=== PATIENT | female | born 1955 | race African-American/Black ===

== ENCOUNTER 2017-04-02 10:15 | Emergency (ER) | payer MEDICAID ==
[~2017-04-02] VITALS: Ht 170.2 cm; Wt 72.0 kg
[2017-04-02] MEDS ORDERED: ACETAMINOPHEN 325MG TABLET PO ONE (12:00)
[2017-04-02 12:17] VITALS: BP 183/114
== END 2017-04-02 12:59 | disposition home or self-care (01) ==
LOC: ER 11:17
DX: S60.456A Superficial foreign body of right little finger, initial encounter (principal); I11.9 Hypertensive heart disease without heart failure; F17.210 Nicotine dependence, cigarettes, uncomplicated; Z98.51 Tubal ligation status; Z88.0 Allergy status to penicillin; Z87.828 Personal history of other (healed) physical injury and trauma; W45.8XXA Other foreign body or object entering through skin, initial encounter; Y93.89 Activity, other specified; Y92.018 Other place in single-family (private) house as the place of occurrence of the external cause
CPT/HCPCS: 73130; 99284

== ENCOUNTER 2017-05-31 12:19 | Emergency (ER) | payer MEDICAID ==
[~2017-05-31] VITALS: Ht 170.2 cm; Wt 64.0 kg
[2017-05-31 14:48] LABS: BASOPHILS % 0.5 % (0.0-2.0); EOSINOPHILS % 2.6 % (0.0-5.0); HEMATOCRIT. 39.4 % (36.0-48.0); HEMOGLOBIN. 13.4 g/dL (12.0-16.0); LYMPHOCYTES % 40.2 % (20.0-50.0); MEAN CORPUSCULAR HEMOGLOBIN 30.8 pg (28.0-32.0); MEAN CORPUSCULAR VOLUME 90.5 fL (81.0-99.0); MEAN PLATELET VOLUME 8.9 fl (7.4-10.4); MONOCYTES % 9.3 % (2.0-8.0); NEUTROPHILS % 47.4 % (40.0-76.0); PLATELET 185 x1000/uL (130-400); RED BLOOD CELL COUNT 4.36 mill/uL (4.2-5.4); RED CELL DISTRIBUTION WIDTH 12.2 % (11.6-14.6)
[2017-05-31 14:53] LABS: INR 1.1; PROTHROMBIN TIME 11.2 sec (9.4-11.6)
[2017-05-31 14:59] VITALS: BP 146/87
[2017-05-31 15:04] LABS: CARBON DIOXIDE 28 mEq/L (21-32); CHLORIDE 109 mEq/L (98-107)
[2017-05-31 15:06] LABS: TROPONIN I 0.02 ng/mL (0.00-0.04)
[2017-05-31] MEDS ORDERED: MAGNESIUM 2 G PREMIX 50 ML IV NR (16:15)
[2017-05-31] MEDS ORDERED: POTASSIUM CHLORIDE 20MEQ TABLET SR PO SCH (17:00)
== END 2017-05-31 18:28 | disposition home or self-care (01) ==
LOC: ER 12:32
DX: R51 Headache (principal); R47.81 Slurred speech; I10 Essential (primary) hypertension; R20.0 Anesthesia of skin; H53.8 Other visual disturbances; F17.200 Nicotine dependence, unspecified, uncomplicated; Z88.0 Allergy status to penicillin; Z86.73 Personal history of transient ischemic attack (TIA), and cerebral infarction without residual deficits
CPT/HCPCS: 36415; 70450; 70551; 71010; 80053; 83735; 83880; 84484; 85025; 85610; 93005; 96365; 99285; J3475; Z7610

== ENCOUNTER 2017-08-29 02:56 | Emergency (ER) | payer MEDICAID ==
[~2017-08-29] VITALS: Ht 170.2 cm; Wt 68.0 kg
[2017-08-29 03:04] VITALS: BP 99/82
== END 2017-08-29 04:05 | disposition left against medical advice (07) ==
LOC: ER 02:56
DX: Z53.21 Procedure and treatment not carried out due to patient leaving prior to being seen by health care provider (principal)

== ENCOUNTER 2018-03-28 22:26 | Emergency (ER) | payer MEDICAID ==
[~2018-03-28] VITALS: Ht 167.6 cm; Wt 73.0 kg
[2018-03-28] MEDS ORDERED: KETOROLAC 30MG/ML VIAL IV ONE (23:30)
[2018-03-29 00:41] VITALS: BP 140/86
== END 2018-03-29 00:39 | disposition home or self-care (01) ==
LOC: ER 23:18
DX: S83.91XA Sprain of unspecified site of right knee, initial encounter (principal); E11.9 Type 2 diabetes mellitus without complications; I10 Essential (primary) hypertension; F20.9 Schizophrenia, unspecified; R60.0 Localized edema; Z86.19 Personal history of other infectious and parasitic diseases; Z88.0 Allergy status to penicillin; X58.XXXA Exposure to other specified factors, initial encounter; Y93.89 Activity, other specified; Y92.89 Other specified places as the place of occurrence of the external cause; Y99.8 Other external cause status
CPT/HCPCS: 73552; 73560; 96374; 99284; J1885; L1830; Z7610

== ENCOUNTER 2018-10-23 08:56 | Inpatient (IN) | payer MEDICAID ==
[~2018-10-23] VITALS: Ht 170.2 cm; Wt 93.5 kg
[2018-10-23] MEDS ORDERED: METHYLPREDNISOLONE SOD SUCC 125 MG/2 ML VIAL IV ONE (09:30)
[2018-10-23] MEDS ORDERED: FAMOTIDINE 20MG/2ML VIAL IV ONE (09:30)
[2018-10-23] MEDS ORDERED: DIPHENHYDRAMINE 50MG/ML VIAL IV ONE (09:30)
[2018-10-23 09:43] LABS: BASOPHILS % 0.7 % (0.0-2.0); EOSINOPHILS % 1.8 % (0.0-5.0); HEMATOCRIT. 40.2 % (36.0-48.0); HEMOGLOBIN. 13.1 g/dL (12.0-16.0); LYMPHOCYTES % 35.3 % (20.0-50.0); MEAN CORPUSCULAR HEMOGLOBIN 29.3 pg (28.0-32.0); MEAN PLATELET VOLUME 9.1 fl (7.4-10.4); MONOCYTES % 12.2 % (2.0-8.0); PLATELET 188 x1000/uL (130-400); RED BLOOD CELL COUNT 4.47 mill/uL (4.2-5.4); RED CELL DISTRIBUTION WIDTH 12.3 % (11.6-14.6)
[2018-10-23 09:50] LABS: CHLORIDE 114 mEq/L (98-107)
[2018-10-23] MEDS ORDERED: DEXT 5%/0.45% NACL 1000ML 1,000 ML IV SCH (15:00)
[2018-10-23] MEDS ORDERED: HYDRALAZINE 20MG/ML VIAL IV PRN (15:00)
[2018-10-23] MEDS ORDERED: ONDANSETRON HCL 4MG/2ML INJ IV PRN (15:00)
[2018-10-23] MEDS ORDERED: IPRATROPIUM/ALBUTEROL 0.5-3(2.5)MG/3ML NEB HHN PRN (16:45)
[2018-10-23] MEDS: METHYLPREDNISOLONE SOD SUCC 40 MG/ML VIAL IV SCH ×2 (16:46→23:55)
[2018-10-23 18:00] VITALS: BP 170/91
[2018-10-23 18:02] VITALS: BP 170/91
[2018-10-23] MEDS: DIPHENHYDRAMINE 50MG/ML VIAL IV PRN (18:28)
[2018-10-23] MEDS ORDERED: LISI10TA5 PO (19:06)
[2018-10-23] MEDS ORDERED: ABIL10 PO (19:06)
[2018-10-23] MEDS ORDERED: QUET100T PO (19:06)
[2018-10-23] MEDS ORDERED: ATOR10TA PO (19:06)
[2018-10-23 20:00] VITALS: BP 163/82
[2018-10-23] MEDS: QUETIAPINE FUMARATE 100MG TABLET PO SCH (21:14)
[2018-10-23] MEDS: FAMOTIDINE 20MG/2ML VIAL IV SCH (21:14)
[2018-10-23] MEDS: ARIPIPRAZOLE 10MG TABLET PO SCH (21:14)
[2018-10-23] MEDS: AMLODIPINE 10MG TABLET PO SCH (21:15)
[2018-10-23] MEDS: GUAIFENESIN 600MG ER TABLET PO SCH (21:15)
[2018-10-23] MEDS: ACETAMINOPHEN 325MG TABLET PO PRN (21:33)
[2018-10-23 22:00] VITALS: BP 126/57
[2018-10-23] MEDS: ATORVASTATIN CALCIUM 10MG TABLET PO SCH (23:56)
[2018-10-24] VITALS (17 sets, daily range): BP systolic 129–186; BP diastolic 62–105
[2018-10-24 03:58] LABS: CLARITY URINE CLEAR (CLEAR); COLOR URINE YELLOW (YELLOW); KETONES URINE TRACE (NEGATIVE); LEUKOCYTE ESTERASE URINE NEGATIVE (NEGATIVE); NITRITE URINE NEGATIVE (NEGATIVE); OCCULT BLOOD URINE NEGATIVE (NEGATIVE); PROTEIN URINE 3+ (NEGATIVE); SPECIFIC GRAVITY URINE 1.024 (1.005-1.030); UROBILINOGEN URINE 0.2 E.U./dL (0.2-1.0)
[2018-10-24 04:33] LABS: *BARBITURATES SCREEN URINE NEGATIVE (NEGATIVE); *BENZODIAZEPINES SCREEN URINE NEGATIVE (NEGATIVE); *COCAINE SCREEN URINE NEGATIVE (NEGATIVE); METHADONE URINE SCREEN NEGATIVE (NEGATIVE); OPIATES URINE SCREEN NEGATIVE (NEGATIVE)
[2018-10-24 04:34] LABS: *AMPHETAMINES SCREEN URINE PRESUMTIVE POSITIVE (NEGATIVE); CANNABINOID URINE SCREEN NEGATIVE (NEGATIVE); PHENCYCLIDINE URINE SCREEN NEGATIVE (NEGATIVE)
[2018-10-24 06:40] LABS: BASOPHILS % 0.1 % (0.0-2.0); HEMATOCRIT. 38.4 % (36.0-48.0); HEMOGLOBIN. 12.8 g/dL (12.0-16.0); LYMPHOCYTES % 10.3 % (20.0-50.0); MEAN CORPUSCULAR HEMOGLOBIN 29.6 pg (28.0-32.0); MEAN CORPUSCULAR VOLUME 88.6 fL (81.0-99.0); MEAN PLATELET VOLUME 9.1 fl (7.4-10.4); MONOCYTES % 4.6 % (2.0-8.0); PLATELET 195 x1000/uL (130-400); RED BLOOD CELL COUNT 4.33 mill/uL (4.2-5.4); RED CELL DISTRIBUTION WIDTH 12.3 % (11.6-14.6)
[2018-10-24 07:16] LABS: CHLORIDE 109 mEq/L (98-107)
[2018-10-24] MEDS: ARIPIPRAZOLE 10MG TABLET PO SCH (08:00)
[2018-10-24] MEDS: QUETIAPINE FUMARATE 100MG TABLET PO SCH (08:00)
[2018-10-24] MEDS: DIPHENHYDRAMINE 50MG/ML VIAL IV PRN (08:00)
[2018-10-24] MEDS: GUAIFENESIN 600MG ER TABLET PO SCH ×2 (08:00→21:53)
[2018-10-24] MEDS: FAMOTIDINE 20MG/2ML VIAL IV SCH ×2 (08:00→21:53)
[2018-10-24] MEDS: AMLODIPINE 10MG TABLET PO SCH (08:00)
[2018-10-24] MEDS: METHYLPREDNISOLONE SOD SUCC 40 MG/ML VIAL IV SCH ×3 (08:07→23:33)
[2018-10-24] MEDS: ACETAMINOPHEN 325MG TABLET PO PRN (09:06)
[2018-10-24] MEDS ORDERED: MORPHINE SULFATE 4 MG/ML CPJ (NOT FOR IM USE) IV PRN (10:00)
[2018-10-24] MEDS ORDERED: CLONIDINE 0.1MG TABLET PO PRN (10:00)
[2018-10-24] MEDS ORDERED: MORPHINE SULFATE 4 MG/ML CPJ (NOT FOR IM USE) IV NR (10:15)
[2018-10-24] MEDS: LOSARTAN POTASSIUM 100 MG TABLET PO SCH (10:20)
[2018-10-24] MEDS: ASPIRIN 81MG EC TABLET PO SCH (12:15)
[2018-10-24] MEDS ORDERED: CLONIDINE 0.2MG TABLET PO PRN (13:15)
[2018-10-24] MEDS: ATORVASTATIN CALCIUM 10MG TABLET PO SCH (21:53)
[2018-10-25] VITALS (10 sets, daily range): BP systolic 82–167; BP diastolic 30–100
[2018-10-25] MEDS: METHYLPREDNISOLONE SOD SUCC 40 MG/ML VIAL IV SCH (06:22)
[2018-10-25 06:54] LABS: BASOPHILS % 0.1 % (0.0-2.0); HEMATOCRIT. 37.8 % (36.0-48.0); HEMOGLOBIN. 12.8 g/dL (12.0-16.0); LYMPHOCYTES % 7.9 % (20.0-50.0); MEAN CORPUSCULAR HEMOGLOBIN 29.9 pg (28.0-32.0); MEAN CORPUSCULAR VOLUME 88.3 fL (81.0-99.0); MONOCYTES % 4.8 % (2.0-8.0); NEUTROPHILS % 87.2 % (40.0-76.0); PLATELET 209 x1000/uL (130-400); RED BLOOD CELL COUNT 4.28 mill/uL (4.2-5.4); RED CELL DISTRIBUTION WIDTH 12.4 % (11.6-14.6)
[2018-10-25 07:16] LABS: CHLORIDE 112 mEq/L (98-107)
[2018-10-25] MEDS: AMLODIPINE 10MG TABLET PO SCH (09:38)
[2018-10-25] MEDS: ACETAMINOPHEN 325MG TABLET PO PRN (09:38)
[2018-10-25] MEDS: QUETIAPINE FUMARATE 100MG TABLET PO SCH (09:38)
[2018-10-25] MEDS: ARIPIPRAZOLE 10MG TABLET PO SCH (09:38)
[2018-10-25] MEDS: LOSARTAN POTASSIUM 100 MG TABLET PO SCH (09:38)
[2018-10-25] MEDS: ASPIRIN 81MG EC TABLET PO SCH (09:38)
[2018-10-25] MEDS: GUAIFENESIN 600MG ER TABLET PO SCH (09:38)
[2018-10-25] MEDS: FAMOTIDINE 20MG/2ML VIAL IV SCH (09:38)
== END 2018-10-25 14:37 | disposition home or self-care (01) | DRG 811 ==
LOC: ER 09:19 → 3WST 13:47 → EDBEDREQTM 14:00 → EDBEDREQ 14:00 → ENRESERV 15:41
PROVIDERS: ADMIT Internal Medicine; ATTEND Internal Medicine
DX: T78.3XXA Angioneurotic edema, initial encounter (principal); J96.00 Acute respiratory failure, unspecified whether with hypoxia or hypercapnia; E87.8 Other disorders of electrolyte and fluid balance, not elsewhere classified; E44.1 Mild protein-calorie malnutrition; F20.9 Schizophrenia, unspecified; I10 Essential (primary) hypertension; B19.20 Unspecified viral hepatitis C without hepatic coma; E11.9 Type 2 diabetes mellitus without complications; E78.5 Hyperlipidemia, unspecified; J06.9 Acute upper respiratory infection, unspecified; R07.89 Other chest pain; E66.9 Obesity, unspecified; F15.10 Other stimulant abuse, uncomplicated
CPT/HCPCS: 36415; 71045; 80048; 80061; 80305; 82962; 83036; 83735; 84443; 84484; 86850; 86900; 86927; 92610; 93306; 96374; 96375; 99285; J0360; J1200; J2270; J2405; J2920; J2930; J3490; J7050; J7620; P9017

== ENCOUNTER 2018-11-13 19:16 | Inpatient (IN) | payer MEDICAID ==
[~2018-11-13] VITALS: Ht 170.2 cm; Wt 88.5 kg
[~2018-11-13 19:16] MED LIST: ABIL10 PO; ATOR10TA PO; QUET100T PO
[2018-11-13] MEDS ORDERED: KETOROLAC 30MG/ML VIAL IV STA (20:18)
[2018-11-13] MEDS ORDERED: ONDANSETRON HCL 4MG/2ML INJ IV STA (20:18)
[2018-11-13] MEDS ORDERED: SODIUM CHLORIDE 0.9% 1,000 ML IV ONE (20:18)
[2018-11-13 20:46] LABS: BASOPHILS % 0.5 % (0.0-2.0); EOSINOPHILS % 1.6 % (0.0-5.0); HEMATOCRIT. 43.2 % (36.0-48.0); HEMOGLOBIN. 14.2 g/dL (12.0-16.0); LYMPHOCYTES % 32.3 % (20.0-50.0); MEAN CORPUSCULAR HEMOGLOBIN 29.9 pg (28.0-32.0); MEAN CORPUSCULAR VOLUME 90.7 fL (81.0-99.0); MEAN PLATELET VOLUME 8.8 fl (7.4-10.4); MONOCYTES % 10.9 % (2.0-8.0); NEUTROPHILS % 54.7 % (40.0-76.0); PLATELET 180 x1000/uL (130-400); RED BLOOD CELL COUNT 4.77 mill/uL (4.2-5.4); RED CELL DISTRIBUTION WIDTH 12.7 % (11.6-14.6)
[2018-11-13 20:54] LABS: CHLORIDE 110 mEq/L (98-107)
[2018-11-13 21:04] LABS: CLARITY URINE CLEAR (CLEAR); COLOR URINE YELLOW (YELLOW); KETONES URINE NEGATIVE (NEGATIVE); LEUKOCYTE ESTERASE URINE TRACE (NEGATIVE); NITRITE URINE NEGATIVE (NEGATIVE); OCCULT BLOOD URINE TRACE (NEGATIVE); PROTEIN URINE 2+ (NEGATIVE); SPECIFIC GRAVITY URINE 1.022 (1.005-1.030); UROBILINOGEN URINE 0.2 E.U./dL (0.2-1.0)
[2018-11-13] MEDS ORDERED: MORPHINE SULFATE 4 MG/ML CPJ (NOT FOR IM USE) IV ONE (21:30)
[2018-11-13] MEDS ORDERED: DIATR MEGLU/DIATRIZOATE SOLN 30ML ONE (21:34)
[2018-11-13] MEDS ORDERED: FUROSEMIDE 40MG/4ML VIAL IVP ONE (22:45)
[2018-11-13] MEDS ORDERED: CLONIDINE 0.2MG TABLET PO ONE (23:15)
[2018-11-14] MEDS ORDERED: MORPHINE SULFATE 4 MG/ML CPJ (NOT FOR IM USE) IV ONE (01:15)
[2018-11-14 05:34] VITALS: BP 124/49
[2018-11-14 08:00] VITALS: BP 111/70
[2018-11-14] MEDS ORDERED: CLONIDINE 0.1MG TABLET PO PRN (08:45)
[2018-11-14] MEDS ORDERED: ACETAMINOPHEN 325MG TABLET PO PRN (08:45)
[2018-11-14] MEDS ORDERED: IPRATROPIUM/ALBUTEROL 0.5-3(2.5)MG/3ML NEB INH PRN (08:45)
[2018-11-14] MEDS ORDERED: ONDANSETRON HCL 4MG/2ML INJ IV PRN (08:45)
[2018-11-14] MEDS ORDERED: MAGNESIUM/ALUMINUM HYDROXIDE/SIMETHICONE 30ML UDC PO PRN (08:45)
[2018-11-14] MEDS: ENOXAPARIN 40MG/0.4ML SYR SUBCUT SCH (09:07)
[2018-11-14] MEDS: MORPHINE SULFATE 2 MG/ML CPJ (NOT FOR IM USE) IV PRN ×2 (09:07→18:54)
[2018-11-14 09:57] LABS: PHOSPHORUS 3.4 mg/dL (2.5-4.9)
[2018-11-14] MEDS: DIPHENHYDRAMINE 50MG/ML VIAL IV PRN (11:15)
[2018-11-14 11:16] LABS: HEPATITIS B SURFACE ANTIGEN NEGATIVE
[2018-11-14 11:46] LABS: HEPATITIS A AB IGM NEGATIVE (NEGATIVE)
[2018-11-14 12:12] VITALS: BP 108/69
[2018-11-14 14:19] LABS: *AMPHETAMINES SCREEN URINE PRESUMTIVE POSITIVE (NEGATIVE); *BARBITURATES SCREEN URINE NEGATIVE (NEGATIVE)
[2018-11-14 14:20] LABS: *BENZODIAZEPINES SCREEN URINE NEGATIVE (NEGATIVE); *COCAINE SCREEN URINE PRESUMTIVE POSITIVE (NEGATIVE); CANNABINOID URINE SCREEN NEGATIVE (NEGATIVE); METHADONE URINE SCREEN NEGATIVE (NEGATIVE); OPIATES URINE SCREEN NEGATIVE (NEGATIVE); PHENCYCLIDINE URINE SCREEN NEGATIVE (NEGATIVE)
[2018-11-14 16:08] LABS: CREATINE KINASE MB FRACTION 2.6 ng/mL (0.5-3.6)
[2018-11-14 16:36] VITALS: BP 130/87
[2018-11-14] MEDS: AZITHROMYCIN 500 MG in DEXT 5% WATER 250 ML IV SCH (17:30)
[2018-11-14 20:00] VITALS: BP 128/76
[2018-11-14 23:57] VITALS: BP 106/55
[2018-11-15 03:53] VITALS: BP 150/103
[2018-11-15 05:20] LABS: HIV SCREEN 4G Non Reactive (Non Reactive)
[2018-11-15 05:33] VITALS: BP 139/90
[2018-11-15 07:15] LABS: BASOPHILS % 0.5 % (0.0-2.0); EOSINOPHILS % 2.5 % (0.0-5.0); HEMATOCRIT. 39.6 % (36.0-48.0); HEMOGLOBIN. 13.5 g/dL (12.0-16.0); LYMPHOCYTES % 39.9 % (20.0-50.0); MEAN CORPUSCULAR HEMOGLOBIN 30.2 pg (28.0-32.0); MEAN CORPUSCULAR VOLUME 88.6 fL (81.0-99.0); MEAN PLATELET VOLUME 9.1 fl (7.4-10.4); MONOCYTES % 12.1 % (2.0-8.0); PLATELET 190 x1000/uL (130-400); RED BLOOD CELL COUNT 4.48 mill/uL (4.2-5.4); RED CELL DISTRIBUTION WIDTH 12.8 % (11.6-14.6)
[2018-11-15 07:28] LABS: CHLORIDE 110 mEq/L (98-107)
[2018-11-15 08:00] VITALS: BP 160/95
[2018-11-15 08:03] LABS: LDL CHOLESTEROL 90 mg/dL (5-100)
[2018-11-15 08:06] LABS: HDL CHOLESTEROL 56 mg/dL (40-59)
[2018-11-15] MEDS: DIPHENHYDRAMINE 50MG/ML VIAL IV PRN (08:52)
[2018-11-15] MEDS: ENOXAPARIN 40MG/0.4ML SYR SUBCUT SCH (09:12)
[2018-11-15] MEDS: MORPHINE SULFATE 2 MG/ML CPJ (NOT FOR IM USE) IV PRN ×3 (09:12→15:06)
[2018-11-15] MEDS ORDERED: DIPHENHYDRAMINE 50MG/ML VIAL IV NR (09:45)
[2018-11-15] MEDS ORDERED: METHYLPREDNISOLONE SOD SUCC 125 MG/2 ML VIAL IV NR (09:45)
[2018-11-15 12:00] VITALS: BP 143/96
[2018-11-15] MEDS: ASPIRIN 81MG EC TABLET PO SCH (12:17)
[2018-11-15] MEDS: AMLODIPINE 2.5MG TABLET PO SCH ×2 (12:18→20:23)
[2018-11-15 16:00] VITALS: BP 130/83
[2018-11-15] MEDS: AZITHROMYCIN 500 MG in DEXT 5% WATER 250 ML IV SCH (16:42)
[2018-11-15 20:10] VITALS: BP 126/82
[2018-11-16 00:05] VITALS: BP 141/90
[2018-11-16 08:12] VITALS: BP 143/79
[2018-11-16] MEDS: MORPHINE SULFATE 2 MG/ML CPJ (NOT FOR IM USE) IV PRN (08:33)
[2018-11-16] MEDS: ENOXAPARIN 40MG/0.4ML SYR SUBCUT SCH (09:00)
[2018-11-16] MEDS: ASPIRIN 81MG EC TABLET PO SCH (09:00)
[2018-11-16] MEDS: AMLODIPINE 2.5MG TABLET PO SCH (09:00)
[2018-11-16 12:01] VITALS: BP 148/74
[2018-11-16 15:16] VITALS: BP 133/89
[2018-11-16 15:51] VITALS: BP 133/89
[2018-11-16] MEDS: AZITHROMYCIN 500 MG in DEXT 5% WATER 250 ML IV SCH (16:00)
[2018-11-16 18:07] LABS: BASOPHILS % 0.4 % (0.0-2.0); EOSINOPHILS % 0.5 % (0.0-5.0); HEMOGLOBIN. 13.2 g/dL (12.0-16.0); LYMPHOCYTES % 26.7 % (20.0-50.0); MEAN CORPUSCULAR HEMOGLOBIN 29.9 pg (28.0-32.0); MEAN CORPUSCULAR VOLUME 88.6 fL (81.0-99.0); MEAN PLATELET VOLUME 10.1 fl (7.4-10.4); MONOCYTES % 9.8 % (2.0-8.0); NEUTROPHILS % 62.6 % (40.0-76.0); PLATELET 186 x1000/uL (130-400); RED CELL DISTRIBUTION WIDTH 12.7 % (11.6-14.6)
[2018-11-16 18:20] LABS: CHLORIDE 109 mEq/L (98-107)
== END 2018-11-16 17:05 | disposition home or self-care (01) | DRG 194 ==
LOC: ER 19:16 → EDBEDREQ 11-14 01:23 → EDBEDREQSVC 11-14 01:23 → EDBEDREQTM 11-14 01:23 → ENRESERV 11-14 02:44 → 6WST 11-14 05:24
PROVIDERS: ADMIT Internal Medicine; ATTEND Internal Medicine
DX: I11.0 Hypertensive heart disease with heart failure (principal); J18.1 Lobar pneumonia, unspecified organism; E46 Unspecified protein-calorie malnutrition; C64.2 Malignant neoplasm of left kidney, except renal pelvis; G89.3 Neoplasm related pain (acute) (chronic); I50.31 Acute diastolic (congestive) heart failure; F20.9 Schizophrenia, unspecified; E11.9 Type 2 diabetes mellitus without complications; E78.00 Pure hypercholesterolemia, unspecified; E78.5 Hyperlipidemia, unspecified; B19.20 Unspecified viral hepatitis C without hepatic coma; F19.90 Other psychoactive substance use, unspecified, uncomplicated; F15.10 Other stimulant abuse, uncomplicated; R47.1 Dysarthria and anarthria; K80.20 Calculus of gallbladder without cholecystitis without obstruction; F14.10 Cocaine abuse, uncomplicated; Z79.899 Other long term (current) drug therapy; Z88.0 Allergy status to penicillin; Z71.51 Drug abuse counseling and surveillance of drug abuser; Z68.30 Body mass index [BMI] 30.0-30.9, adult
CPT/HCPCS: 36415; 71045; 74176; 80048; 80061; 80305; 82550; 82553; 83036; 83735; 83880; 84100; 84443; 84484; 85379; 86705; 86709; 86803; 87340; 87389; 93005; 96374; 96375; 97116; 97162; 97166; 99285; J0456; J1200; J1650; J1885; J1940; J2270; J2405; J2930; J7030; J7040; J7060; Q9963

== ENCOUNTER 2019-03-24 08:25 | Emergency (ER) | payer MEDICAID ==
[~2019-03-24] VITALS: Ht 167.6 cm; Wt 85.0 kg
[2019-03-24] MEDS ORDERED: SODIUM CHLORIDE 0.9% 1,000 ML IV ONE (08:58)
[2019-03-24] MEDS ORDERED: ONDANSETRON HCL 4MG/2ML INJ IV STA (08:58)
[2019-03-24] MEDS ORDERED: MORPHINE SULFATE 4 MG/ML CPJ (NOT FOR IM USE) IV STA (08:58)
[2019-03-24 09:09] LABS: CHLORIDE 111 mEq/L (98-107)
[2019-03-24 09:12] LABS: BASOPHILS % 0.6 % (0.0-2.0); EOSINOPHILS % 1.9 % (0.0-5.0); HEMATOCRIT. 38.3 % (36.0-48.0); HEMOGLOBIN. 12.8 g/dL (12.0-16.0); LYMPHOCYTES % 40.1 % (20.0-50.0); MEAN CORPUSCULAR HEMOGLOBIN 29.6 pg (28.0-32.0); MEAN CORPUSCULAR VOLUME 88.7 fL (81.0-99.0); MONOCYTES % 9.5 % (2.0-8.0); NEUTROPHILS % 47.9 % (40.0-76.0); PLATELET 193 x1000/uL (130-400); RED BLOOD CELL COUNT 4.32 mill/uL (4.2-5.4); RED CELL DISTRIBUTION WIDTH 12.8 % (11.6-14.6)
[2019-03-24 11:15] VITALS: BP 133/77
== END 2019-03-24 11:25 | disposition home or self-care (01) ==
LOC: ER 08:29
DX: M71.22 Synovial cyst of popliteal space [Baker], left knee (principal); M17.12 Unilateral primary osteoarthritis, left knee; F12.10 Cannabis abuse, uncomplicated; I11.0 Hypertensive heart disease with heart failure; I50.9 Heart failure, unspecified; E11.9 Type 2 diabetes mellitus without complications; E78.00 Pure hypercholesterolemia, unspecified; Z87.442 Personal history of urinary calculi; Z88.0 Allergy status to penicillin; Z79.899 Other long term (current) drug therapy
CPT/HCPCS: 36415; 73560; 80053; 84550; 85025; 93970; 96374; 96375; 99284; J2270; J2405; J7030; Z7610

== ENCOUNTER 2019-04-28 18:12 | Inpatient (IN) | payer MEDICAID ==
[~2019-04-28] VITALS: Ht 165.1 cm; Wt 65.8 kg
[2019-04-28] MEDS ORDERED: ONDANSETRON HCL 4MG/2ML INJ IV STA (19:26)
[2019-04-28] MEDS ORDERED: FAMOTIDINE 20MG/2ML VIAL IV STA (19:26)
[2019-04-28] MEDS ORDERED: SODIUM CHLORIDE 0.9% 1,000 ML IV ONE (19:26)
[2019-04-28 21:36] LABS: HEMATOCRIT. 42.9 % (36.0-48.0); HEMOGLOBIN. 13.9 g/dL (12.0-16.0); MEAN CORPUSCULAR HEMOGLOBIN 29.3 pg (28.0-32.0); MEAN CORPUSCULAR VOLUME 90.6 fL (81.0-99.0); MEAN PLATELET VOLUME 9.5 fl (7.4-10.4); PLATELET 176 x1000/uL (130-400); RED BLOOD CELL COUNT 4.74 mill/uL (4.2-5.4); RED CELL DISTRIBUTION WIDTH 12.8 % (11.6-14.6)
[2019-04-28 21:44] LABS: CHLORIDE 121 mEq/L (98-107)
[2019-04-28 21:48] LABS: CLARITY URINE CLEAR (CLEAR); COLOR URINE YELLOW (YELLOW); KETONES URINE NEGATIVE (NEGATIVE); LEUKOCYTE ESTERASE URINE NEGATIVE (NEGATIVE); NITRITE URINE NEGATIVE (NEGATIVE); OCCULT BLOOD URINE 1+ (NEGATIVE); PROTEIN URINE 3+ (NEGATIVE); SPECIFIC GRAVITY URINE 1.022 (1.005-1.030); UROBILINOGEN URINE 0.2 E.U./dL (0.2-1.0)
[2019-04-28 21:51] LABS: ETHANOL BLOOD < 10 mg/dL
[2019-04-28] MEDS ORDERED: LEVOFLOXACIN 750MG PREMIX 150 ML IV ONE (22:45)
[2019-04-28] MEDS ORDERED: SODIUM CHLORIDE 0.9% 1000ML BAG (SEPSIS BOLUS) IV ONE (22:45)
[2019-04-28] MEDS ORDERED: METRONIDAZOLE 500 MG PREMIX 100 ML IV ONE (22:45)
[2019-04-28 22:50] LABS: *AMPHETAMINES SCREEN URINE PRESUMTIVE POSITIVE (NEGATIVE); *BARBITURATES SCREEN URINE NEGATIVE (NEGATIVE); *BENZODIAZEPINES SCREEN URINE NEGATIVE (NEGATIVE); *COCAINE SCREEN URINE PRESUMTIVE POSITIVE (NEGATIVE); CANNABINOID URINE SCREEN NEGATIVE (NEGATIVE); METHADONE URINE SCREEN NEGATIVE (NEGATIVE); OPIATES URINE SCREEN NEGATIVE (NEGATIVE); PHENCYCLIDINE URINE SCREEN NEGATIVE (NEGATIVE)
[2019-04-28 23:00] LABS: PLATELET ESTIMATE NORMAL
[2019-04-28] MEDS ORDERED: MORPHINE SULFATE 4 MG/ML CPJ (NOT FOR IM USE) IV ONE (23:00)
[2019-04-28 23:24] LABS: INR 1.1
[2019-04-29 00:30] VITALS: BP 159/90
[2019-04-29] MEDS ORDERED: ACETAMINOPHEN 325MG TABLET PO PRN (03:15)
[2019-04-29] MEDS ORDERED: CEFTRIAXONE 1 G PREMIX 50 ML IV SCH (03:15)
[2019-04-29] MEDS: HYDROCODONE/ACETAMINOPHEN 5/325MG TABLET PO PRN (03:42)
[2019-04-29 04:00] VITALS: BP 147/109
[2019-04-29 08:00] VITALS: BP 150/93
[2019-04-29] MEDS: DIPHENHYDRAMINE 50MG/ML VIAL IV PRN ×2 (08:01→17:33)
[2019-04-29 09:52] LABS: PHOSPHORUS 2.6 mg/dL (2.5-4.9)
[2019-04-29] MEDS ORDERED: HALOPERIDOL LACTATE 5MG/ML VIAL IM NR (10:30)
[2019-04-29] MEDS: AMLODIPINE 5MG TABLET PO SCH (10:35)
[2019-04-29] MEDS: SODIUM CHLORIDE 0.9% 1,000 ML IV SCH (11:24)
[2019-04-29] MEDS: METRONIDAZOLE 500 MG PREMIX 100 ML IV SCH ×3 (11:24→23:22)
[2019-04-29 12:00] VITALS: BP 146/95
[2019-04-29 16:00] VITALS: BP 140/90
[2019-04-29 20:00] VITALS: BP 194/93
[2019-04-29] MEDS ORDERED: ARIPIPRAZOLE 10MG TABLET PO SCH (21:00)
[2019-04-29] MEDS: LEVOFLOXACIN 750MG PREMIX 150 ML IV SCH (21:41)
[2019-04-29] MEDS: QUETIAPINE FUMARATE 50MG TABLET PO SCH (21:41)
[2019-04-29] MEDS: ARIPIPRAZOLE 5MG TABLET PO SCH (21:41)
[2019-04-29] MEDS: ATORVASTATIN CALCIUM 10MG TABLET PO SCH (21:41)
[2019-04-30] VITALS: BP 125/80
[2019-04-30 04:00] VITALS: BP 147/82
[2019-04-30 08:00] VITALS: BP 108/65
[2019-04-30] MEDS: AMLODIPINE 5MG TABLET PO SCH (09:00)
[2019-04-30] MEDS: METRONIDAZOLE 500 MG PREMIX 100 ML IV SCH ×2 (09:15→16:52)
[2019-04-30] MEDS: SODIUM CHLORIDE 0.9% 1,000 ML IV SCH (09:15)
[2019-04-30] MEDS: HYDROCODONE/ACETAMINOPHEN 5/325MG TABLET PO PRN ×2 (09:28→21:08)
[2019-04-30] MEDS: DIPHENHYDRAMINE 50MG/ML VIAL IV PRN ×2 (09:29→21:08)
[2019-04-30 12:00] VITALS: BP 153/92
[2019-04-30 16:00] VITALS: BP 157/91
[2019-04-30 20:00] VITALS: BP 148/81
[2019-04-30] MEDS: QUETIAPINE FUMARATE 50MG TABLET PO SCH (21:03)
[2019-04-30] MEDS: ATORVASTATIN CALCIUM 10MG TABLET PO SCH (21:03)
[2019-04-30] MEDS: LEVOFLOXACIN 750MG PREMIX 150 ML IV SCH (21:08)
[2019-04-30] MEDS: ARIPIPRAZOLE 5MG TABLET PO SCH (21:08)
[2019-05-01] VITALS: BP 144/94
[2019-05-01] MEDS: METRONIDAZOLE 500 MG PREMIX 100 ML IV SCH ×3 (00:32→15:49)
[2019-05-01 08:00] VITALS: BP 147/92
[2019-05-01] MEDS: SODIUM CHLORIDE 0.9% 1,000 ML IV SCH (08:00)
[2019-05-01] MEDS: AMLODIPINE 5MG TABLET PO SCH (08:48)
[2019-05-01 12:00] VITALS: BP 134/85
[2019-05-02 19:09] LABS: OVA & PARASITE EXAM Final report (.)
== END 2019-05-01 16:16 | disposition left against medical advice (07) | DRG 249 ==
LOC: ER 18:12 → 8WST 23:16 → EDBEDREQTM 23:17 → EDBEDREQ 23:17 → ENRESERV 23:29 → CANRESERV 23:29 → ENRESERV 23:53
PROVIDERS: ADMIT Internal Medicine; ATTEND Internal Medicine
DX: K52.9 Noninfective gastroenteritis and colitis, unspecified (principal); I47.2 Ventricular tachycardia; E87.2 Acidosis; I50.32 Chronic diastolic (congestive) heart failure; I11.0 Hypertensive heart disease with heart failure; E83.42 Hypomagnesemia; C64.2 Malignant neoplasm of left kidney, except renal pelvis; Z87.442 Personal history of urinary calculi; G89.29 Other chronic pain; R80.9 Proteinuria, unspecified; R31.9 Hematuria, unspecified; B18.2 Chronic viral hepatitis C; I49.3 Ventricular premature depolarization; R47.1 Dysarthria and anarthria; E11.9 Type 2 diabetes mellitus without complications; E78.00 Pure hypercholesterolemia, unspecified; K80.20 Calculus of gallbladder without cholecystitis without obstruction; Z85.528 Personal history of other malignant neoplasm of kidney; Z88.0 Allergy status to penicillin; Z79.899 Other long term (current) drug therapy
CPT/HCPCS: 36415; 71045; 74176; 80305; 80320; 81003; 83605; 83735; 83880; 84100; 84484; 87015; 87045; 87177; 87209; 87427; 87449; 87493; 89055; 93005; 93970; 99291; J1200; J1630; J1956; J2270; J2405; J3490; J7030; G0480

== ENCOUNTER 2019-08-27 11:48 | Emergency (ER) | payer MEDICAID ==
[~2019-08-27] VITALS: Ht 170.2 cm; Wt 82.0 kg
[2019-08-27 12:02] VITALS: BP 171/113
== END 2019-08-27 12:24 | disposition left against medical advice (07) ==
LOC: ER 12:06
DX: M25.561 Pain in right knee (principal); Z53.21 Procedure and treatment not carried out due to patient leaving prior to being seen by health care provider

== ENCOUNTER 2019-09-22 22:52 | Emergency (ER) | payer MEDICAID ==
[~2019-09-22] VITALS: Ht 167.6 cm; Wt 68.0 kg
[2019-09-22] MEDS ORDERED: FUROSEMIDE 40MG/4ML VIAL IVP ONE (23:30)
[2019-09-22 23:33] LABS: BASOPHILS % 0.4 % (0.0-2.0); CHLORIDE 110 mEq/L (98-107); EOSINOPHILS % 2.7 % (0.0-5.0); HEMATOCRIT. 38.4 % (36.0-48.0); LYMPHOCYTES % 39.1 % (20.0-50.0); MEAN CORPUSCULAR HEMOGLOBIN 29.8 pg (28.0-32.0); MEAN CORPUSCULAR VOLUME 88.1 fL (81.0-99.0); MEAN PLATELET VOLUME 9.4 fl (7.4-10.4); MONOCYTES % 11.1 % (2.0-8.0); NEUTROPHILS % 46.7 % (40.0-76.0); PLATELET 179 x1000/uL (130-400); RED BLOOD CELL COUNT 4.36 mill/uL (4.2-5.4); RED CELL DISTRIBUTION WIDTH 12.6 % (11.6-14.6)
[2019-09-23] MEDS ORDERED: CALCIUM GLUCONATE 100MG/ML 10ML VIAL IV ONE
[2019-09-23 00:25] VITALS: BP 154/89
== END 2019-09-23 00:27 | disposition home or self-care (01) ==
LOC: ER 22:52
DX: I11.0 Hypertensive heart disease with heart failure (principal); I50.9 Heart failure, unspecified; R06.02 Shortness of breath; E11.9 Type 2 diabetes mellitus without complications; J45.909 Unspecified asthma, uncomplicated; E78.00 Pure hypercholesterolemia, unspecified; F12.10 Cannabis abuse, uncomplicated; Z88.0 Allergy status to penicillin
CPT/HCPCS: 36415; 71045; 80053; 83880; 85025; 93005; 96374; 99285; J1940; J0610

== ENCOUNTER 2019-12-04 13:27 | Emergency (ER) | payer MEDICAID, OTHER ==
[~2019-12-04] VITALS: Ht 170.2 cm; Wt 87.0 kg
[~2019-12-04 13:27] MED LIST changes: +DILT180C66 PO
[2019-12-04 13:57] VITALS: BP 135/70
[2019-12-06] MEDS ORDERED: TOPUD PO (00:58)
[2019-12-06] MEDS ORDERED: METH-612 PO (00:58)
[2019-12-07] MEDS ORDERED: ALBU18HF2 IH (12:00)
[2019-12-07] MEDS ORDERED: FURO40TA5 MT (12:00)
[2019-12-07] MEDS ORDERED: POTA10CA42 MT (12:00)
[2019-12-07] MEDS ORDERED: ATOR20TA65 MT (12:00)
== END 2019-12-04 15:15 | disposition left against medical advice (07) ==
LOC: ER 13:27
DX: R06.02 Shortness of breath (principal); R60.0 Localized edema; E11.9 Type 2 diabetes mellitus without complications; I50.9 Heart failure, unspecified; F31.9 Bipolar disorder, unspecified; J45.909 Unspecified asthma, uncomplicated; F12.10 Cannabis abuse, uncomplicated; Z88.0 Allergy status to penicillin
CPT/HCPCS: 82962; 99281; 99282

== ENCOUNTER 2019-12-08 19:28 | Emergency (ER) | payer MEDICAID ==
[~2019-12-08] VITALS: Ht 167.6 cm; Wt 77.0 kg
[~2019-12-08 19:28] MED LIST changes: +ALBU18HF2 IH; -ATOR10TA PO; +ATOR20TA65 MT; +FURO40TA5 MT; +METH-612 PO; +POTA10CA42 MT; +TOPUD PO
[2019-12-08 21:24] VITALS: BP 148/88
[2019-12-08] MEDS ORDERED: IPRATROPIUM/ALBUTEROL 0.5-3(2.5)MG/3ML NEB HHN ONE (22:15)
[2019-12-08] MEDS ORDERED: PREDNISONE 20MG TABLET PO ONE (22:15)
== END 2019-12-09 00:13 | disposition home or self-care (01) ==
LOC: ER 19:28
DX: R06.02 Shortness of breath (principal); Z53.21 Procedure and treatment not carried out due to patient leaving prior to being seen by health care provider
CPT/HCPCS: J7512; Z7610

== ENCOUNTER 2019-12-09 16:32 | Emergency (ER) | payer MEDICAID ==
[~2019-12-09] VITALS: Ht 172.7 cm; Wt 55.0 kg
[2019-12-09 16:45] VITALS: BP 125/82
== END 2019-12-09 17:39 | disposition left against medical advice (07) ==
LOC: ER 16:32
DX: Z53.21 Procedure and treatment not carried out due to patient leaving prior to being seen by health care provider (principal)

== ENCOUNTER 2019-12-13 12:15 | Emergency (ER) | payer MEDICAID ==
[~2019-12-13] VITALS: Ht 170.2 cm; Wt 80.0 kg
[2019-12-13] MEDS ORDERED: ALBUTEROL (0.083%) 2.5MG/3ML NEB HHN STA (12:40)
[2019-12-13] MEDS ORDERED: IPRATROPIUM BROMIDE (0.02%) 0.5MG/2.5ML NEB HHN STA (12:40)
[2019-12-13 12:58] LABS: BASOPHILS % 0.7 % (0.0-2.0); EOSINOPHILS % 0.3 % (0.0-5.0); HEMATOCRIT. 34.2 % (36.0-48.0); HEMOGLOBIN. 11.5 g/dL (12.0-16.0); LYMPHOCYTES % 29.8 % (20.0-50.0); MEAN CORPUSCULAR VOLUME 89.6 fL (81.0-99.0); MONOCYTES % 10.7 % (2.0-8.0); NEUTROPHILS % 58.5 % (40.0-76.0); PLATELET 249 x1000/uL (130-400); RED BLOOD CELL COUNT 3.82 mill/uL (4.2-5.4); RED CELL DISTRIBUTION WIDTH 13.1 % (11.6-14.6)
[2019-12-13 13:05] LABS: CHLORIDE 114 mEq/L (98-107)
[2019-12-13] MEDS ORDERED: METHYLPREDNISOLONE SOD SUCC 125 MG/2 ML VIAL IV ONE (13:30)
[2019-12-13 13:55] LABS: BG BASE EXCESS 2.5 mmol/L (-2.0-2.0); BG CARBOXYHEMOGLOBIN 0.3 % (0.5-1.5); BG DEOXYHEMOGLOBIN 6.2 % (0.0-5.0); BG FRACTION INSPIRED OXYGEN 21; BG HCO3 ACT 26.5 mmol/L (22.0-26.0); BG METHEMOGLOBIN 0.2 % (0.0-1.5); BG OXYGEN SATURATION 93.8 % (92.0-98.5); BG OXYHEMOGLOBIN 93.3 % (94.0-97.0); BG PCO2 38.4 mmHg (35.0-45.0); BG PH 7.456 (7.350-7.450); BG PO2 67.1 mmHg (75.0-100.0); BG SAMPLE SITE RIGHT BRACHIAL; BG TOTAL HEMOGLOBIN 11.2 g/dL (12.0-18.0); BG VENT MODE ROOM AIR
[2019-12-13] MEDS ORDERED: ALBUTEROL (0.083%) 2.5MG/3ML NEB ONE (14:59)
[2019-12-13] MEDS ORDERED: IPRATROPIUM BROMIDE (0.02%) 0.5MG/2.5ML NEB ONE (15:00)
[2019-12-13 15:54] VITALS: BP 140/72
== END 2019-12-13 15:56 | disposition left against medical advice (07) ==
LOC: ER 12:15
DX: J44.1 Chronic obstructive pulmonary disease with (acute) exacerbation (principal); J45.901 Unspecified asthma with (acute) exacerbation; R00.0 Tachycardia, unspecified; Z88.0 Allergy status to penicillin; Z79.899 Other long term (current) drug therapy
CPT/HCPCS: 36415; 36600; 71045; 80053; 82375; 82805; 83880; 84484; 85025; 93005; 96374; 99285; J2930; Z7610

== ENCOUNTER 2020-01-14 05:02 | Emergency (ER) | payer MEDICAID ==
[~2020-01-14] VITALS: Ht 170.2 cm; Wt 68.0 kg
[2020-01-14] MEDS ORDERED: SODIUM CHLORIDE 0.9% 1,000 ML IV ONE (06:16)
[2020-01-14] MEDS ORDERED: LORAZEPAM 2MG/ML CPJ IV ONE ×2 (06:30→08:15)
[2020-01-14 06:31] LABS: BASOPHILS % 0.9 % (0.0-2.0); EOSINOPHILS % 2.2 % (0.0-5.0); HEMATOCRIT. 32.5 % (36.0-48.0); HEMOGLOBIN. 10.6 g/dL (12.0-16.0); LYMPHOCYTES % 24.7 % (20.0-50.0); MEAN CORPUSCULAR VOLUME 91.8 fL (81.0-99.0); MEAN PLATELET VOLUME 8.4 fl (7.4-10.4); MONOCYTES % 9.1 % (2.0-8.0); NEUTROPHILS % 63.1 % (40.0-76.0); PLATELET 194 x1000/uL (130-400); RED BLOOD CELL COUNT 3.54 mill/uL (4.2-5.4); RED CELL DISTRIBUTION WIDTH 14.9 % (11.6-14.6)
[2020-01-14 06:32] LABS: CHLORIDE 116 mEq/L (98-107)
[2020-01-14 06:38] LABS: INR 1.1; PROTHROMBIN TIME 11.3 sec (9.6-11.0)
[2020-01-14 06:42] LABS: ETHANOL BLOOD < 10 mg/dL
[2020-01-14] MEDS ORDERED: LORAZEPAM 1MG TABLET PO ONE (08:00)
[2020-01-14] MEDS ORDERED: ASPIRIN 81MG TABLET PO ONE (09:15)
[2020-01-14] MEDS ORDERED: FUROSEMIDE 40MG/4ML VIAL IV ONE (09:15)
[2020-01-14] MEDS ORDERED: LEVOFLOXACIN 750MG PREMIX 150 ML IV ONE (09:15)
[2020-01-14 12:17] LABS: CLARITY URINE CLEAR (CLEAR); COLOR URINE YELLOW (YELLOW); KETONES URINE NEGATIVE (NEGATIVE); LEUKOCYTE ESTERASE URINE NEGATIVE (NEGATIVE); NITRITE URINE NEGATIVE (NEGATIVE); OCCULT BLOOD URINE NEGATIVE (NEGATIVE); PROTEIN URINE NEGATIVE (NEGATIVE); SPECIFIC GRAVITY URINE 1.011 (1.005-1.030); UROBILINOGEN URINE 0.2 E.U./dL (0.2-1.0)
[2020-01-14 12:31] LABS: *BENZODIAZEPINES SCREEN URINE NEGATIVE (NEGATIVE); *COCAINE SCREEN URINE NEGATIVE (NEGATIVE); CANNABINOID URINE SCREEN NEGATIVE (NEGATIVE); METHADONE URINE SCREEN NEGATIVE (NEGATIVE); OPIATES URINE SCREEN NEGATIVE (NEGATIVE)
[2020-01-14 12:32] LABS: *AMPHETAMINES SCREEN URINE PRESUMTIVE POSITIVE (NEGATIVE); *BARBITURATES SCREEN URINE NEGATIVE (NEGATIVE); PHENCYCLIDINE URINE SCREEN NEGATIVE (NEGATIVE)
[2020-01-14] MEDS ORDERED: DILTIAZEM HCL 5MG/ML 5ML VIAL IV PRN ×2 (13:15→15:00)
[2020-01-14 15:05] VITALS: BP 154/110
[2020-01-14] MEDS ORDERED: DILTIAZEM HCL 60MG TABLET PO SCH (22:00)
== END 2020-01-14 16:12 | disposition left against medical advice (07) ==
LOC: ER 05:02 → EDBEDREQ 11:39 → EDBEDREQTM 11:39 → ENRESERV 14:58 → CANRESERV 14:58 → ER 16:12 → CANBEDREQ 20:09
DX: I11.0 Hypertensive heart disease with heart failure (principal); I50.9 Heart failure, unspecified; T43.621A Poisoning by amphetamines, accidental (unintentional), initial encounter; J44.9 Chronic obstructive pulmonary disease, unspecified; Z88.0 Allergy status to penicillin; Z79.899 Other long term (current) drug therapy
CPT/HCPCS: 36415; 71045; 80053; 80305; 80320; 81003; 83880; 84484; 85025; 85610; 87040; 93005; 96365; 96375; 96376; 99291; J1940; J1956; J2060; J3490; J7030; Z7610; G0480

== ENCOUNTER 2020-01-15 01:44 | Emergency (ER) | payer MEDICAID ==
[~2020-01-15] VITALS: Ht 170.2 cm; Wt 72.0 kg
[2020-01-15] MEDS ORDERED: DILTIAZEM HCL 5MG/ML 5ML VIAL IV ONE (02:45)
[2020-01-15 02:57] LABS: BASOPHILS % 0.7 % (0.0-2.0); EOSINOPHILS % 1.8 % (0.0-5.0); HEMATOCRIT. 37.2 % (36.0-48.0); HEMOGLOBIN. 11.9 g/dL (12.0-16.0); LYMPHOCYTES % 17.7 % (20.0-50.0); MEAN CORPUSCULAR HEMOGLOBIN 29.4 pg (28.0-32.0); MEAN CORPUSCULAR VOLUME 91.8 fL (81.0-99.0); MONOCYTES % 9.5 % (2.0-8.0); NEUTROPHILS % 70.3 % (40.0-76.0); PLATELET 202 x1000/uL (130-400); RED BLOOD CELL COUNT 4.05 mill/uL (4.2-5.4); RED CELL DISTRIBUTION WIDTH 15.2 % (11.6-14.6)
[2020-01-15 03:02] LABS: CHLORIDE 114 mEq/L (98-107)
[2020-01-15 03:07] LABS: ETHANOL BLOOD < 10 mg/dL
[2020-01-15 03:50] VITALS: BP 124/74
[2020-01-15] MEDS ORDERED: DILTIAZEM HCL 5MG/ML 5ML VIAL IV PRN (11:00)
[2020-01-15] MEDS ORDERED: DILTIAZEM HCL 60MG TABLET PO SCH (15:00)
== END 2020-01-15 05:21 | disposition left against medical advice (07) ==
LOC: ER 01:44 → CANBEDREQ 07:27
DX: I50.9 Heart failure, unspecified (principal); I48.91 Unspecified atrial fibrillation; J44.9 Chronic obstructive pulmonary disease, unspecified; E11.9 Type 2 diabetes mellitus without complications; E78.00 Pure hypercholesterolemia, unspecified; I25.2 Old myocardial infarction; I25.10 Atherosclerotic heart disease of native coronary artery without angina pectoris; Z88.0 Allergy status to penicillin; Z86.73 Personal history of transient ischemic attack (TIA), and cerebral infarction without residual deficits; Z85.528 Personal history of other malignant neoplasm of kidney
CPT/HCPCS: 36415; 71045; 80053; 80320; 83880; 84484; 85025; 93005; 96374; 99285; J3490; G0480

== ENCOUNTER 2020-01-15 15:29 | Inpatient (IN) | payer MEDICAID ==
[~2020-01-15] VITALS: Ht 170.2 cm; Wt 79.1 kg
[2020-01-15] MEDS ORDERED: DILTIAZEM HCL 5MG/ML 5ML VIAL IV ONE (16:15)
[2020-01-15] MEDS ORDERED: DILTIAZEM HCL 60MG TABLET PO ONE (16:15)
[2020-01-15 16:30] LABS: BASOPHILS % 0.6 % (0.0-2.0); EOSINOPHILS % 1.4 % (0.0-5.0); HEMATOCRIT. 35.6 % (36.0-48.0); HEMOGLOBIN. 11.5 g/dL (12.0-16.0); LYMPHOCYTES % 21.7 % (20.0-50.0); MEAN CORPUSCULAR HEMOGLOBIN 29.8 pg (28.0-32.0); MEAN CORPUSCULAR VOLUME 92.5 fL (81.0-99.0); MEAN PLATELET VOLUME 8.8 fl (7.4-10.4); MONOCYTES % 9.7 % (2.0-8.0); NEUTROPHILS % 66.6 % (40.0-76.0); PLATELET 185 x1000/uL (130-400); RED BLOOD CELL COUNT 3.85 mill/uL (4.2-5.4)
[2020-01-15 16:31] LABS: CHLORIDE 114 mEq/L (98-107)
[2020-01-15] MEDS ORDERED: IPRATROPIUM BROMIDE (0.02%) 0.5MG/2.5ML NEB HHN STA (16:42)
[2020-01-15] MEDS ORDERED: ALBUTEROL (0.083%) 2.5MG/3ML NEB HHN STA (16:42)
[2020-01-15] MEDS ORDERED: ACETAMINOPHEN 325MG TABLET PO PRN (19:00)
[2020-01-15] MEDS ORDERED: IPRATROPIUM BROMIDE (0.02%) 0.5MG/2.5ML NEB HHN PRN (19:00)
[2020-01-15] MEDS ORDERED: DILTIAZEM HCL 125 MG in DEXT 5% WATER 100 ML IV PRN ×2 (19:00→23:00)
[2020-01-15] MEDS ORDERED: ONDANSETRON HCL 4MG/2ML INJ IV PRN (19:00)
[2020-01-15] MEDS ORDERED: FUROSEMIDE 20MG/2ML VIAL IVP NR (19:30)
[2020-01-15 20:08] LABS: *AMPHETAMINES SCREEN URINE PRESUMTIVE POSITIVE (NEGATIVE); *BARBITURATES SCREEN URINE NEGATIVE (NEGATIVE); *BENZODIAZEPINES SCREEN URINE NEGATIVE (NEGATIVE); *COCAINE SCREEN URINE NEGATIVE (NEGATIVE); METHADONE URINE SCREEN NEGATIVE (NEGATIVE); OPIATES URINE SCREEN NEGATIVE (NEGATIVE)
[2020-01-15 20:09] LABS: CANNABINOID URINE SCREEN NEGATIVE (NEGATIVE); PHENCYCLIDINE URINE SCREEN NEGATIVE (NEGATIVE)
[2020-01-15] MEDS: ENOXAPARIN 80MG/0.8ML SYR SUBCUT SCH (21:14)
[2020-01-15 22:11] VITALS: BP 142/116
[2020-01-15] MEDS: FUROSEMIDE 40MG/4ML VIAL IVP SCH (22:50)
[2020-01-15] MEDS ORDERED: CLONIDINE 0.1MG TABLET PO PRN (23:30)
[2020-01-16] VITALS (13 sets, daily range): BP systolic 110–163; BP diastolic 67–105
[2020-01-16] MEDS: ZOLPIDEM TARTRATE 5MG TABLET PO PRN ×2 (01:00→20:45)
[2020-01-16] MEDS: HYDROCODONE/ACETAMINOPHEN 5/325MG TABLET PO PRN ×3 (04:06→18:09)
[2020-01-16] MEDS ORDERED: ALBUMIN HUMAN 12.5GM/50ML (25%) IV SCH (07:00)
[2020-01-16 07:58] LABS: INR 1.2; PROTHROMBIN TIME 12.3 sec (9.6-11.0)
[2020-01-16] MEDS: ENOXAPARIN 80MG/0.8ML SYR SUBCUT SCH ×2 (08:55→20:40)
[2020-01-16] MEDS: FUROSEMIDE 40MG/4ML VIAL IVP SCH ×2 (08:57→17:06)
[2020-01-16] MEDS ORDERED: POTASSIUM CHLORIDE 20MEQ TABLET SR PO NR (17:00)
[2020-01-16] MEDS: DILTIAZEM HCL 60MG TABLET PO SCH ×2 (17:06→23:27)
[2020-01-16] MEDS: IPRATROPIUM BROMIDE (0.02%) 0.5MG/2.5ML NEB HHN SCH ×2 (18:24→21:20)
[2020-01-16] MEDS: QUETIAPINE FUMARATE 50MG TABLET PO SCH (20:39)
[2020-01-17] VITALS (11 sets, daily range): BP systolic 100–138; BP diastolic 58–89
[2020-01-17] MEDS: IPRATROPIUM BROMIDE (0.02%) 0.5MG/2.5ML NEB HHN SCH ×4 (01:30→20:52)
[2020-01-17] MEDS: DILTIAZEM HCL 60MG TABLET PO SCH ×4 (05:31→23:54)
[2020-01-17 07:07] LABS: HIV SCREEN 4G Non Reactive (Non Reactive)
[2020-01-17] MEDS: POTASSIUM CHLORIDE 20MEQ TABLET SR PO SCH (09:06)
[2020-01-17] MEDS: ENOXAPARIN 80MG/0.8ML SYR SUBCUT SCH ×2 (09:06→20:05)
[2020-01-17] MEDS: FUROSEMIDE 40MG/4ML VIAL IVP SCH ×2 (09:06→17:28)
[2020-01-17] MEDS ORDERED: DILTIAZEM HCL 125 MG in DEXT 5% WATER 100 ML IV PRN (09:15)
[2020-01-17] MEDS ORDERED: DILTIAZEM HCL 5MG/ML 5ML VIAL IV PRN (13:45)
[2020-01-17] MEDS: HYDROCODONE/ACETAMINOPHEN 5/325MG TABLET PO PRN ×2 (14:06→20:09)
[2020-01-17] MEDS: AMIODARONE HCL 200 MG TABLET PO SCH (17:28)
[2020-01-17] MEDS: QUETIAPINE FUMARATE 50MG TABLET PO SCH (20:05)
[2020-01-18] VITALS (18 sets, daily range): BP systolic 93–140; BP diastolic 52–93
[2020-01-18] MEDS: IPRATROPIUM BROMIDE (0.02%) 0.5MG/2.5ML NEB HHN SCH ×4 (02:58→21:47)
[2020-01-18] MEDS: DILTIAZEM HCL 60MG TABLET PO SCH ×3 (05:50→17:56)
[2020-01-18 07:58] LABS: BASOPHILS % 0.7 % (0.0-2.0); EOSINOPHILS % 2.7 % (0.0-5.0); HEMATOCRIT. 36.2 % (36.0-48.0); HEMOGLOBIN. 12.1 g/dL (12.0-16.0); LYMPHOCYTES % 34.9 % (20.0-50.0); MEAN CORPUSCULAR HEMOGLOBIN 29.9 pg (28.0-32.0); MEAN CORPUSCULAR VOLUME 89.3 fL (81.0-99.0); MEAN PLATELET VOLUME 8.3 fl (7.4-10.4); NEUTROPHILS % 50.7 % (40.0-76.0); PLATELET 211 x1000/uL (130-400); RED BLOOD CELL COUNT 4.05 mill/uL (4.2-5.4); RED CELL DISTRIBUTION WIDTH 14.3 % (11.6-14.6)
[2020-01-18] MEDS: FUROSEMIDE 40MG/4ML VIAL IVP SCH ×2 (08:35→16:46)
[2020-01-18] MEDS: ENOXAPARIN 80MG/0.8ML SYR SUBCUT SCH ×2 (08:35→21:21)
[2020-01-18] MEDS: POTASSIUM CHLORIDE 20MEQ TABLET SR PO SCH (08:36)
[2020-01-18] MEDS: AMIODARONE HCL 200 MG TABLET PO SCH ×3 (08:36→16:46)
[2020-01-18] MEDS: CARVEDILOL 3.125 MG TABLET PO SCH ×2 (13:15→21:22)
[2020-01-18] MEDS: QUETIAPINE FUMARATE 50MG TABLET PO SCH (21:21)
[2020-01-19] VITALS (13 sets, daily range): BP systolic 101–132; BP diastolic 61–117
[2020-01-19] MEDS: IPRATROPIUM BROMIDE (0.02%) 0.5MG/2.5ML NEB HHN SCH ×4 (01:32→21:55)
[2020-01-19 06:26] LABS: BASOPHILS % 0.7 % (0.0-2.0); EOSINOPHILS % 2.4 % (0.0-5.0); HEMATOCRIT. 37.1 % (36.0-48.0); HEMOGLOBIN. 12.4 g/dL (12.0-16.0); LYMPHOCYTES % 30.1 % (20.0-50.0); MEAN CORPUSCULAR HEMOGLOBIN 29.8 pg (28.0-32.0); MEAN CORPUSCULAR VOLUME 89.1 fL (81.0-99.0); MEAN PLATELET VOLUME 8.3 fl (7.4-10.4); MONOCYTES % 10.2 % (2.0-8.0); NEUTROPHILS % 56.6 % (40.0-76.0); PLATELET 218 x1000/uL (130-400); RED BLOOD CELL COUNT 4.17 mill/uL (4.2-5.4)
[2020-01-19] MEDS: DILTIAZEM HCL 60MG TABLET PO SCH ×2 (06:26)
[2020-01-19] MEDS: FUROSEMIDE 40MG/4ML VIAL IVP SCH ×2 (08:25→17:57)
[2020-01-19] MEDS: AMIODARONE HCL 200 MG TABLET PO SCH ×2 (08:26→17:59)
[2020-01-19] MEDS: CARVEDILOL 3.125 MG TABLET PO SCH ×2 (09:00→20:54)
[2020-01-19] MEDS: ENOXAPARIN 80MG/0.8ML SYR SUBCUT SCH ×2 (10:46→20:54)
[2020-01-19] MEDS: POTASSIUM CHLORIDE 20MEQ TABLET SR PO SCH (10:46)
[2020-01-19] MEDS: HYDROCODONE/ACETAMINOPHEN 5/325MG TABLET PO PRN (13:00)
[2020-01-19] MEDS: DILTIAZEM HCL 300MG CAPSULE SR 24HR PO SCH (14:55)
[2020-01-19] MEDS: QUETIAPINE FUMARATE 50MG TABLET PO SCH (20:54)
[2020-01-20] VITALS (8 sets, daily range): BP systolic 100–142; BP diastolic 58–84
[2020-01-20] MEDS: IPRATROPIUM BROMIDE (0.02%) 0.5MG/2.5ML NEB HHN SCH ×3 (02:30→11:24)
[2020-01-20] MEDS: FUROSEMIDE 40MG/4ML VIAL IVP SCH (06:24)
[2020-01-20] MEDS: AMIODARONE HCL 200 MG TABLET PO SCH (06:24)
[2020-01-20] MEDS: DILTIAZEM HCL 300MG CAPSULE SR 24HR PO SCH (09:25)
[2020-01-20] MEDS: ENOXAPARIN 80MG/0.8ML SYR SUBCUT SCH (09:25)
[2020-01-20] MEDS: POTASSIUM CHLORIDE 20MEQ TABLET SR PO SCH (09:25)
[2020-01-20] MEDS: CARVEDILOL 3.125 MG TABLET PO SCH (09:26)
[2020-01-20] MEDS ORDERED: DILT300C35 PO (09:27)
[2020-01-20] MEDS ORDERED: COR3 PO (09:27)
[2020-01-20] MEDS ORDERED: APIX5TAB MT (09:27)
[2020-01-20] MEDS ORDERED: AMI2 PO (09:27)
[2020-01-20] MEDS ORDERED: IPRA3AMP9 NEB (09:40)
[2020-01-20] MEDS ORDERED: APIXABAN 5 MG TABLET PO SCH (17:20)
== END 2020-01-20 12:54 | disposition home or self-care (01) | DRG 194 ==
LOC: ER 15:33 → EDBEDREQ 17:31 → EDBEDREQTM 17:31 → EDBEDREQSVC 20:26 → EDBEDREQTM 20:26 → ENRESERV 20:44 → 3WST 21:46
PROVIDERS: ADMIT Internal Medicine; ATTEND Internal Medicine
DX: I11.0 Hypertensive heart disease with heart failure (principal); J96.00 Acute respiratory failure, unspecified whether with hypoxia or hypercapnia; I48.20 Chronic atrial fibrillation, unspecified; I50.33 Acute on chronic diastolic (congestive) heart failure; J68.0 Bronchitis and pneumonitis due to chemicals, gases, fumes and vapors; E11.9 Type 2 diabetes mellitus without complications; B19.20 Unspecified viral hepatitis C without hepatic coma; E44.1 Mild protein-calorie malnutrition; E87.8 Other disorders of electrolyte and fluid balance, not elsewhere classified; E78.00 Pure hypercholesterolemia, unspecified; F17.210 Nicotine dependence, cigarettes, uncomplicated; F20.9 Schizophrenia, unspecified; I42.9 Cardiomyopathy, unspecified; F15.10 Other stimulant abuse, uncomplicated; J44.9 Chronic obstructive pulmonary disease, unspecified; Z68.27 Body mass index [BMI] 27.0-27.9, adult; Z88.0 Allergy status to penicillin; Z79.899 Other long term (current) drug therapy; I25.2 Old myocardial infarction; Z91.19 Patient's noncompliance with other medical treatment and regimen; Z71.6 Tobacco abuse counseling; Z71.51 Drug abuse counseling and surveillance of drug abuser
CPT/HCPCS: 36415; 71045; 80048; 80053; 80305; 83880; 84484; 85025; 87389; 93005; 93306; 94640; 97116; 97162; 99285; J1650; J1940; J3490; J7060; P9047

== ENCOUNTER 2020-04-08 18:21 | Emergency (ER) | payer MEDICAID ==
[~2020-04-08] VITALS: Ht 170.2 cm; Wt 81.0 kg
[~2020-04-08 18:21] MED LIST changes: +AMI2 PO; +COR3 PO; -DILT180C66 PO; +DILT300C35 PO; +IPRA3AMP9 NEB
[2020-04-08] MEDS ORDERED: DIPHENHYDRAMINE 50MG/ML VIAL IV ONE (19:30)
[2020-04-08 19:44] LABS: BASOPHILS % 0.5 % (0.0-2.0); EOSINOPHILS % 3.4 % (0.0-5.0); HEMATOCRIT. 40.1 % (36.0-48.0); HEMOGLOBIN. 13.3 g/dL (12.0-16.0); LYMPHOCYTES % 29.6 % (20.0-50.0); MEAN CORPUSCULAR HEMOGLOBIN 29.5 pg (28.0-32.0); MEAN CORPUSCULAR VOLUME 88.8 fL (81.0-99.0); MEAN PLATELET VOLUME 10.1 fl (7.4-10.4); MONOCYTES % 12.1 % (2.0-8.0); NEUTROPHILS % 54.4 % (40.0-76.0); PLATELET 138 x1000/uL (130-400); RED BLOOD CELL COUNT 4.51 mill/uL (4.2-5.4); RED CELL DISTRIBUTION WIDTH 13.5 % (11.6-14.6)
[2020-04-08 19:50] LABS: CHLORIDE 111 mEq/L (98-107)
[2020-04-08 19:57] LABS: ETHANOL BLOOD < 10 mg/dL
[2020-04-08 22:30] VITALS: BP 127/67
== END 2020-04-08 22:59 | disposition home or self-care (01) ==
LOC: ER 18:21
DX: L29.9 Pruritus, unspecified (principal); I48.91 Unspecified atrial fibrillation; J45.909 Unspecified asthma, uncomplicated; I50.9 Heart failure, unspecified; I25.10 Atherosclerotic heart disease of native coronary artery without angina pectoris; I25.2 Old myocardial infarction; J44.9 Chronic obstructive pulmonary disease, unspecified; E11.9 Type 2 diabetes mellitus without complications; E78.00 Pure hypercholesterolemia, unspecified; F17.200 Nicotine dependence, unspecified, uncomplicated; Z71.6 Tobacco abuse counseling; Z88.0 Allergy status to penicillin; Z86.73 Personal history of transient ischemic attack (TIA), and cerebral infarction without residual deficits
CPT/HCPCS: 36415; 80053; 80320; 83880; 84484; 85025; 93005; 96374; 99284; 99406; J1200; G0480

== ENCOUNTER 2020-08-01 14:38 | Emergency (ER) | payer MEDICARE, MEDICAID ==
[~2020-08-01] VITALS: Ht 167.6 cm; Wt 91.0 kg
[2020-08-01] MEDS ORDERED: ONDANSETRON HCL 4MG/2ML INJ IV STA (15:11)
[2020-08-01] MEDS ORDERED: MORPHINE SULFATE 4 MG/ML CPJ (NOT FOR IM USE) IV STA (15:11)
[2020-08-01] MEDS ORDERED: SODIUM CHLORIDE 0.9% 1,000 ML IV ONE (15:15)
[2020-08-01 15:40] LABS: BASOPHILS % 1.1 % (0.0-2.0); EOSINOPHILS % 1.8 % (0.0-5.0); HEMATOCRIT. 39.5 % (36.0-48.0); LYMPHOCYTES % 25.7 % (20.0-50.0); MEAN CORPUSCULAR HEMOGLOBIN 29.7 pg (28.0-32.0); MEAN CORPUSCULAR VOLUME 90.3 fL (81.0-99.0); MEAN PLATELET VOLUME 9.2 fl (7.4-10.4); MONOCYTES % 10.1 % (2.0-8.0); NEUTROPHILS % 61.3 % (40.0-76.0); PLATELET 180 x1000/uL (130-400); RED BLOOD CELL COUNT 4.37 mill/uL (4.2-5.4); RED CELL DISTRIBUTION WIDTH 12.8 % (11.6-14.6)
[2020-08-01 15:43] LABS: CHLORIDE 108 mEq/L (98-107)
[2020-08-01 15:46] LABS: ETHANOL BLOOD < 10 mg/dL
[2020-08-01 15:48] LABS: INR 1.1; PARTIAL THROMBOPLASTIN TIME 25.9 sec (23.4-31.0); PROTHROMBIN TIME 11.3 sec (9.6-11.0)
[2020-08-01 17:43] LABS: CLARITY URINE CLEAR (CLEAR); COLOR URINE YELLOW (YELLOW); KETONES URINE NEGATIVE (NEGATIVE); LEUKOCYTE ESTERASE URINE NEGATIVE (NEGATIVE); NITRITE URINE NEGATIVE (NEGATIVE); OCCULT BLOOD URINE NEGATIVE (NEGATIVE); PROTEIN URINE 2+ (NEGATIVE); SPECIFIC GRAVITY URINE 1.021 (1.005-1.030); UROBILINOGEN URINE 0.2 E.U./dL (0.2-1.0)
[2020-08-01 18:21] LABS: *COCAINE SCREEN URINE PRESUMTIVE POSITIVE (NEGATIVE); METHADONE URINE SCREEN NEGATIVE (NEGATIVE); OPIATES URINE SCREEN PRESUMTIVE POSITIVE (NEGATIVE)
[2020-08-01 18:22] LABS: *AMPHETAMINES SCREEN URINE PRESUMTIVE POSITIVE (NEGATIVE); *BARBITURATES SCREEN URINE NEGATIVE (NEGATIVE); *BENZODIAZEPINES SCREEN URINE NEGATIVE (NEGATIVE); CANNABINOID URINE SCREEN NEGATIVE (NEGATIVE); PHENCYCLIDINE URINE SCREEN NEGATIVE (NEGATIVE)
[2020-08-01] MEDS ORDERED: IPRATROPIUM/ALBUTEROL 0.5-3(2.5)MG/3ML NEB HHN PRN (19:15)
[2020-08-01] MEDS ORDERED: ACETAMINOPHEN 325MG TABLET PO PRN (19:15)
[2020-08-01] MEDS ORDERED: FUROSEMIDE 40MG/4ML VIAL IV SCH (19:15)
[2020-08-01] MEDS ORDERED: CLONIDINE 0.1MG TABLET PO PRN (19:15)
[2020-08-01] MEDS ORDERED: DIPHENHYDRAMINE 50MG/ML VIAL IV PRN (19:15)
[2020-08-01 21:16] VITALS: BP 159/96
== END 2020-08-01 21:19 | disposition home or self-care (01) ==
LOC: ER 14:57 → EDBEDREQ 18:16 → ER 21:19 → CANBEDREQ 08-02 12:55
DX: R55 Syncope and collapse (principal); S00.83XA Contusion of other part of head, initial encounter; S80.12XA Contusion of left lower leg, initial encounter; S80.11XA Contusion of right lower leg, initial encounter; R58 Hemorrhage, not elsewhere classified; I48.20 Chronic atrial fibrillation, unspecified; F19.10 Other psychoactive substance abuse, uncomplicated; J45.909 Unspecified asthma, uncomplicated; J44.9 Chronic obstructive pulmonary disease, unspecified; I50.9 Heart failure, unspecified; I25.10 Atherosclerotic heart disease of native coronary artery without angina pectoris; E11.9 Type 2 diabetes mellitus without complications; E78.00 Pure hypercholesterolemia, unspecified; I25.2 Old myocardial infarction; W01.0XXA Fall on same level from slipping, tripping and stumbling without subsequent striking against object, initial encounter; Y93.9 Activity, unspecified; Y92.89 Other specified places as the place of occurrence of the external cause; Z88.0 Allergy status to penicillin; Z86.73 Personal history of transient ischemic attack (TIA), and cerebral infarction without residual deficits
CPT/HCPCS: 36415; 70450; 70486; 71045; 73521; 73560; 80053; 80305; 80320; 81003; 83880; 84484; 85025; 85610; 85730; 86850; 86900; 86901; 87086; 93005; 93970; 96361; 96374; 96375; 99285; J2270; J2405; J7030; Z7610; A4315; G0480

== ENCOUNTER 2020-09-25 13:02 | Emergency (ER) | payer MEDICARE, MEDICAID ==
[~2020-09-25] VITALS: Ht 177.8 cm; Wt 114.0 kg
[~2020-09-25 13:02] MED LIST changes: -METH-612 PO; +METH-774 PO
[2020-09-25] MEDS ORDERED: SODIUM CHLORIDE 0.9% 500 ML IV ONE (13:15)
[2020-09-25 13:57] LABS: BASOPHILS % 0.7 % (0.0-2.0); EOSINOPHILS % 2.2 % (0.0-5.0); HEMATOCRIT. 34.9 % (36.0-48.0); HEMOGLOBIN. 11.7 g/dL (12.0-16.0); LYMPHOCYTES % 30.5 % (20.0-50.0); MEAN CORPUSCULAR HEMOGLOBIN 29.9 pg (28.0-32.0); MEAN CORPUSCULAR VOLUME 89.5 fL (81.0-99.0); MEAN PLATELET VOLUME 9.7 fl (7.4-10.4); MONOCYTES % 10.3 % (2.0-8.0); NEUTROPHILS % 56.3 % (40.0-76.0); PLATELET 146 x1000/uL (130-400); RED CELL DISTRIBUTION WIDTH 12.6 % (11.6-14.6)
[2020-09-25 14:05] LABS: CLARITY URINE CLEAR (CLEAR); COLOR URINE YELLOW (YELLOW); KETONES URINE NEGATIVE (NEGATIVE); LEUKOCYTE ESTERASE URINE NEGATIVE (NEGATIVE); NITRITE URINE NEGATIVE (NEGATIVE); OCCULT BLOOD URINE NEGATIVE (NEGATIVE); PROTEIN URINE 1+ (NEGATIVE); UROBILINOGEN URINE 0.2 E.U./dL (0.2-1.0)
[2020-09-25 14:07] LABS: CHLORIDE 110 mEq/L (98-107)
[2020-09-25 14:11] LABS: ETHANOL BLOOD < 10 mg/dL
[2020-09-25 14:36] LABS: *AMPHETAMINES SCREEN URINE PRESUMTIVE POSITIVE (NEGATIVE); CANNABINOID URINE SCREEN NEGATIVE (NEGATIVE); OPIATES URINE SCREEN NEGATIVE (NEGATIVE); PHENCYCLIDINE URINE SCREEN NEGATIVE (NEGATIVE)
[2020-09-25 14:37] LABS: *BARBITURATES SCREEN URINE NEGATIVE (NEGATIVE); *BENZODIAZEPINES SCREEN URINE NEGATIVE (NEGATIVE); *COCAINE SCREEN URINE NEGATIVE (NEGATIVE); METHADONE URINE SCREEN NEGATIVE (NEGATIVE)
[2020-09-25] MEDS ORDERED: DOCUSATE SODIUM 100MG CAPSULE PO PRN (16:30)
[2020-09-25] MEDS ORDERED: HYDROCODONE/ACETAMINOPHEN 5/325MG TABLET PO PRN (16:30)
[2020-09-25] MEDS ORDERED: IPRATROPIUM/ALBUTEROL 0.5-3(2.5)MG/3ML NEB HHN PRN (16:30)
[2020-09-25] MEDS ORDERED: ACETAMINOPHEN 325MG TABLET PO PRN ×2 (16:30)
[2020-09-25] MEDS ORDERED: ONDANSETRON HCL 4MG/2ML INJ IV PRN (16:30)
[2020-09-25] MEDS ORDERED: CLONIDINE 0.1MG TABLET PO PRN (16:30)
[2020-09-25] MEDS ORDERED: LORAZEPAM 0.5MG TABLET PO PRN (16:30)
[2020-09-25 22:11] VITALS: BP 141/89
== END 2020-09-25 22:13 | disposition left against medical advice (07) ==
LOC: ER 13:02 → CANRESERV 20:05 → ENRESERV 20:05 → ER 21:04 → CANBEDREQ 21:38 → ER 22:13
DX: R41.82 Altered mental status, unspecified (principal); F15.10 Other stimulant abuse, uncomplicated; I11.0 Hypertensive heart disease with heart failure; I50.9 Heart failure, unspecified; I25.2 Old myocardial infarction; I48.91 Unspecified atrial fibrillation; E78.00 Pure hypercholesterolemia, unspecified; J44.1 Chronic obstructive pulmonary disease with (acute) exacerbation; Z88.0 Allergy status to penicillin; Z79.899 Other long term (current) drug therapy; Z86.73 Personal history of transient ischemic attack (TIA), and cerebral infarction without residual deficits; Z98.890 Other specified postprocedural states
CPT/HCPCS: 36415; 70450; 71045; 80053; 80305; 80307; 80320; 80329; 81003; 82962; 83880; 84443; 84484; 85025; 93005; 96360; 96361; 99285; J7040; G0480

== ENCOUNTER 2020-12-11 05:07 | Emergency (ER) | payer MEDICARE, MEDICAID ==
[~2020-12-11] VITALS: Ht 167.6 cm; Wt 84.0 kg
[~2020-12-11 05:07] MED LIST changes: -ABIL10 PO; -AMI2 PO; +ASPI-1406 PO; +COR12 PO; -COR3 PO; -DILT300C35 PO; -FURO40TA5 MT; +FURO40TA5 PO; -IPRA3AMP9 NEB; +LOSA50TA3 PO; -METH-774 PO; -POTA10CA42 MT; -QUET100T PO; +QUET300T19 PO; +SPIR25TA PO
[2020-12-11] MEDS ORDERED: DIPHENHYDRAMINE 25MG CAPSULE PO ONE (05:30)
[2020-12-11 05:32] VITALS: BP 176/77
[2020-12-11] MEDS ORDERED: DIPH25CA83 MT (05:37)
== END 2020-12-11 06:03 | disposition home or self-care (01) ==
LOC: ER 05:07
DX: F15.10 Other stimulant abuse, uncomplicated (principal); I25.2 Old myocardial infarction; I11.0 Hypertensive heart disease with heart failure; I50.9 Heart failure, unspecified; I10 Essential (primary) hypertension; E11.9 Type 2 diabetes mellitus without complications; E78.00 Pure hypercholesterolemia, unspecified; I48.91 Unspecified atrial fibrillation; J44.1 Chronic obstructive pulmonary disease with (acute) exacerbation; Z88.0 Allergy status to penicillin; Z79.82 Long term (current) use of aspirin; Z79.899 Other long term (current) drug therapy; Z86.73 Personal history of transient ischemic attack (TIA), and cerebral infarction without residual deficits
CPT/HCPCS: 99283; Q0163

== ENCOUNTER 2021-07-15 20:51 | Inpatient (IN) | payer MEDICARE, OTHER ==
[~2021-07-15] VITALS: Ht 172.7 cm; Wt 72.6 kg
[~2021-07-15 20:51] MED LIST changes: +DIPH25CA83 MT; -QUET300T19 PO; +QUET300T20 PO
[2021-07-15] MEDS ORDERED: MORPHINE SULFATE 4 MG/ML CPJ (NOT FOR IM USE) IV ONE (21:30)
[2021-07-15 21:49] LABS: BASOPHILS % 0.8 % (0.0-2.0); HEMATOCRIT. 37.6 % (36.0-48.0); HEMOGLOBIN. 12.4 g/dL (12.0-16.0); LYMPHOCYTES % 21.7 % (20.0-50.0); MEAN CORPUSCULAR HEMOGLOBIN 28.7 pg (28.0-32.0); MEAN CORPUSCULAR VOLUME 87.1 fL (81.0-99.0); MEAN PLATELET VOLUME 9.1 fl (7.4-10.4); MONOCYTES % 11.2 % (2.0-8.0); NEUTROPHILS % 63.3 % (40.0-76.0); PLATELET 255 x1000/uL (130-400); RED BLOOD CELL COUNT 4.31 mill/uL (4.2-5.4); RED CELL DISTRIBUTION WIDTH 12.6 % (11.6-14.6)
[2021-07-15 21:57] LABS: CHLORIDE 107 mEq/L (98-107)
[2021-07-15 22:01] LABS: ETHANOL BLOOD < 10 mg/dL
[2021-07-15] MEDS ORDERED: DIPHENHYDRAMINE 50MG/ML VIAL IV ONE (22:30)
[2021-07-15] MEDS: FUROSEMIDE 40MG/4ML VIAL IVP SCH ×2 (23:23→23:24)
[2021-07-15] MEDS: ASPIRIN 81MG TABLET PO SCH ×2 (23:23→23:24)
[2021-07-16] MEDS ORDERED: ACETAMINOPHEN 325MG TABLET PO PRN (00:30)
[2021-07-16] MEDS ORDERED: GUAIFENESIN 200MG/10ML SUGAR FREE UDC PO PRN (00:30)
[2021-07-16] MEDS ORDERED: ONDANSETRON HCL 4MG/2ML INJ IV PRN (00:30)
[2021-07-16] MEDS ORDERED: MORPHINE SULFATE 2 MG/ML CPJ (NOT FOR IM USE) IV PRN (00:30)
[2021-07-16] MEDS ORDERED: IPRATROPIUM/ALBUTEROL 0.5-3(2.5)MG/3ML NEB HHN PRN (00:30)
[2021-07-16] MEDS ORDERED: DOCUSATE SODIUM 100MG CAPSULE PO PRN (00:30)
[2021-07-16 00:31] LABS: *AMPHETAMINES SCREEN URINE PRESUMTIVE POSITIVE (NEGATIVE); *BARBITURATES SCREEN URINE NEGATIVE (NEGATIVE); *BENZODIAZEPINES SCREEN URINE NEGATIVE (NEGATIVE); *COCAINE SCREEN URINE NEGATIVE (NEGATIVE); CANNABINOID URINE SCREEN NEGATIVE (NEGATIVE); METHADONE URINE SCREEN NEGATIVE (NEGATIVE); OPIATES URINE SCREEN PRESUMTIVE POSITIVE (NEGATIVE); PHENCYCLIDINE URINE SCREEN NEGATIVE (NEGATIVE)
[2021-07-16] MEDS ORDERED: NALOXONE HCL 0.4 MG/ML 1ML VIAL IV PRN (00:45)
[2021-07-16 05:53] LABS: CREATINE KINASE 188 IU/L (26-192)
[2021-07-16] MEDS ORDERED: FUROSEMIDE 40MG/4ML VIAL IV SCH (09:00)
[2021-07-16 12:22] VITALS: BP 155/98
== END 2021-07-16 12:21 | disposition left against medical advice (07) | DRG 194 ==
LOC: ER 20:51 → MICUSO 23:05
PROVIDERS: ADMIT Hospitalist; ATTEND Hospitalist
DX: I11.0 Hypertensive heart disease with heart failure (principal); J44.1 Chronic obstructive pulmonary disease with (acute) exacerbation; I50.43 Acute on chronic combined systolic (congestive) and diastolic (congestive) heart failure; E78.00 Pure hypercholesterolemia, unspecified; F14.10 Cocaine abuse, uncomplicated; F17.200 Nicotine dependence, unspecified, uncomplicated; I25.10 Atherosclerotic heart disease of native coronary artery without angina pectoris; I48.91 Unspecified atrial fibrillation; F31.9 Bipolar disorder, unspecified; Z20.822 Contact with and (suspected) exposure to COVID-19; Z53.29 Procedure and treatment not carried out because of patient's decision for other reasons; F15.10 Other stimulant abuse, uncomplicated; E11.9 Type 2 diabetes mellitus without complications; Z79.1 Long term (current) use of non-steroidal anti-inflammatories (NSAID); Z79.899 Other long term (current) drug therapy; Z88.5 Allergy status to narcotic agent; Z88.0 Allergy status to penicillin; Z79.82 Long term (current) use of aspirin; Z82.49 Family history of ischemic heart disease and other diseases of the circulatory system; Z82.5 Family history of asthma and other chronic lower respiratory diseases; Z86.73 Personal history of transient ischemic attack (TIA), and cerebral infarction without residual deficits
CPT/HCPCS: 36415; 71045; 80053; 80305; 80320; 82550; 83880; 84484; 85025; 86850; 86900; 87426; 93005; 93970; 99291; J1200; J1940; J2270; J2405; G0480

== ENCOUNTER 2021-07-19 01:27 | Inpatient (IN) | payer MEDICARE, OTHER ==
[~2021-07-19] VITALS: Ht 162.6 cm; Wt 55.0 kg
[2021-07-19] MEDS ORDERED: ACETAMINOPHEN 325MG TABLET PO ONE (02:15)
[2021-07-19 02:32] LABS: BASOPHILS % 0.9 % (0.0-2.0); EOSINOPHILS % 3.8 % (0.0-5.0); HEMATOCRIT. 33.9 % (36.0-48.0); HEMOGLOBIN. 11.4 g/dL (12.0-16.0); LYMPHOCYTES % 29.8 % (20.0-50.0); MEAN CORPUSCULAR HEMOGLOBIN 29.2 pg (28.0-32.0); MEAN CORPUSCULAR VOLUME 86.5 fL (81.0-99.0); MEAN PLATELET VOLUME 8.7 fl (7.4-10.4); MONOCYTES % 8.5 % (2.0-8.0); PLATELET 232 x1000/uL (130-400); RED BLOOD CELL COUNT 3.92 mill/uL (4.2-5.4); RED CELL DISTRIBUTION WIDTH 12.4 % (11.6-14.6)
[2021-07-19 02:38] LABS: CHLORIDE 113 mEq/L (98-107)
[2021-07-19 02:57] LABS: CLARITY URINE CLEAR (CLEAR); COLOR URINE YELLOW (YELLOW); KETONES URINE TRACE (NEGATIVE); LEUKOCYTE ESTERASE URINE NEGATIVE (NEGATIVE); NITRITE URINE NEGATIVE (NEGATIVE); OCCULT BLOOD URINE NEGATIVE (NEGATIVE); PROTEIN URINE 2+ (NEGATIVE); SPECIFIC GRAVITY URINE 1.025 (1.005-1.030)
[2021-07-19] MEDS ORDERED: FUROSEMIDE 40MG/4ML VIAL IVP ONE (03:00)
[2021-07-19] MEDS ORDERED: ASPIRIN 325MG EC TABLET PO ONE (05:30)
[2021-07-19] MEDS ORDERED: FUROSEMIDE 40MG/4ML VIAL IVP SCH (07:15)
[2021-07-19] MEDS ORDERED: DOCUSATE SODIUM 100MG CAPSULE PO PRN (13:00)
[2021-07-19] MEDS ORDERED: CLONIDINE 0.1MG TABLET PO PRN (13:00)
[2021-07-19] MEDS ORDERED: MAGNESIUM/ALUMINUM HYDROXIDE/SIMETHICONE 30ML UDC PO PRN (13:00)
[2021-07-19] MEDS ORDERED: ONDANSETRON HCL 4MG/2ML INJ IV PRN (13:00)
[2021-07-19] MEDS ORDERED: LOSARTAN POTASSIUM 50 MG TABLET PO SCH (13:00)
[2021-07-19] MEDS ORDERED: NALOXONE HCL 0.4MG/ML VIAL IV PRN (13:00)
[2021-07-19] MEDS ORDERED: GUAIFENESIN 200MG/10ML SUGAR FREE UDC PO PRN (13:00)
[2021-07-19] MEDS ORDERED: SPIRONOLACTONE 25MG TABLET PO SCH (13:00)
[2021-07-19] MEDS ORDERED: ACETAMINOPHEN 325MG TABLET PO PRN (13:00)
[2021-07-19] MEDS ORDERED: HYDROMORPHONE HCL/PF 2MG/ML CPJ IV PRN (13:00)
[2021-07-19] MEDS ORDERED: ATORVASTATIN CALCIUM 20MG TABLET PO SCH (13:00)
[2021-07-19 13:30] VITALS: BP 136/82
[2021-07-19] MEDS ORDERED: ENOXAPARIN 40MG/0.4ML SYR SUBCUT SCH (14:00)
[2021-07-19] MEDS ORDERED: FUROSEMIDE 40MG TABLET PO SCH (17:15)
[2021-07-19] MEDS ORDERED: CARVEDILOL 12.5MG TABLET PO SCH (21:00)
[2021-07-20] MEDS ORDERED: ASPIRIN 81MG EC TABLET PO SCH (09:00)
== END 2021-07-19 13:54 | disposition left against medical advice (07) | DRG 198 ==
LOC: ER 01:27 → MICUSO 05:00 → EDBEDREQTM 05:07 → EDBEDREQ 05:07
PROVIDERS: ADMIT Hospitalist; ATTEND Hospitalist
DX: I24.9 Acute ischemic heart disease, unspecified (principal); I50.23 Acute on chronic systolic (congestive) heart failure; E11.9 Type 2 diabetes mellitus without complications; Z20.822 Contact with and (suspected) exposure to COVID-19; Z53.29 Procedure and treatment not carried out because of patient's decision for other reasons; E78.00 Pure hypercholesterolemia, unspecified; F31.9 Bipolar disorder, unspecified; I25.10 Atherosclerotic heart disease of native coronary artery without angina pectoris; I48.91 Unspecified atrial fibrillation; J44.9 Chronic obstructive pulmonary disease, unspecified; Z82.49 Family history of ischemic heart disease and other diseases of the circulatory system; Z88.0 Allergy status to penicillin; Z88.5 Allergy status to narcotic agent; Z82.5 Family history of asthma and other chronic lower respiratory diseases; Z86.73 Personal history of transient ischemic attack (TIA), and cerebral infarction without residual deficits; Z87.891 Personal history of nicotine dependence; Z71.6 Tobacco abuse counseling
CPT/HCPCS: 36415; 71045; 80053; 81003; 83880; 84484; 85025; 87426; 93005; 99285; J1940

== ENCOUNTER 2022-03-26 10:43 | Emergency (ER) | payer MEDICARE, MEDICAID ==
[~2022-03-26] VITALS: Ht 170.2 cm; Wt 83.0 kg
[~2022-03-26 10:43] MED LIST changes: +AMI2 PO; +CARV25TA47 MT; -COR12 PO; -DIPH25CA83 MT; +OMEP40CA20 MT
[2022-03-26 10:45] VITALS: BP 118/86
== END 2022-03-26 13:09 | disposition left against medical advice (07) ==
LOC: ER 11:03
DX: Z53.21 Procedure and treatment not carried out due to patient leaving prior to being seen by health care provider (principal); F41.9 Anxiety disorder, unspecified; M19.90 Unspecified osteoarthritis, unspecified site; I11.0 Hypertensive heart disease with heart failure; I50.9 Heart failure, unspecified; E78.00 Pure hypercholesterolemia, unspecified; Z88.0 Allergy status to penicillin; Z88.6 Allergy status to analgesic agent; Z99.3 Dependence on wheelchair

== ENCOUNTER 2022-04-14 22:19 | Emergency (ER) | payer MEDICARE, OTHER ==
[~2022-04-14] VITALS: Ht 170.2 cm; Wt 80.0 kg
[2022-04-14] MEDS ORDERED: ASPIRIN 81MG TABLET PO ONE (22:45)
[2022-04-14 23:09] LABS: BASOPHILS % 0.9 % (0.0-2.0); HEMATOCRIT. 42.5 % (36.0-48.0); HEMOGLOBIN. 13.8 g/dL (12.0-16.0); LYMPHOCYTES % 39.4 % (20.0-50.0); MEAN CORPUSCULAR HEMOGLOBIN 28.9 pg (28.0-32.0); MEAN CORPUSCULAR VOLUME 89.2 fL (81.0-99.0); MONOCYTES % 9.8 % (2.0-8.0); NEUTROPHILS % 47.9 % (40.0-76.0); RED BLOOD CELL COUNT 4.76 mill/uL (4.2-5.4); RED CELL DISTRIBUTION WIDTH 13.3 % (11.6-14.6)
[2022-04-14 23:16] LABS: CHLORIDE 109 mEq/L (98-107)
[2022-04-14 23:20] LABS: PLATELET 191 x1000/uL (130-400)
[2022-04-14 23:21] LABS: MEAN PLATELET VOLUME 9.7 fl (7.4-10.4)
[2022-04-15] MEDS ORDERED: FUROSEMIDE 40MG/4ML VIAL IVP NR (00:15)
[2022-04-15 00:26] LABS: CLARITY URINE CLEAR (CLEAR); COLOR URINE YELLOW (YELLOW); KETONES URINE NEGATIVE (NEGATIVE); LEUKOCYTE ESTERASE URINE 2+ (NEGATIVE); NITRITE URINE NEGATIVE (NEGATIVE); OCCULT BLOOD URINE NEGATIVE (NEGATIVE); PROTEIN URINE TRACE (NEGATIVE); UROBILINOGEN URINE 0.2 E.U./dL (0.2-1.0)
[2022-04-15] MEDS ORDERED: NITROFURANTOIN 100MG M/M CAPSULE PO NR (00:45)
[2022-04-15] MEDS ORDERED: CEPH500C2 MT (01:44)
[2022-04-15 01:59] VITALS: BP 154/93
[2022-04-15] MEDS ORDERED: NITR-87 MT (14:37)
== END 2022-04-15 02:27 | disposition home or self-care (01) ==
LOC: ER 22:19
DX: N39.0 Urinary tract infection, site not specified (principal); F41.9 Anxiety disorder, unspecified; R06.02 Shortness of breath; J04.0 Acute laryngitis; Z20.822 Contact with and (suspected) exposure to COVID-19; I48.91 Unspecified atrial fibrillation; I50.9 Heart failure, unspecified; Z79.899 Other long term (current) drug therapy
CPT/HCPCS: 36415; 71045; 80053; 81003; 83605; 83690; 83880; 84145; 84484; 85025; 87040; 87086; 87426; 87804; 93005; 96374; 99285; C9803; J1940; Z7610

== ENCOUNTER 2022-05-23 03:31 | Emergency (ER) | payer MEDICARE, OTHER ==
[~2022-05-23] VITALS: Ht 157.5 cm; Wt 73.0 kg
[~2022-05-23 03:31] MED LIST changes: -AMI2 PO; -ASPI-1406 PO; +CLIN-194 MT; +FURO-151 MT
[2022-05-23 03:52] VITALS: BP 124/82
== END 2022-05-23 08:07 | disposition left against medical advice (07) ==
LOC: ER 03:31
DX: Z53.21 Procedure and treatment not carried out due to patient leaving prior to being seen by health care provider (principal)

== ENCOUNTER 2022-11-11 03:54 | Emergency (ER) | payer MEDICARE, OTHER ==
[~2022-11-11] VITALS: Ht 167.6 cm; Wt 77.0 kg
[~2022-11-11 03:54] MED LIST changes: +LOSA-413 PO; -LOSA50TA3 PO
[2022-11-11] MEDS ORDERED: ALBUTEROL (0.083%) 2.5MG/3ML NEB HHN STA (04:37)
[2022-11-11] MEDS ORDERED: IPRATROPIUM BROMIDE (0.02%) 0.5MG/2.5ML NEB HHN STA (04:37)
[2022-11-11] MEDS ORDERED: METHYLPREDNISOLONE SOD SUCC 125 MG/2 ML VIAL IV STA (04:37)
[2022-11-11 05:10] LABS: BASOPHILS % 0.1 % (0.0-2.0); EOSINOPHILS % 1.6 % (0.0-5.0); HEMATOCRIT. 33.9 % (36.0-48.0); HEMOGLOBIN. 10.7 g/dL (12.0-16.0); LYMPHOCYTES % 23.7 % (20.0-50.0); MEAN CORPUSCULAR HEMOGLOBIN 29.8 pg (28.0-32.0); MEAN CORPUSCULAR VOLUME 94.3 fL (81.0-99.0); MEAN PLATELET VOLUME 8.2 fl (7.4-10.4); MONOCYTES % 11.3 % (2.0-8.0); NEUTROPHILS % 63.3 % (40.0-76.0); PLATELET 267 x1000/uL (130-400); RED CELL DISTRIBUTION WIDTH 16.2 % (11.6-14.6)
[2022-11-11 05:17] LABS: CHLORIDE 112 mEq/L (98-107)
[2022-11-11] MEDS ORDERED: HYDRALAZINE 20MG/ML VIAL IV ONE (06:00)
[2022-11-11] MEDS ORDERED: FUROSEMIDE 40MG/4ML VIAL IVP ONE (06:45)
[2022-11-11] MEDS ORDERED: ENALAPRIL 2.5MG/2ML VIAL 2ML IV ONE (06:45)
[2022-11-11] MEDS ORDERED: ENALAPRIL 1.25MG/ML VIAL 1ML IV NR (07:00)
[2022-11-11 07:27] VITALS: BP 124/74
== END 2022-11-11 08:59 | disposition left against medical advice (07) ==
LOC: ER 03:54 → EDBEDREQ 06:28 → EDBEDREQTM 07:14 → EDBEDREQSVC 07:14 → ER 08:59 → CMPBEDREQ 21:23
DX: R06.02 Shortness of breath (principal); I48.91 Unspecified atrial fibrillation; J44.1 Chronic obstructive pulmonary disease with (acute) exacerbation; I11.0 Hypertensive heart disease with heart failure; I50.9 Heart failure, unspecified; Z86.59 Personal history of other mental and behavioral disorders; Z88.0 Allergy status to penicillin; Z79.899 Other long term (current) drug therapy
CPT/HCPCS: 36415; 71045; 80053; 83880; 84484; 85025; 93005; 94640; 96374; 96375; 99285; J0360; J1940; J2930; Z7610; J3490

== ENCOUNTER 2022-12-12 03:44 | Inpatient (IN) | payer MEDICARE, MEDICAID ==
[~2022-12-12] VITALS: Ht 170.2 cm; Wt 88.9 kg
[~2022-12-12 03:44] MED LIST changes: -ALBU18HF2 IH; +ALBU6.7H3 INH; +AMLO5TAB88 PO; +APIX5TAB PO; +ASPI-1406 PO; -CLIN-194 MT; +DILT300C35 PO; +ESCI-7 PO; +FLUT250D INH; -FURO-151 MT; +ISOS30TA91 PO; -OMEP40CA20 MT; +P20 MT; +QUET25TA PO; -QUET300T20 PO; +TRAZ-251 PO
[2022-12-12 04:55] LABS: BASOPHILS % 0.5 % (0.0-2.0); EOSINOPHILS % 0.9 % (0.0-5.0); HEMATOCRIT. 36.3 % (36.0-48.0); HEMOGLOBIN. 11.8 g/dL (12.0-16.0); LYMPHOCYTES % 21.9 % (20.0-50.0); MEAN CORPUSCULAR HEMOGLOBIN 30.1 pg (28.0-32.0); MEAN CORPUSCULAR VOLUME 92.8 fL (81.0-99.0); MEAN PLATELET VOLUME 8.4 fl (7.4-10.4); MONOCYTES % 9.8 % (2.0-8.0); NEUTROPHILS % 66.9 % (40.0-76.0); PLATELET 211 x1000/uL (130-400); RED BLOOD CELL COUNT 3.91 mill/uL (4.2-5.4); RED CELL DISTRIBUTION WIDTH 14.8 % (11.6-14.6)
[2022-12-12 05:00] LABS: CHLORIDE 115 mEq/L (98-107); INR 1.1; PROTHROMBIN TIME 11.9 sec (9.6-11.0)
[2022-12-12] MEDS ORDERED: KETOROLAC 30MG/ML VIAL IV ONE (05:30)
[2022-12-12] MEDS ORDERED: SODIUM CHLORIDE 0.9% 1,000 ML IV ONE (05:30)
[2022-12-12] MEDS ORDERED: FUROSEMIDE 40MG/4ML VIAL IVP ONE (07:45)
[2022-12-12] MEDS ORDERED: ENALAPRIL 2.5MG/2ML VIAL 2ML IV ONE (07:45)
[2022-12-12] MEDS: ENALAPRIL 1.25MG/ML VIAL 1ML IV NR ×2 (08:30→14:30)
[2022-12-12 09:41] LABS: CLARITY URINE CLEAR (CLEAR); COLOR URINE YELLOW (YELLOW); PH URINE 5.5 (4.5-8.0); SPECIFIC GRAVITY URINE 1.014 (1.005-1.030)
[2022-12-12 09:42] LABS: KETONES URINE NEGATIVE (NEGATIVE); LEUKOCYTE ESTERASE URINE NEGATIVE (NEGATIVE); NITRITE URINE NEGATIVE (NEGATIVE); OCCULT BLOOD URINE NEGATIVE (NEGATIVE); PROTEIN URINE 2+ (NEGATIVE); UROBILINOGEN URINE 0.2 E.U./dL (0.2-1.0)
[2022-12-12] MEDS: HYDROCODONE/ACETAMINOPHEN 10/325MG TABLET PO PRN ×2 (11:41→21:56)
[2022-12-12] MEDS: DIPHENHYDRAMINE 25MG CAPSULE PO NR (15:45)
[2022-12-12 20:00] VITALS: BP 154/82; PULSE 82; RESP 20; TEMP 98.6
[2022-12-12 20:30] VITALS: BP 154/82; PULSE 82; RESP 20; TEMP 98.6
[2022-12-12] MEDS ORDERED: NALOXONE HCL 0.4MG/ML VIAL IV PRN (20:45)
[2022-12-12] MEDS: TRAZODONE HCL 50MG TABLET PO SCH (21:47)
[2022-12-12] MEDS: APIXABAN 5 MG TABLET PO SCH (21:48)
[2022-12-12] MEDS: QUETIAPINE FUMARATE 25MG TABLET PO SCH (21:48)
[2022-12-13] VITALS (12 sets, daily range): BP systolic 109–122; BP diastolic 67–83; PULSE 50–101; RESP 17–22; TEMP 96.9–98.9; O2SAT 95–97
[2022-12-13] MEDS: IPRATROPIUM/ALBUTEROL 0.5-3(2.5)MG/3ML NEB HHN SCH ×6 (00:54→21:25)
[2022-12-13] MEDS: FUROSEMIDE 40MG/4ML VIAL IVP SCH ×2 (05:44→17:36)
[2022-12-13] MEDS: HYDROCODONE/ACETAMINOPHEN 10/325MG TABLET PO PRN (05:49)
[2022-12-13 06:40] LABS: BASOPHILS % 0.6 % (0.0-2.0); EOSINOPHILS % 1.1 % (0.0-5.0); HEMATOCRIT. 35.7 % (36.0-48.0); HEMOGLOBIN. 11.6 g/dL (12.0-16.0); LYMPHOCYTES % 26.3 % (20.0-50.0); MEAN CORPUSCULAR HEMOGLOBIN 30.7 pg (28.0-32.0); MEAN CORPUSCULAR VOLUME 94.9 fL (81.0-99.0); MEAN PLATELET VOLUME 8.5 fl (7.4-10.4); MONOCYTES % 9.5 % (2.0-8.0); NEUTROPHILS % 62.5 % (40.0-76.0); PLATELET 177 x1000/uL (130-400); RED BLOOD CELL COUNT 3.76 mill/uL (4.2-5.4); RED CELL DISTRIBUTION WIDTH 14.9 % (11.6-14.6)
[2022-12-13] MEDS: LOSARTAN POTASSIUM 50 MG TABLET PO SCH (09:05)
[2022-12-13] MEDS: SPIRONOLACTONE 25MG TABLET PO SCH (09:05)
[2022-12-13] MEDS: APIXABAN 5 MG TABLET PO SCH ×2 (09:05→17:35)
[2022-12-13] MEDS: AMLODIPINE 10MG TABLET PO SCH (09:06)
[2022-12-13] MEDS: ISOSORBIDE MONONITRATE 30MG TABLET SR 24HR PO SCH (09:06)
[2022-12-13] MEDS: ATORVASTATIN CALCIUM 20MG TABLET PO SCH (09:07)
[2022-12-13] MEDS: QUETIAPINE FUMARATE 25MG TABLET PO SCH ×2 (09:07→17:35)
[2022-12-13] MEDS: ASPIRIN 81MG EC TABLET PO SCH (09:07)
[2022-12-13] MEDS: DIPHENHYDRAMINE 25MG CAPSULE PO NR (17:36)
[2022-12-13] MEDS: TRAZODONE HCL 50MG TABLET PO SCH (20:26)
[2022-12-14] VITALS (8 sets, daily range): BP systolic 125–142; BP diastolic 88–97; PULSE 60–113; RESP 17–20; TEMP 97.8–98.1; O2SAT 96–98
[2022-12-14] MEDS: IPRATROPIUM/ALBUTEROL 0.5-3(2.5)MG/3ML NEB HHN SCH ×3 (00:14→09:18)
[2022-12-14] MEDS: FUROSEMIDE 40MG/4ML VIAL IVP SCH (05:47)
[2022-12-14] MEDS: HYDROCODONE/ACETAMINOPHEN 10/325MG TABLET PO PRN (06:33)
[2022-12-14] MEDS: ISOSORBIDE MONONITRATE 30MG TABLET SR 24HR PO SCH (09:07)
[2022-12-14] MEDS: LOSARTAN POTASSIUM 50 MG TABLET PO SCH (09:07)
[2022-12-14] MEDS: QUETIAPINE FUMARATE 25MG TABLET PO SCH (09:07)
[2022-12-14] MEDS: ASPIRIN 81MG EC TABLET PO SCH (09:07)
[2022-12-14] MEDS: SPIRONOLACTONE 25MG TABLET PO SCH (09:07)
[2022-12-14] MEDS: AMLODIPINE 10MG TABLET PO SCH (09:07)
[2022-12-14] MEDS: APIXABAN 5 MG TABLET PO SCH (09:07)
[2022-12-14] MEDS: ATORVASTATIN CALCIUM 20MG TABLET PO SCH (09:07)
== END 2022-12-14 12:15 | disposition home or self-care (01) | DRG 194 ==
LOC: ER 04:11 → EDBEDREQTM 07:35 → EDBEDREQ 07:35 → 8WST 18:53
PROVIDERS: ADMIT Internal Medicine; ATTEND Internal Medicine
DX: I11.0 Hypertensive heart disease with heart failure (principal); J96.20 Acute and chronic respiratory failure, unspecified whether with hypoxia or hypercapnia; E44.0 Moderate protein-calorie malnutrition; I42.9 Cardiomyopathy, unspecified; E66.9 Obesity, unspecified; I48.91 Unspecified atrial fibrillation; F17.210 Nicotine dependence, cigarettes, uncomplicated; I50.23 Acute on chronic systolic (congestive) heart failure; J44.9 Chronic obstructive pulmonary disease, unspecified; F20.9 Schizophrenia, unspecified; Z68.30 Body mass index [BMI] 30.0-30.9, adult; Z88.0 Allergy status to penicillin; Z99.81 Dependence on supplemental oxygen; Z82.5 Family history of asthma and other chronic lower respiratory diseases; Z82.49 Family history of ischemic heart disease and other diseases of the circulatory system; Z88.8 Allergy status to other drugs, medicaments and biological substances
CPT/HCPCS: 36415; 71045; 74176; 80048; 80053; 81003; 83880; 84484; 85025; 94640; 99285; J1885; J1940; J3490; J7030; Q0163

== ENCOUNTER 2022-12-30 06:08 | Emergency (ER) | payer MEDICARE, OTHER ==
[~2022-12-30] VITALS: Ht 167.6 cm; Wt 80.0 kg
[~2022-12-30 06:08] MED LIST changes: +ALBU18HF2 IH; +ASPI-1497 PO; +ATOR20TA65 PO; +BUDE90AE INH; +DILT300C35 MT; +ESCI-7 MT; +FURO-151 MT; +HYDR-4135 PO; +LOSA50TA41 PO
[2022-12-30 06:15] VITALS: TEMP 98.2; O2SAT 96
[2022-12-30] MEDS ORDERED: IPRATROPIUM BROMIDE (0.02%) 0.5MG/2.5ML NEB HHN STA (06:28)
[2022-12-30] MEDS ORDERED: NITROGLYCERIN 0.4MG TABLET SL SL PRN ×2 (06:30→06:45)
[2022-12-30] MEDS ORDERED: ALBUTEROL (0.083%) 2.5MG/3ML NEB HHN SCH (06:30)
[2022-12-30 08:17] LABS: BASOPHILS % 0.6 % (0.0-2.0); EOSINOPHILS % 3.1 % (0.0-5.0); HEMATOCRIT. 37.6 % (36.0-48.0); HEMOGLOBIN. 12.2 g/dL (12.0-16.0); LYMPHOCYTES % 27.6 % (20.0-50.0); MEAN CORPUSCULAR HEMOGLOBIN 29.9 pg (28.0-32.0); MEAN CORPUSCULAR HGB CONC 32.4 g/dL (31.0-37.0); MEAN CORPUSCULAR VOLUME 92.1 fL (81.0-99.0); MEAN PLATELET VOLUME 8.4 fl (7.4-10.4); MONOCYTES % 10.7 % (2.0-8.0); PLATELET 258 x1000/uL (130-400); RED BLOOD CELL COUNT 4.09 mill/uL (4.2-5.4); RED CELL DISTRIBUTION WIDTH 15.1 % (11.6-14.6); WHITE BLOOD COUNT 11.2 x1000/uL (4.5-11.0)
[2022-12-30 08:30] LABS: CHLORIDE 108 mEq/L (98-107); INDEX HEMOLYSI 1 (1-3); INDEX ICTERIC 1 (1-4); INDEX LIPEMIC 1 (1-3); POTASSIUM 3.6 mEq/L (3.5-5.1); SODIUM 141 mEq/L (136-145)
[2022-12-30 08:42] LABS: ALANINE AMINOTRANSFERASE 22 IU/L (13-61); ALBUMIN 3.4 g/dL (3.4-5.0); ASPARTATE AMINOTRANSFERASE 16 IU/L (15-37); BILIRUBIN TOTAL 0.5 mg/dL (0.1-1.0); CALCIUM 8.8 mg/dL (8.5-10.1); CARBON DIOXIDE 28 mEq/L (21-32); CREATININE 1.4 mg/dL (0.6-1.3); GLUCOSE 111 mg/dL (70-105); NT PRO B-TYPE NATRIURETIC PEP 12110 pg/mL (5-125); PROTEIN TOTAL 6.6 g/dL (6.0-8.3); UREA NITROGEN BLOOD 26 mg/dL (7-21)
[2022-12-30 09:14] LABS: TROPONIN I HIGH SENSITIVITY 93 ng/L (<54)
[2022-12-30] MEDS ORDERED: FUROSEMIDE 40MG/4ML VIAL IVP SCH (09:30)
[2022-12-30] MEDS ORDERED: IPRATROPIUM BROMIDE (0.02%) 0.5MG/2.5ML NEB HHN NR (10:38)
[2022-12-30 10:43] VITALS: PULSE 80; RESP 22
[2022-12-30] MEDS: ALBUTEROL (0.083%) 2.5MG/3ML NEB HHN SCH ×3 (10:43→11:16)
[2022-12-30 10:46] LABS: ETHANOL BLOOD < 10 mg/dL (-10)
[2022-12-30 11:01] VITALS: PULSE 78; RESP 20
[2022-12-30 11:16] VITALS: PULSE 84; RESP 20
[2022-12-30 12:00] VITALS: BP 130/95; PULSE 92; RESP 18
[2023-01-04] MEDS ORDERED: APIX5TAB MT ×2 (10:07)
[2023-01-04] MEDS ORDERED: LOSA50TA41 PO ×2 (10:07)
[2023-01-04] MEDS ORDERED: P20 PO ×2 (10:07)
== END 2022-12-30 13:28 | disposition left against medical advice (07) ==
LOC: ER 06:08 → EDBEDREQ 09:24 → CANBEDREQ 13:28 → ER 13:28
DX: I11.0 Hypertensive heart disease with heart failure (principal); I50.9 Heart failure, unspecified; J44.9 Chronic obstructive pulmonary disease, unspecified; R06.02 Shortness of breath; I48.91 Unspecified atrial fibrillation; I49.9 Cardiac arrhythmia, unspecified
CPT/HCPCS: 80053; 80320; 83880; 83690; 85025; 85379; 84484; 36415; 71045; 94640; 93005; 96374; 99291; J1940; Z7610 ×5; 82140; G0480

== ENCOUNTER 2023-01-01 19:08 | Inpatient (IN) | payer MEDICARE, MEDICAID ==
[~2023-01-01] VITALS: Ht 162.6 cm; Wt 86.9 kg
[~2023-01-01 19:08] MED LIST changes: -ALBU18HF2 IH; -ASPI-1497 PO; -ATOR20TA65 PO; -BUDE90AE INH; -DILT300C35 MT; -ESCI-7 MT; -FURO-151 MT; -HYDR-4135 PO; -LOSA50TA41 PO
[2023-01-01 19:14] VITALS: RESP 46
[2023-01-01] MEDS ORDERED: ALBUTEROL (0.083%) 2.5MG/3ML NEB HHN STA (20:02)
[2023-01-01] MEDS ORDERED: METHYLPREDNISOLONE SOD SUCC 125MG/2ML (ACT-O-VIAL) IV STA (20:02)
[2023-01-01] MEDS ORDERED: IPRATROPIUM BROMIDE (0.02%) 0.5MG/2.5ML NEB HHN STA (20:02)
[2023-01-01] MEDS ORDERED: MAGNESIUM 2 G PREMIX 50 ML IV ONE (20:15)
[2023-01-01 20:20] VITALS: RESP 22
[2023-01-01] MEDS ORDERED: METHYLPREDNISOLONE SOD SUCC 125MG VIAL IV NR (20:30)
[2023-01-01 20:53] LABS: BASOPHILS % 0.7 % (0.0-2.0); EOSINOPHILS % 2.3 % (0.0-5.0); HEMATOCRIT. 35.1 % (36.0-48.0); HEMOGLOBIN. 11.7 g/dL (12.0-16.0); LYMPHOCYTES % 17.7 % (20.0-50.0); MEAN CORPUSCULAR HEMOGLOBIN 30.5 pg (28.0-32.0); MEAN CORPUSCULAR VOLUME 91.8 fL (81.0-99.0); MEAN PLATELET VOLUME 8.8 fl (7.4-10.4); MONOCYTES % 10.5 % (2.0-8.0); NEUTROPHILS % 68.8 % (40.0-76.0); PLATELET 203 x1000/uL (130-400); RED BLOOD CELL COUNT 3.83 mill/uL (4.2-5.4); RED CELL DISTRIBUTION WIDTH 14.5 % (11.6-14.6)
[2023-01-01 20:58] LABS: CHLORIDE 110 mEq/L (98-107)
[2023-01-01 21:02] LABS: INR 1.5; PARTIAL THROMBOPLASTIN TIME 32.2 sec (23.4-31.0); PROTHROMBIN TIME 15.8 sec (9.6-11.0)
[2023-01-01 21:12] LABS: BG BASE EXCESS -0.2 mmol/L (-2.0-2.0); BG CARBOXYHEMOGLOBIN 0.5 % (0.5-1.5); BG DEOXYHEMOGLOBIN 2.3 % (0.0-5.0); BG FRACTION INSPIRED OXYGEN 40; BG HCO3 ACT 24.2 mmol/L (22.0-26.0); BG METHEMOGLOBIN 0.1 % (0.0-1.5); BG OXYGEN SATURATION 97.7 % (92.0-98.5); BG OXYHEMOGLOBIN 97.1 % (94.0-97.0); BG PCO2 38.7 mmHg (35.0-45.0); BG PH 7.414 (7.350-7.450); BG PO2 110.3 mmHg (75.0-100.0); BG SAMPLE SITE RIGHT BRACHIAL; BG TOTAL HEMOGLOBIN 12.5 g/dL (12.0-18.0); BG VENT MODE MASK - BIPAP
[2023-01-01] MEDS ORDERED: IPRATROPIUM BROMIDE (0.02%) 0.5MG/2.5ML NEB HHN NR (22:15)
[2023-01-01] MEDS ORDERED: ALBUTEROL (0.083%) 2.5MG/3ML NEB HHN NR (22:15)
[2023-01-01] MEDS ORDERED: FUROSEMIDE 40MG/4ML VIAL IVP ONE (23:15)
[2023-01-02] VITALS (16 sets, daily range): BP systolic 90–159; BP diastolic 52–109; PULSE 82–136; RESP 15–26; TEMP 97.3–98.8; O2SAT 96–98
[2023-01-02] MEDS ORDERED: DEXTROSE 50% WATER 50ML SYRINGE IV PRN
[2023-01-02] MEDS ORDERED: ACETAMINOPHEN 325MG TABLET PO PRN (00:22)
[2023-01-02] MEDS: POTASSIUM CHLORIDE 20MEQ TABLET SR PO NR (00:32)
[2023-01-02] MEDS: LORAZEPAM 1MG TABLET PO PRN (00:33)
[2023-01-02] MEDS: METOPROLOL TARTRATE 50MG TABLET PO SCH ×3 (00:33→21:17)
[2023-01-02] MEDS: IPRATROPIUM/ALBUTEROL 0.5-3(2.5)MG/3ML NEB HHN SCH ×2 (04:03→08:22)
[2023-01-02 06:06] LABS: HEMATOCRIT. 37.3 % (36.0-48.0); HEMOGLOBIN. 12.3 g/dL (12.0-16.0); MEAN CORPUSCULAR HEMOGLOBIN 29.9 pg (28.0-32.0); MEAN PLATELET VOLUME 8.8 fl (7.4-10.4); PLATELET 209 x1000/uL (130-400); RED CELL DISTRIBUTION WIDTH 14.6 % (11.6-14.6)
[2023-01-02] MEDS ORDERED: BLOOD SUGAR DIAGNOSTIC STRIP TEST SCH (07:30)
[2023-01-02] MEDS: BLOOD SUGAR DIAGNOSTIC STRIP TEST SCH ×4 (08:08→21:16)
[2023-01-02] MEDS: FUROSEMIDE 40MG/4ML VIAL IVP SCH ×2 (08:44→16:42)
[2023-01-02] MEDS: APIXABAN 5 MG TABLET PO SCH ×2 (08:47→16:42)
[2023-01-02] MEDS: LOSARTAN POTASSIUM 50 MG TABLET PO SCH (08:47)
[2023-01-02] MEDS: AMLODIPINE 10MG TABLET PO SCH (08:48)
[2023-01-02] MEDS: INSULIN LISPRO 100 UNITS/ML SUBCUT SCH ×4 (08:50→21:17)
[2023-01-02] MEDS ORDERED: FUROSEMIDE 40MG/4ML VIAL IVP SCH (09:00)
[2023-01-02] MEDS ORDERED: METOPROLOL TARTRATE 50MG TABLET PO SCH (09:00)
[2023-01-02] MEDS: QUETIAPINE FUMARATE 25MG TABLET PO SCH ×2 (11:30→21:16)
[2023-01-02] MEDS ORDERED: METOLAZONE 2.5MG TABLET PO NR (12:00)
[2023-01-02] MEDS: PREDNISONE 20MG TABLET PO SCH (12:55)
[2023-01-02] MEDS ORDERED: ATOR20TA65 PO (14:08)
[2023-01-02] MEDS ORDERED: ALBU18HF2 IH (14:08)
[2023-01-02] MEDS ORDERED: ASPI-1406 PO (14:08)
[2023-01-02] MEDS ORDERED: TRAZ-251 PO (14:09)
[2023-01-02] MEDS ORDERED: FLUT250D INH (14:11)
[2023-01-02] MEDS ORDERED: LOSA50TA41 PO (14:11)
[2023-01-02] MEDS: BUDESONIDE 0.5MG/2ML NEB HHN SCH ×2 (14:26→20:56)
[2023-01-02] MEDS: IPRATROPIUM BROMIDE (0.02%) 0.5MG/2.5ML NEB HHN SCH (14:26)
[2023-01-02 18:29] LABS: *AMPHETAMINES SCREEN URINE PRESUMTIVE POSITIVE (NEGATIVE); *BARBITURATES SCREEN URINE NEGATIVE (NEGATIVE); *BENZODIAZEPINES SCREEN URINE NEGATIVE (NEGATIVE); *COCAINE SCREEN URINE NEGATIVE (NEGATIVE); CANNABINOID URINE SCREEN NEGATIVE (NEGATIVE); METHADONE URINE SCREEN NEGATIVE (NEGATIVE); OPIATES URINE SCREEN NEGATIVE (NEGATIVE); PHENCYCLIDINE URINE SCREEN NEGATIVE (NEGATIVE)
[2023-01-02] MEDS: DIPHENHYDRAMINE 50MG CAPSULE PO PRN (20:00)
[2023-01-03] VITALS (15 sets, daily range): BP systolic 93–126; BP diastolic 52–88; PULSE 50–122; RESP 12–32; TEMP 96.8–98.8; O2SAT 94–100
[2023-01-03] MEDS: POTASSIUM CHLORIDE 20MEQ TABLET SR PO NR
[2023-01-03] MEDS: IPRATROPIUM BROMIDE (0.02%) 0.5MG/2.5ML NEB HHN SCH ×4 (02:53→21:28)
[2023-01-03 05:07] LABS: PLATELET ESTIMATE NORMAL
[2023-01-03] MEDS: INSULIN LISPRO 100 UNITS/ML SUBCUT SCH ×4 (08:00→21:05)
[2023-01-03] MEDS: BLOOD SUGAR DIAGNOSTIC STRIP TEST SCH ×4 (08:05→20:53)
[2023-01-03] MEDS: BUDESONIDE 0.5MG/2ML NEB HHN SCH ×2 (08:17→21:28)
[2023-01-03] MEDS: METOPROLOL TARTRATE 50MG TABLET PO SCH ×2 (09:00→21:05)
[2023-01-03] MEDS: PREDNISONE 20MG TABLET PO SCH (09:22)
[2023-01-03] MEDS: LOSARTAN POTASSIUM 50 MG TABLET PO SCH ×2 (09:22→09:34)
[2023-01-03] MEDS: AMLODIPINE 10MG TABLET PO SCH ×2 (09:22→09:34)
[2023-01-03] MEDS: QUETIAPINE FUMARATE 25MG TABLET PO SCH ×2 (09:23→21:04)
[2023-01-03] MEDS: APIXABAN 5 MG TABLET PO SCH ×2 (09:23→17:03)
[2023-01-03] MEDS: FUROSEMIDE 40MG/4ML VIAL IVP SCH ×2 (09:36→16:22)
[2023-01-03] MEDS: DIPHENHYDRAMINE 50MG CAPSULE PO PRN ×2 (09:41→21:05)
[2023-01-03] MEDS ORDERED: FAMOTIDINE 20MG TABLET PO NR (11:30)
[2023-01-03] MEDS ORDERED: FAMOTIDINE 20MG TABLET PO SCH (21:00)
[2023-01-04] VITALS: BP 125/60; PULSE 104; RESP 18; TEMP 98.5
[2023-01-04] MEDS: LORAZEPAM 1MG TABLET PO PRN (00:13)
[2023-01-04 00:40] VITALS: RESP 17
[2023-01-04] MEDS: IPRATROPIUM BROMIDE (0.02%) 0.5MG/2.5ML NEB HHN SCH ×2 (00:43→08:49)
[2023-01-04] MEDS: DIPHENHYDRAMINE 50MG CAPSULE PO PRN (03:45)
[2023-01-04 04:00] VITALS: BP 120/78; PULSE 95; RESP 17; TEMP 98.2
[2023-01-04] MEDS: BLOOD SUGAR DIAGNOSTIC STRIP TEST SCH (07:30)
[2023-01-04 08:00] VITALS: BP 121/81; PULSE 93; RESP 18; TEMP 97.9
[2023-01-04] MEDS: INSULIN LISPRO 100 UNITS/ML SUBCUT SCH (08:00)
[2023-01-04 08:50] VITALS: PULSE 115; RESP 22; O2SAT 100
[2023-01-04] MEDS: BUDESONIDE 0.5MG/2ML NEB HHN SCH (08:50)
[2023-01-04] MEDS: FUROSEMIDE 40MG/4ML VIAL IVP SCH (09:02)
[2023-01-04] MEDS: APIXABAN 5 MG TABLET PO SCH (09:03)
[2023-01-04] MEDS: PREDNISONE 20MG TABLET PO SCH (09:03)
[2023-01-04] MEDS: METOPROLOL TARTRATE 50MG TABLET PO SCH (09:06)
[2023-01-04] MEDS: QUETIAPINE FUMARATE 25MG TABLET PO SCH (09:10)
[2023-01-04] MEDS ORDERED: P20 PO (10:07)
[2023-01-04] MEDS ORDERED: FURO-151 MT (10:07)
[2023-01-04] MEDS ORDERED: METO-539 PO (10:07)
[2023-01-04] MEDS ORDERED: LOSA50TA41 PO (10:07)
[2023-01-04] MEDS ORDERED: APIX5TAB MT (10:07)
[2023-01-04] MEDS ORDERED: FLUT1DIS3 INH (10:07)
[2023-01-04] MEDS ORDERED: ATROV INH (10:07)
[2023-01-04] MEDS ORDERED: POTA-205 MT (10:07)
[2023-01-04 10:33] VITALS: BP 121/81; PULSE 93; TEMP 97.3; O2SAT 99
== END 2023-01-04 10:50 | disposition home or self-care (01) | DRG 194 ==
LOC: ER 19:08 → EDBEDREQ 22:50 → 5EST 22:50 → EDBEDREQTM 22:50 → ENRESERV 22:54
PROVIDERS: ADMIT Internal Medicine; ATTEND Internal Medicine
PROC: 5A09357 Assistance with Respiratory Ventilation, Less than 24 Consecutive Hours, Continuous Positive Airway Pressure (ICD-10-PCS; principal; 2023-01-01)
DX: I11.0 Hypertensive heart disease with heart failure (principal); J96.21 Acute and chronic respiratory failure with hypoxia; E44.1 Mild protein-calorie malnutrition; I42.9 Cardiomyopathy, unspecified; J44.1 Chronic obstructive pulmonary disease with (acute) exacerbation; I50.23 Acute on chronic systolic (congestive) heart failure; E87.6 Hypokalemia; I48.91 Unspecified atrial fibrillation; E66.9 Obesity, unspecified; E11.9 Type 2 diabetes mellitus without complications; F20.9 Schizophrenia, unspecified; F12.20 Cannabis dependence, uncomplicated; Z79.01 Long term (current) use of anticoagulants; Z86.73 Personal history of transient ischemic attack (TIA), and cerebral infarction without residual deficits; Z79.899 Other long term (current) drug therapy; Z68.32 Body mass index [BMI] 32.0-32.9, adult; Z88.0 Allergy status to penicillin; Z99.81 Dependence on supplemental oxygen; Z82.5 Family history of asthma and other chronic lower respiratory diseases; Z82.49 Family history of ischemic heart disease and other diseases of the circulatory system
CPT/HCPCS: 36415; 36600; 71045; 80048; 80053; 80061; 80305; 82375; 82805; 82962; 83036; 83880; 84484; 85025; 94640; 94660; 99285; J1815; J1940; J2930; J3475; J7512; J7626; Q0163

== ENCOUNTER 2023-01-17 06:01 | Emergency (ER) | payer MEDICARE, MEDICAID ==
[~2023-01-17] VITALS: Ht 165.1 cm; Wt 73.0 kg
[~2023-01-17 06:01] MED LIST changes: +ALBU18HF2 IH; -ALBU6.7H3 INH; -AMLO5TAB88 PO; +APIX5TAB MT; +ASPI-1497 PO; -ATOR20TA65 MT; +ATOR20TA65 PO; +ATROV INH; +BUDE90AE INH; -CARV25TA47 MT; +DILT300C35 MT; -DILT300C35 PO; +ESCI-7 MT; -ESCI-7 PO; +FLUT1DIS3 INH; +FURO-151 MT; -FURO40TA5 PO; +HYDR-4135 PO; -LOSA-413 PO; +LOSA50TA41 PO; +METO-539 PO; +P20 PO; +POTA-205 MT; -SPIR25TA PO; -TOPUD PO
[2023-01-17 06:03] VITALS: O2SAT 98
[2023-01-17] MEDS ORDERED: HYDRALAZINE 20MG/ML VIAL IV ONE (07:00)
[2023-01-17] MEDS ORDERED: FUROSEMIDE 40MG/4ML VIAL IVP ONE (07:00)
[2023-01-17 07:17] VITALS: RESP 24
[2023-01-17 07:44] VITALS: RESP 24
[2023-01-17 07:50] VITALS: BP 148/98; PULSE 136; RESP 24; TEMP 98.2
[2023-01-17 08:16] LABS: BASOPHILS % 0.4 % (0.0-2.0); DIFFERENTIAL COMMENT 0; EOSINOPHILS % 1.9 % (0.0-5.0); HEMATOCRIT. 39.9 % (36.0-48.0); LYMPHOCYTES % 25.4 % (20.0-50.0); MEAN CORPUSCULAR HEMOGLOBIN 29.8 pg (28.0-32.0); MEAN CORPUSCULAR HGB CONC 30.1 g/dL (31.0-37.0); MEAN CORPUSCULAR VOLUME 98.8 fL (81.0-99.0); MEAN PLATELET VOLUME 8.9 fl (7.4-10.4); MONOCYTES % 7.2 % (2.0-8.0); NEUTROPHILS % 65.1 % (40.0-76.0); PLATELET 152 x1000/uL (130-400); RED BLOOD CELL COUNT 4.04 mill/uL (4.2-5.4); WHITE BLOOD COUNT 9.3 x1000/uL (4.5-11.0)
[2023-01-17 08:26] LABS: CHLORIDE 116 mEq/L (98-107); INDEX HEMOLYSI 4 (1-3); INDEX ICTERIC 1 (1-4); INDEX LIPEMIC 1 (1-3); SODIUM 139 mEq/L (136-145)
[2023-01-17 08:26] LABS: BG BASE EXCESS -7.3 mmol/L (-2.0-2.0); BG CARBOXYHEMOGLOBIN 0.3 % (0.5-1.5); BG DEOXYHEMOGLOBIN 1.9 % (0.0-5.0); BG HCO3 ACT 17.1 mmol/L (22.0-26.0); BG METHEMOGLOBIN 0.3 % (0.0-1.5); BG OXYGEN SATURATION 98.1 % (92.0-98.5); BG OXYHEMOGLOBIN 97.5 % (94.0-97.0); BG PCO2 31.6 mmHg (35.0-45.0); BG PH 7.352 (7.350-7.450); BG PO2 126.1 mmHg (75.0-100.0); BG SAMPLE SITE RIGHT BRACHIAL; BG TOTAL HEMOGLOBIN 12.8 g/dL (12.0-18.0); BG VENT MODE MASK - BIPAP
[2023-01-17 08:35] LABS: ALANINE AMINOTRANSFERASE 31 IU/L (13-61); ALBUMIN 3.1 g/dL (3.4-5.0); ASPARTATE AMINOTRANSFERASE 38 IU/L (15-37); BILIRUBIN TOTAL 0.5 mg/dL (0.1-1.0); CALCIUM 7.8 mg/dL (8.5-10.1); CARBON DIOXIDE 17 mEq/L (21-32); GLUCOSE 101 mg/dL (70-105); NT PRO B-TYPE NATRIURETIC PEP 30299 pg/mL (5-125); PROTEIN TOTAL 6.3 g/dL (6.0-8.3); UREA NITROGEN BLOOD 36 mg/dL (7-21)
[2023-01-17 09:01] LABS: TROPONIN I HIGH SENSITIVITY 124 ng/L (<54)
[2023-01-17] MEDS ORDERED: FUROSEMIDE 40MG/4ML VIAL IVP NR (09:30)
== END 2023-01-17 10:39 | disposition left against medical advice (07) ==
LOC: ER 06:03 → CANBEDREQ 01-18 22:09
DX: R06.02 Shortness of breath (principal); I48.91 Unspecified atrial fibrillation; I50.9 Heart failure, unspecified; J44.9 Chronic obstructive pulmonary disease, unspecified; E11.9 Type 2 diabetes mellitus without complications; I49.8 Other specified cardiac arrhythmias; F15.10 Other stimulant abuse, uncomplicated; Z86.73 Personal history of transient ischemic attack (TIA), and cerebral infarction without residual deficits; Z79.899 Other long term (current) drug therapy
CPT/HCPCS: 94660 ×2; 80053; 83880; 85025; 84484; 36415; 71045; 82805; 82375; 93005; 96374; 99291; 36600; J1940; J0360; Z7610 ×2

== ENCOUNTER 2023-01-18 00:31 | Emergency (ER) | payer MEDICARE, MEDICAID ==
[~2023-01-18] VITALS: Ht 167.6 cm; Wt 82.0 kg
[2023-01-18 00:39] VITALS: BP 132/78; PULSE 75; RESP 18; TEMP 98.1; O2SAT 95
== END 2023-01-18 01:30 | disposition left against medical advice (07) ==
LOC: ER 00:54
DX: Z53.21 Procedure and treatment not carried out due to patient leaving prior to being seen by health care provider (principal)
CPT/HCPCS: 99281

== ENCOUNTER 2023-02-21 16:27 | Emergency (ER) | payer MEDICARE, MEDICAID ==
[~2023-02-21] VITALS: Ht 170.2 cm; Wt 81.6 kg
[~2023-02-21 16:27] MED LIST changes: -ASPI-1406 PO; -DILT300C35 MT; -FLUT250D INH; -HYDR-4135 PO; -ISOS30TA91 PO; +METO-539 MT; -P20 MT; -P20 PO
[2023-02-21 16:29] VITALS: PULSE 95; RESP 18
[2023-02-21 16:35] VITALS: BP 145/100; TEMP 98.5; O2SAT 99
[2023-02-21 17:06] LABS: BASOPHILS % 0.8 % (0.0-2.0); EOSINOPHILS % 2.3 % (0.0-5.0); HEMATOCRIT. 42.4 % (36.0-48.0); HEMOGLOBIN. 13.6 g/dL (12.0-16.0); LYMPHOCYTES % 21.6 % (20.0-50.0); MEAN CORPUSCULAR HEMOGLOBIN 29.2 pg (28.0-32.0); MEAN CORPUSCULAR HGB CONC 32.1 g/dL (31.0-37.0); MEAN CORPUSCULAR VOLUME 90.8 fL (81.0-99.0); MEAN PLATELET VOLUME 8.4 fl (7.4-10.4); MONOCYTES % 10.4 % (2.0-8.0); NEUTROPHILS % 64.9 % (40.0-76.0); PLATELET 203 x1000/uL (130-400); RED BLOOD CELL COUNT 4.67 mill/uL (4.2-5.4); RED CELL DISTRIBUTION WIDTH 15.1 % (11.6-14.6)
[2023-02-21 17:24] LABS: CHLORIDE 108 mEq/L (98-107); INDEX HEMOLYSI 3 (1-3); INDEX ICTERIC 1 (1-4); INDEX LIPEMIC 1 (1-3); POTASSIUM 3.2 mEq/L (3.5-5.1); SODIUM 139 mEq/L (136-145)
[2023-02-21 17:32] LABS: ALANINE AMINOTRANSFERASE 23 IU/L (13-61); ALBUMIN 3.2 g/dL (3.4-5.0); ASPARTATE AMINOTRANSFERASE 23 IU/L (15-37); BILIRUBIN TOTAL 0.5 mg/dL (0.1-1.0); CALCIUM 8.4 mg/dL (8.5-10.1); CARBON DIOXIDE 23 mEq/L (21-32); CREATININE 2.2 mg/dL (0.6-1.3); GLUCOSE 108 mg/dL (70-105); UREA NITROGEN BLOOD 31 mg/dL (7-21)
== END 2023-02-21 18:00 | disposition left against medical advice (07) ==
LOC: ER 16:27
DX: Z53.21 Procedure and treatment not carried out due to patient leaving prior to being seen by health care provider (principal)
CPT/HCPCS: 36415; 80053; 85025; 86850; 86900; 99281

== ENCOUNTER 2023-02-22 13:45 | Emergency (ER) | payer MEDICARE, MEDICAID ==
[~2023-02-22] VITALS: Ht 165.1 cm; Wt 68.0 kg
[2023-02-22 13:57] VITALS: BP 111/90; PULSE 51; RESP 20; TEMP 98.4; O2SAT 98
== END 2023-02-22 16:14 | disposition left against medical advice (07) ==
LOC: ER 13:45
DX: Z53.21 Procedure and treatment not carried out due to patient leaving prior to being seen by health care provider (principal)
CPT/HCPCS: 99281

== ENCOUNTER 2023-02-27 12:07 | Emergency (ER) | payer MEDICARE, MEDICAID ==
[~2023-02-27] VITALS: Ht 167.6 cm; Wt 63.0 kg
[2023-02-27 12:18] VITALS: O2SAT 100
[2023-02-27] MEDS ORDERED: ACETAMINOPHEN 325MG TABLET PO STA (13:33)
[2023-02-27 15:11] VITALS: BP 118/79; PULSE 63; RESP 17; TEMP 98.5
== END 2023-02-27 15:16 | disposition home or self-care (01) ==
LOC: ER 12:24
DX: M25.521 Pain in right elbow (principal); I48.91 Unspecified atrial fibrillation; I49.9 Cardiac arrhythmia, unspecified; I50.9 Heart failure, unspecified; J44.9 Chronic obstructive pulmonary disease, unspecified; E11.9 Type 2 diabetes mellitus without complications; F20.9 Schizophrenia, unspecified; Z86.73 Personal history of transient ischemic attack (TIA), and cerebral infarction without residual deficits; Z79.899 Other long term (current) drug therapy
CPT/HCPCS: 73080; 99283

== ENCOUNTER 2023-03-11 11:00 | Inpatient (IN) | payer MEDICARE, MEDICAID ==
[~2023-03-11] VITALS: Ht 165.1 cm; Wt 77.1 kg
[2023-03-11] MEDS ORDERED: MORPHINE SULFATE 2 MG/ML CPJ (NOT FOR IM USE) IV ONE (12:15)
[2023-03-11] MEDS ORDERED: ONDANSETRON HCL 4MG/2ML INJ IV ONE (12:15)
[2023-03-11 12:20] VITALS: RESP 25
[2023-03-11 12:59] LABS: BASOPHILS % 0.4 % (0.0-2.0); EOSINOPHILS % 1.4 % (0.0-5.0); HEMATOCRIT. 41.3 % (36.0-48.0); HEMOGLOBIN. 13.3 g/dL (12.0-16.0); LYMPHOCYTES % 29.8 % (20.0-50.0); MEAN CORPUSCULAR HGB CONC 32.2 g/dL (31.0-37.0); MEAN CORPUSCULAR VOLUME 90.3 fL (81.0-99.0); MEAN PLATELET VOLUME 8.4 fl (7.4-10.4); MONOCYTES % 12.4 % (2.0-8.0); PLATELET 187 x1000/uL (130-400); RED BLOOD CELL COUNT 4.58 mill/uL (4.2-5.4); RED CELL DISTRIBUTION WIDTH 15.9 % (11.6-14.6); WHITE BLOOD COUNT 7.5 x1000/uL (4.5-11.0)
[2023-03-11 13:12] LABS: CHLORIDE 115 mEq/L (98-107); INDEX HEMOLYSI 1 (1-3); INDEX ICTERIC 1 (1-4); INDEX LIPEMIC 1 (1-3); POTASSIUM 3.9 mEq/L (3.5-5.1); SODIUM 143 mEq/L (136-145)
[2023-03-11] MEDS ORDERED: METHYLPREDNISOLONE SOD SUCC 125MG/2ML (ACT-O-VIAL) IV NR (13:15)
[2023-03-11] MEDS ORDERED: METHYLPREDNISOLONE SOD SUCC 40MG VIAL IV ONE (13:15)
[2023-03-11] MEDS ORDERED: DILTIAZEM HCL 5MG/ML 5ML VIAL IV ONE (13:15)
[2023-03-11 13:36] LABS: ALANINE AMINOTRANSFERASE 16 IU/L (13-61); ALBUMIN 3.1 g/dL (3.4-5.0); ASPARTATE AMINOTRANSFERASE 24 IU/L (15-37); BILIRUBIN TOTAL 0.7 mg/dL (0.1-1.0); CALCIUM 8.8 mg/dL (8.5-10.1); CARBON DIOXIDE 22 mEq/L (21-32); GLUCOSE 117 mg/dL (70-105); NT PRO B-TYPE NATRIURETIC PEP 36288 pg/mL (5-125); PROTEIN TOTAL 6.8 g/dL (6.0-8.3); UREA NITROGEN BLOOD 40 mg/dL (7-21)
[2023-03-11 13:52] LABS: TROPONIN I HIGH SENSITIVITY 148 ng/L (<54)
[2023-03-11 14:39] LABS: BG BASE EXCESS -9.1 mmol/L (-2.0-2.0); BG CARBOXYHEMOGLOBIN 0.7 % (0.5-1.5); BG DEOXYHEMOGLOBIN 0.2 % (0.0-5.0); BG FRACTION INSPIRED OXYGEN 100; BG HCO3 ACT 17.3 mmol/L (22.0-26.0); BG METHEMOGLOBIN 0.4 % (0.0-1.5); BG OXYGEN SATURATION 99.8 % (92.0-98.5); BG OXYHEMOGLOBIN 98.7 % (94.0-97.0); BG PCO2 39.4 mmHg (35.0-45.0); BG PH 7.261 (7.350-7.450); BG PO2 322.6 mmHg (75.0-100.0); BG SAMPLE SITE RIGHT RADIAL; BG TOTAL HEMOGLOBIN 14.7 g/dL (12.0-18.0); BG VENT MODE MASK - BIPAP
[2023-03-11] MEDS ORDERED: DILTIAZEM HCL 5MG/ML 5ML VIAL IV NR (15:00)
[2023-03-11] MEDS ORDERED: FUROSEMIDE 40MG/4ML VIAL IVP ONE (15:15)
[2023-03-11 15:30] VITALS: RESP 22
[2023-03-11 16:23] LABS: TROPONIN I HIGH SENSITIVITY 114 ng/L (<54)
[2023-03-11 20:00] VITALS: BP 124/108; PULSE 110; RESP 15
[2023-03-11 21:42] VITALS: BP 114/99; PULSE 103; RESP 15; TEMP 101.1
[2023-03-12] VITALS: BP 132/99; PULSE 111; RESP 16; TEMP 99.6
[2023-03-12 04:00] VITALS: BP 108/96; PULSE 111; RESP 16
[2023-03-12 06:52] LABS: BASOPHILS % 0.3 % (0.0-2.0); HEMATOCRIT. 42.3 % (36.0-48.0); HEMOGLOBIN. 14.2 g/dL (12.0-16.0); LYMPHOCYTES % 14.3 % (20.0-50.0); MEAN CORPUSCULAR HEMOGLOBIN 29.9 pg (28.0-32.0); MEAN CORPUSCULAR HGB CONC 33.6 g/dL (31.0-37.0); MEAN PLATELET VOLUME 9.3 fl (7.4-10.4); MONOCYTES % 4.6 % (2.0-8.0); NEUTROPHILS % 80.8 % (40.0-76.0); PLATELET 185 x1000/uL (130-400); RED BLOOD CELL COUNT 4.75 mill/uL (4.2-5.4); RED CELL DISTRIBUTION WIDTH 15.9 % (11.6-14.6); WHITE BLOOD COUNT 4.7 x1000/uL (4.5-11.0)
[2023-03-12 07:53] LABS: POTASSIUM 4.1 mEq/L (3.5-5.1)
[2023-03-12 07:58] LABS: CALCIUM 8.3 mg/dL (8.5-10.1); CREATININE 1.7 mg/dL (0.6-1.3)
[2023-03-12 08:00] VITALS: BP 118/91; PULSE 117; RESP 14; TEMP 98
[2023-03-12] MEDS ORDERED: METOPROLOL TARTRATE 50MG TABLET PO SCH (09:00)
[2023-03-12] MEDS ORDERED: APIXABAN 5 MG TABLET PO SCH (09:00)
[2023-03-12] MEDS: ASPIRIN 81MG EC TABLET PO SCH (09:16)
[2023-03-12] MEDS: APIXABAN 5 MG TABLET PO SCH ×2 (09:16→18:16)
[2023-03-12] MEDS: METOPROLOL TARTRATE 50MG TABLET PO SCH ×2 (09:17→18:16)
[2023-03-12] MEDS: QUETIAPINE FUMARATE 25MG TABLET PO SCH ×2 (09:20→20:41)
[2023-03-12] MEDS ORDERED: HYDROCODONE/ACETAMINOPHEN 5/325MG TABLET PO PRN (11:45)
[2023-03-12 12:00] VITALS: BP 95/77; PULSE 85; RESP 19; TEMP 97.6
[2023-03-12] MEDS ORDERED: NALOXONE HCL 0.4MG/ML VIAL IV PRN (12:00)
[2023-03-12] MEDS ORDERED: IPRATROPIUM/ALBUTEROL 0.5-3(2.5)MG/3ML NEB NEB PRN (12:15)
[2023-03-12] MEDS ORDERED: ONDANSETRON HCL 4MG/2ML INJ IV PRN (12:15)
[2023-03-12] MEDS ORDERED: DOCUSATE SODIUM 100MG CAPSULE PO PRN (12:15)
[2023-03-12] MEDS ORDERED: FUROSEMIDE 40MG/4ML VIAL IVP NR (12:30)
[2023-03-12] MEDS ORDERED: ALBUTEROL (0.083%) 2.5MG/3ML NEB HHN SCH (12:30)
[2023-03-12] MEDS: CITALOPRAM HYDROBROMIDE 10MG TABLET PO SCH (12:38)
[2023-03-12 16:26] LABS: PHOSPHORUS 4.9 mg/dL (2.5-4.9)
[2023-03-12 16:36] LABS: TROPONIN I HIGH SENSITIVITY 76 ng/L (<54)
[2023-03-12] MEDS ORDERED: MEDICATION NOT ON FORMULARY EA (Fluticasone/Salmeterol (Advair 250-50 Diskus) 1 PUFF) INH SCH (17:00)
[2023-03-12] MEDS ORDERED: BUDESONIDE 0.5MG/2ML NEB HHN SCH (17:00)
[2023-03-12] MEDS ORDERED: BUDESONIDE INH SCH (17:00)
[2023-03-12 20:00] VITALS: BP 107/81; PULSE 101; RESP 18; TEMP 96.4
[2023-03-12] MEDS ORDERED: LOSARTAN 50 MG TABLET PO SCH (21:00)
[2023-03-12] MEDS ORDERED: ATORVASTATIN CALCIUM 20MG TABLET PO SCH (21:00)
[2023-03-12] MEDS ORDERED: TRAZODONE HCL 50MG TABLET PO SCH (21:00)
[2023-03-12 22:53] LABS: TROPONIN I HIGH SENSITIVITY 81 ng/L (<54)
[2023-03-13] VITALS (7 sets, daily range): BP systolic 92–126; BP diastolic 62–102; PULSE 67–85; RESP 18–24; TEMP 96.6–98; O2SAT 96
[2023-03-13] MEDS: CITALOPRAM HYDROBROMIDE 10MG TABLET PO SCH (08:22)
[2023-03-13] MEDS: METOPROLOL TARTRATE 50MG TABLET PO SCH ×2 (08:23→16:21)
[2023-03-13] MEDS: QUETIAPINE FUMARATE 25MG TABLET PO SCH (08:23)
[2023-03-13] MEDS: ASPIRIN 81MG EC TABLET PO SCH (08:23)
[2023-03-13] MEDS: APIXABAN 5 MG TABLET PO SCH ×2 (08:23→16:21)
[2023-03-13] MEDS ORDERED: FUROSEMIDE 40MG/4ML VIAL IVP SCH (09:00)
[2023-03-13] MEDS ORDERED: MEDICATION NOT ON FORMULARY EA (Escitalopram Oxalate 1 TAB) MT SCH (09:00)
[2023-03-13 09:56] LABS: BASOPHILS % 0.4 % (0.0-2.0); EOSINOPHILS % 0.8 % (0.0-5.0); HEMATOCRIT. 38.6 % (36.0-48.0); LYMPHOCYTES % 29.2 % (20.0-50.0); MEAN CORPUSCULAR HEMOGLOBIN 28.2 pg (28.0-32.0); MEAN CORPUSCULAR HGB CONC 31.1 g/dL (31.0-37.0); MEAN CORPUSCULAR VOLUME 90.7 fL (81.0-99.0); MEAN PLATELET VOLUME 9.1 fl (7.4-10.4); MONOCYTES % 10.6 % (2.0-8.0); PLATELET 150 x1000/uL (130-400); RED BLOOD CELL COUNT 4.26 mill/uL (4.2-5.4); RED CELL DISTRIBUTION WIDTH 16.2 % (11.6-14.6); WHITE BLOOD COUNT 6.9 x1000/uL (4.5-11.0)
[2023-03-13 10:04] LABS: CHLORIDE 116 mEq/L (98-107); INDEX HEMOLYSI 1 (1-3); INDEX ICTERIC 1 (1-4); INDEX LIPEMIC 1 (1-3); POTASSIUM 3.9 mEq/L (3.5-5.1); SODIUM 142 mEq/L (136-145)
[2023-03-13 10:19] LABS: ALANINE AMINOTRANSFERASE 14 IU/L (13-61); ALBUMIN 2.6 g/dL (3.4-5.0); ASPARTATE AMINOTRANSFERASE 23 IU/L (15-37); BILIRUBIN DIRECT 0.2 mg/dL (0.0-0.2); BILIRUBIN TOTAL 0.8 mg/dL (0.1-1.0); CALCIUM 8.3 mg/dL (8.5-10.1); CARBON DIOXIDE 22 mEq/L (21-32); CREATININE 1.9 mg/dL (0.6-1.3); GLUCOSE 138 mg/dL (70-105); PROTEIN TOTAL 5.7 g/dL (6.0-8.3); UREA NITROGEN BLOOD 44 mg/dL (7-21)
[2023-03-13 12:58] LABS: ECSTASY MDMA SCREEN URINE CONF.TEST INDICATED (NEGATIVE)
[2023-03-13 13:04] LABS: *AMPHETAMINES SCREEN URINE PRESUMTIVE POSITIVE (NEGATIVE); *BARBITURATES SCREEN URINE NEGATIVE (NEGATIVE); *BENZODIAZEPINES SCREEN URINE NEGATIVE (NEGATIVE); *COCAINE SCREEN URINE NEGATIVE (NEGATIVE); CANNABINOID URINE SCREEN NEGATIVE (NEGATIVE); OPIATES URINE SCREEN PRESUMTIVE POSITIVE (NEGATIVE); PHENCYCLIDINE URINE SCREEN NEGATIVE (NEGATIVE)
[2023-03-20] MEDS ORDERED: FURO-151 MT (09:57)
[2023-03-20] MEDS ORDERED: P20 MT (09:57)
== END 2023-03-13 17:56 | disposition home or self-care (01) | DRG 140 ==
LOC: ER 11:00 → 5EST 18:51 → 8WST 03-12 17:13
PROVIDERS: ADMIT Internal Medicine; ATTEND Internal Medicine
PROC: 5A09357 Assistance with Respiratory Ventilation, Less than 24 Consecutive Hours, Continuous Positive Airway Pressure (ICD-10-PCS; principal; 2023-03-11)
DX: J44.1 Chronic obstructive pulmonary disease with (acute) exacerbation (principal); J96.21 Acute and chronic respiratory failure with hypoxia; I50.23 Acute on chronic systolic (congestive) heart failure; N17.9 Acute kidney failure, unspecified; E87.20 Acidosis, unspecified; I13.0 Hypertensive heart and chronic kidney disease with heart failure and stage 1 through stage 4 chronic kidney disease, or unspecified chronic kidney disease; I42.0 Dilated cardiomyopathy; E11.22 Type 2 diabetes mellitus with diabetic chronic kidney disease; F20.9 Schizophrenia, unspecified; I07.1 Rheumatic tricuspid insufficiency; I44.7 Left bundle-branch block, unspecified; N18.9 Chronic kidney disease, unspecified; I48.19 Other persistent atrial fibrillation; F15.10 Other stimulant abuse, uncomplicated; F17.210 Nicotine dependence, cigarettes, uncomplicated; F31.9 Bipolar disorder, unspecified; F41.9 Anxiety disorder, unspecified; F60.0 Paranoid personality disorder; I25.10 Atherosclerotic heart disease of native coronary artery without angina pectoris; Z82.49 Family history of ischemic heart disease and other diseases of the circulatory system; Z99.81 Dependence on supplemental oxygen; Z86.73 Personal history of transient ischemic attack (TIA), and cerebral infarction without residual deficits; Z79.01 Long term (current) use of anticoagulants; Z82.5 Family history of asthma and other chronic lower respiratory diseases; Z88.0 Allergy status to penicillin
CPT/HCPCS: 36415; 36600; 71045; 76770; 80048; 80053; 80076; 80305; 82375; 82570; 82805; 83735; 83880; 84100; 84300; 84439; 84443; 84484; 85025; 93005; 93306; 94640; 94660; 99291; J1940; J2270; J2405; J2920; J2930; J3490; J7626

== ENCOUNTER 2023-03-14 21:04 | Inpatient (IN) | payer MEDICARE, OTHER ==
[~2023-03-14] VITALS: Ht 177.8 cm; Wt 61.0 kg
[2023-03-14] MEDS ORDERED: METHYLPREDNISOLONE SOD SUCC 125MG/2ML (ACT-O-VIAL) IV STA (21:31)
[2023-03-14] MEDS ORDERED: ALBUTEROL (0.083%) 2.5MG/3ML NEB HHN STA (21:31)
[2023-03-14] MEDS ORDERED: IPRATROPIUM BROMIDE (0.02%) 0.5MG/2.5ML NEB HHN STA (21:31)
[2023-03-14 22:10] VITALS: PULSE 114; RESP 16; O2SAT 99
[2023-03-14 22:23] LABS: BASOPHILS % 0.6 % (0.0-2.0); EOSINOPHILS % 1.3 % (0.0-5.0); LYMPHOCYTES % 19.6 % (20.0-50.0); MEAN CORPUSCULAR HEMOGLOBIN 28.7 pg (28.0-32.0); MEAN CORPUSCULAR HGB CONC 31.6 g/dL (31.0-37.0); MEAN CORPUSCULAR VOLUME 90.9 fL (81.0-99.0); MEAN PLATELET VOLUME 9.4 fl (7.4-10.4); MONOCYTES % 12.1 % (2.0-8.0); NEUTROPHILS % 66.4 % (40.0-76.0); PLATELET 163 x1000/uL (130-400); RED BLOOD CELL COUNT 4.52 mill/uL (4.2-5.4); RED CELL DISTRIBUTION WIDTH 16.1 % (11.6-14.6); WHITE BLOOD COUNT 8.2 x1000/uL (4.5-11.0)
[2023-03-14 22:30] LABS: CHLORIDE 115 mEq/L (98-107); INDEX HEMOLYSI 2 (1-3); INDEX ICTERIC 1 (1-4); INDEX LIPEMIC 1 (1-3); POTASSIUM 4.2 mEq/L (3.5-5.1); SODIUM 143 mEq/L (136-145)
[2023-03-14 22:36] LABS: ALANINE AMINOTRANSFERASE 19 IU/L (13-61); ALBUMIN 3.1 g/dL (3.4-5.0); ASPARTATE AMINOTRANSFERASE 29 IU/L (15-37); BILIRUBIN TOTAL 0.5 mg/dL (0.1-1.0); CALCIUM 8.1 mg/dL (8.5-10.1); CARBON DIOXIDE 23 mEq/L (21-32); CREATININE 1.4 mg/dL (0.6-1.3); GLUCOSE 90 mg/dL (70-105); PROTEIN TOTAL 6.9 g/dL (6.0-8.3); UREA NITROGEN BLOOD 43 mg/dL (7-21)
[2023-03-14 22:50] LABS: NT PRO B-TYPE NATRIURETIC PEP 34224 pg/mL (5-125); TROPONIN I HIGH SENSITIVITY 2836 ng/L (<54)
[2023-03-14] MEDS ORDERED: ASPIRIN 325MG TABLET PO ONE (23:15)
[2023-03-15] VITALS (11 sets, daily range): BP systolic 118–146; BP diastolic 86–107; PULSE 72–122; RESP 5–33; TEMP 97.8–98.5; O2SAT 98
[2023-03-15] MEDS ORDERED: DILTIAZEM HCL 5MG/ML 5ML VIAL IV ONE
[2023-03-15] MEDS ORDERED: FUROSEMIDE 40MG TABLET PO ONE (00:30)
[2023-03-15] MEDS ORDERED: FUROSEMIDE 40MG TABLET PO NR (03:30)
[2023-03-15] MEDS ORDERED: HYDROCODONE/ACETAMINOPHEN 10/325MG TABLET PO PRN (08:15)
[2023-03-15] MEDS: ASPIRIN 81MG EC TABLET PO SCH (09:21)
[2023-03-15] MEDS: METOPROLOL TARTRATE 50MG TABLET PO SCH ×2 (09:22→17:17)
[2023-03-15] MEDS: LOSARTAN 50 MG TABLET PO SCH (09:22)
[2023-03-15] MEDS: ISOSORBIDE MONONITRATE 60MG TABLET SR 24HR PO SCH (09:23)
[2023-03-15] MEDS: QUETIAPINE FUMARATE 25MG TABLET PO SCH ×2 (09:28→22:32)
[2023-03-15] MEDS ORDERED: ENOXAPARIN 60MG/0.6ML SYR SUBCUT SCH ×2 (10:00)
[2023-03-15 10:22] LABS: CLARITY URINE CLEAR (CLEAR); COLOR URINE YELLOW (YELLOW); GLUCOSE URINE NEGATIVE (NEGATIVE); KETONES URINE NEGATIVE (NEGATIVE); LEUKOCYTE ESTERASE URINE NEGATIVE (NEGATIVE); NITRITE URINE NEGATIVE (NEGATIVE); OCCULT BLOOD URINE TRACE (NEGATIVE); PROTEIN URINE 1+ (NEGATIVE); UROBILINOGEN URINE 0.2 E.U./dL (0.2-1.0)
[2023-03-15 10:25] LABS: BACTERIA URINE NONE SEEN; RBC URINE NONE SEEN /hpf (0-2); WBC URINE NONE SEEN /hpf (0-2); YEAST URINE NONE SEEN
[2023-03-15 10:43] LABS: *AMPHETAMINES SCREEN URINE PRESUMTIVE POSITIVE (NEGATIVE); *BARBITURATES SCREEN URINE NEGATIVE (NEGATIVE); *BENZODIAZEPINES SCREEN URINE NEGATIVE (NEGATIVE); *COCAINE SCREEN URINE NEGATIVE (NEGATIVE); CANNABINOID URINE SCREEN NEGATIVE (NEGATIVE); ECSTASY MDMA SCREEN URINE NEGATIVE (NEGATIVE); OPIATES URINE SCREEN NEGATIVE (NEGATIVE); PHENCYCLIDINE URINE SCREEN NEGATIVE (NEGATIVE)
[2023-03-15 11:08] LABS: FINE GRANULAR CASTS URINE 0-5 /lpf; HYALINE CASTS URINE 0-5 /lpf
[2023-03-15 11:09] LABS: SQUAMOUS EPITHELIAL CELL URINE FEW /lpf (RARE/1+)
[2023-03-15] MEDS: IPRATROPIUM/ALBUTEROL 0.5-3(2.5)MG/3ML NEB HHN PRN (12:30)
[2023-03-15] MEDS: PREDNISONE 20MG TABLET PO SCH (12:39)
[2023-03-15 12:58] LABS: INR 1.2; PROTHROMBIN TIME 12.8 sec (9.6-11.0)
[2023-03-15] MEDS: FUROSEMIDE 40MG/4ML VIAL IVP SCH (17:17)
[2023-03-15] MEDS: BUDESONIDE 0.5MG/2ML NEB HHN SCH (20:33)
[2023-03-15] MEDS ORDERED: ATORVASTATIN CALCIUM 20MG TABLET PO SCH (21:00)
[2023-03-15] MEDS ORDERED: TRAZODONE HCL 50MG TABLET PO SCH (21:00)
[2023-03-15] MEDS: ENOXAPARIN 60MG/0.6ML SYR SUBCUT SCH (22:31)
[2023-03-16] VITALS (10 sets, daily range): BP systolic 119–133; BP diastolic 96–107; PULSE 79–140; RESP 14–22; TEMP 97.7–98.5; O2SAT 98–100
[2023-03-16] MEDS: IPRATROPIUM/ALBUTEROL 0.5-3(2.5)MG/3ML NEB HHN PRN (08:24)
[2023-03-16] MEDS: BUDESONIDE 0.5MG/2ML NEB HHN SCH (08:25)
[2023-03-16] MEDS: ISOSORBIDE MONONITRATE 60MG TABLET SR 24HR PO SCH (09:53)
[2023-03-16] MEDS: ASPIRIN 81MG EC TABLET PO SCH (09:53)
[2023-03-16] MEDS: METOPROLOL TARTRATE 50MG TABLET PO SCH (09:53)
[2023-03-16] MEDS: LOSARTAN 50 MG TABLET PO SCH (09:53)
[2023-03-16] MEDS: PREDNISONE 20MG TABLET PO SCH (09:54)
[2023-03-16] MEDS: ENOXAPARIN 60MG/0.6ML SYR SUBCUT SCH (09:56)
[2023-03-16] MEDS: FUROSEMIDE 40MG/4ML VIAL IVP SCH (09:56)
[2023-03-16] MEDS: QUETIAPINE FUMARATE 25MG TABLET PO SCH (10:03)
[2023-03-16] MEDS ORDERED: P20 MT ×2 (11:44)
[2023-03-16] MEDS ORDERED: NALOXONE HCL 0.4MG/ML VIAL IV PRN (17:00)
[2023-03-20] MEDS ORDERED: P20 MT (09:57)
[2023-03-20] MEDS ORDERED: FURO-151 MT (09:57)
== END 2023-03-16 18:55 | disposition home or self-care (01) | DRG 194 ==
LOC: ER 21:04 → 5EST 03-15 00:14
PROVIDERS: ADMIT Internal Medicine; ATTEND Internal Medicine
DX: I13.0 Hypertensive heart and chronic kidney disease with heart failure and stage 1 through stage 4 chronic kidney disease, or unspecified chronic kidney disease (principal); J96.20 Acute and chronic respiratory failure, unspecified whether with hypoxia or hypercapnia; I21.A1 Myocardial infarction type 2; E44.1 Mild protein-calorie malnutrition; I50.23 Acute on chronic systolic (congestive) heart failure; N17.9 Acute kidney failure, unspecified; E11.22 Type 2 diabetes mellitus with diabetic chronic kidney disease; F17.210 Nicotine dependence, cigarettes, uncomplicated; F20.9 Schizophrenia, unspecified; I48.91 Unspecified atrial fibrillation; J68.0 Bronchitis and pneumonitis due to chemicals, gases, fumes and vapors; N18.9 Chronic kidney disease, unspecified; F19.10 Other psychoactive substance abuse, uncomplicated; Z86.73 Personal history of transient ischemic attack (TIA), and cerebral infarction without residual deficits; Z88.0 Allergy status to penicillin; Z79.4 Long term (current) use of insulin; Z99.81 Dependence on supplemental oxygen; Z68.1 Body mass index [BMI] 19.9 or less, adult; Z82.49 Family history of ischemic heart disease and other diseases of the circulatory system; Z82.5 Family history of asthma and other chronic lower respiratory diseases; Z79.01 Long term (current) use of anticoagulants; Y92.89 Other specified places as the place of occurrence of the external cause; F15.188 Other stimulant abuse with other stimulant-induced disorder
CPT/HCPCS: 36415; 71045; 80053; 80305; 81003; 83880; 84484; 85025; 93005; 94640; 99291; J1650; J1940; J2930; J3490; J7512; J7626

== ENCOUNTER 2023-04-04 04:37 | Emergency (ER) | payer MEDICARE, OTHER ==
[~2023-04-04] VITALS: Ht 170.2 cm; Wt 70.0 kg
[~2023-04-04 04:37] MED LIST changes: -APIX5TAB PO; -METO-539 MT; +P20 MT
[2023-04-04 04:44] VITALS: BP 116/92; PULSE 113; RESP 16; TEMP 98.4; O2SAT 97
[2023-04-04 06:34] LABS: BG BASE EXCESS -1.2 mmol/L (-2.0-2.0); BG CARBOXYHEMOGLOBIN 0.4 % (0.5-1.5); BG DEOXYHEMOGLOBIN 4.8 % (0.0-5.0); BG FRACTION INSPIRED OXYGEN 21; BG METHEMOGLOBIN 0.2 % (0.0-1.5); BG OXYGEN SATURATION 95.2 % (92.0-98.5); BG OXYHEMOGLOBIN 94.6 % (94.0-97.0); BG PCO2 32.6 mmHg (35.0-45.0); BG PH 7.448 (7.350-7.450); BG PO2 78.2 mmHg (75.0-100.0); BG SAMPLE SITE LEFT RADIAL; BG VENT MODE ROOM AIR
== END 2023-04-04 07:19 | disposition left against medical advice (07) ==
LOC: ER 04:37
DX: R07.89 Other chest pain (principal); I11.0 Hypertensive heart disease with heart failure; I50.9 Heart failure, unspecified; E11.9 Type 2 diabetes mellitus without complications; J44.1 Chronic obstructive pulmonary disease with (acute) exacerbation; Z53.29 Procedure and treatment not carried out because of patient's decision for other reasons; Z88.0 Allergy status to penicillin; Z79.899 Other long term (current) drug therapy; Z86.73 Personal history of transient ischemic attack (TIA), and cerebral infarction without residual deficits; Z86.59 Personal history of other mental and behavioral disorders
CPT/HCPCS: 36600; 71045; 82375; 82805; 99284

== ENCOUNTER 2023-04-24 12:29 | Emergency (ER) | payer MEDICARE, OTHER ==
[~2023-04-24] VITALS: Ht 162.6 cm; Wt 55.0 kg
[~2023-04-24 12:29] MED LIST changes: +COLC0.6T66 PO; +COR3 PO; -LOSA50TA41 PO; -METO-539 PO; -P20 MT; -POTA-205 MT; -QUET25TA PO; -TRAZ-251 PO
[2023-04-24 12:32] VITALS: BP 120/80; PULSE 120; RESP 18; TEMP 98.6; O2SAT 97
[2023-04-24] MEDS ORDERED: SODIUM CHLORIDE 0.9% 500 ML IV ONE (13:45)
[2023-04-24 15:46] LABS: BASOPHILS % 0.5 % (0.0-2.0); EOSINOPHILS % 0.6 % (0.0-5.0); HEMOGLOBIN. 12.2 g/dL (12.0-16.0); LYMPHOCYTES % 17.6 % (20.0-50.0); MEAN CORPUSCULAR HEMOGLOBIN 29.2 pg (28.0-32.0); MEAN CORPUSCULAR HGB CONC 32.1 g/dL (31.0-37.0); MEAN CORPUSCULAR VOLUME 91.1 fL (81.0-99.0); MEAN PLATELET VOLUME 8.2 fl (7.4-10.4); MONOCYTES % 13.1 % (2.0-8.0); NEUTROPHILS % 68.2 % (40.0-76.0); PLATELET 225 x1000/uL (130-400); RED BLOOD CELL COUNT 4.17 mill/uL (4.2-5.4); RED CELL DISTRIBUTION WIDTH 15.8 % (11.6-14.6); WHITE BLOOD COUNT 8.3 x1000/uL (4.5-11.0)
[2023-04-24 15:55] LABS: CHLORIDE 111 mEq/L (98-107); INDEX HEMOLYSI 1 (1-3); INDEX ICTERIC 1 (1-4); INDEX LIPEMIC 1 (1-3); POTASSIUM 3.5 mEq/L (3.5-5.1); SODIUM 141 mEq/L (136-145)
[2023-04-24 16:14] LABS: ALANINE AMINOTRANSFERASE 22 IU/L (13-61); ALBUMIN 3.2 g/dL (3.4-5.0); ASPARTATE AMINOTRANSFERASE 22 IU/L (15-37); BILIRUBIN TOTAL 1.2 mg/dL (0.1-1.0); CALCIUM 8.7 mg/dL (8.5-10.1); CARBON DIOXIDE 23 mEq/L (21-32); CREATININE 2.2 mg/dL (0.6-1.3); GLUCOSE 109 mg/dL (70-105); NT PRO B-TYPE NATRIURETIC PEP 45545 pg/mL (5-125); PROTEIN TOTAL 6.7 g/dL (6.0-8.3); UREA NITROGEN BLOOD 46 mg/dL (7-21)
[2023-04-24] MEDS ORDERED: FUROSEMIDE 40MG/4ML VIAL IVP SCH (19:30)
[2023-04-24] MEDS ORDERED: DIPHENOXYLATE/ATROPINE 2.5/0.025MG TABLET PO ONE (20:15)
[2023-05-04] MEDS ORDERED: IPRA3AMP9 NEB (13:56)
[2023-05-05] MEDS ORDERED: CARV3.1242 PO (15:27)
[2023-05-05] MEDS ORDERED: QUET25TA36 PO (15:27)
[2023-05-05] MEDS ORDERED: ATOR20TA65 PO (15:27)
[2023-05-05] MEDS ORDERED: APIX5TAB PO (15:27)
[2023-05-05] MEDS ORDERED: ATROV INH (15:29)
[2023-05-05] MEDS ORDERED: FLUT1DIS3 INH (15:29)
[2023-05-05] MEDS ORDERED: P20 PO (15:30)
[2023-05-05] MEDS ORDERED: FURO40TA5 PO (15:33)
== END 2023-04-25 07:03 | disposition left against medical advice (07) ==
LOC: ER 12:29
DX: I11.0 Hypertensive heart disease with heart failure (principal); I50.9 Heart failure, unspecified; I48.91 Unspecified atrial fibrillation; E11.9 Type 2 diabetes mellitus without complications; I49.9 Cardiac arrhythmia, unspecified; F15.10 Other stimulant abuse, uncomplicated; F41.9 Anxiety disorder, unspecified; Z86.73 Personal history of transient ischemic attack (TIA), and cerebral infarction without residual deficits; Z79.899 Other long term (current) drug therapy
CPT/HCPCS: 80053; 83880; 85025; 36415; 71045; 96360; 99284; J7040; Z7610 ×2

== ENCOUNTER 2023-05-28 19:47 | Emergency (ER) | payer MEDICARE, OTHER ==
[~2023-05-28] VITALS: Ht 170.2 cm; Wt 75.0 kg
[~2023-05-28 19:47] MED LIST changes: +AMI2 PO; +AMLO5TAB88 PO; -APIX5TAB MT; +APIX5TAB PO; +ASPI-1406 PO; -ASPI-1497 PO; -BUDE90AE INH; -COLC0.6T66 PO; +COR12 PO; -COR3 PO; -ESCI-7 MT; +FURO40TA5 PO; +IPRA3AMP9 NEB; +QUET25TA36 PO
[2023-05-28 20:03] VITALS: PULSE 68
[2023-05-28 20:21] VITALS: BP 118/88; RESP 20; TEMP 98.6; O2SAT 91
[2023-05-28] MEDS ORDERED: FUROSEMIDE 40MG/4ML VIAL IV ONE (21:30)
[2023-05-28 22:57] LABS: HEMATOCRIT. 33.4 % (36.0-48.0); HEMOGLOBIN. 10.5 g/dL (12.0-16.0); MEAN CORPUSCULAR HEMOGLOBIN 29.3 pg (28.0-32.0); MEAN CORPUSCULAR HGB CONC 31.5 g/dL (31.0-37.0); MEAN CORPUSCULAR VOLUME 92.9 fL (81.0-99.0); MEAN PLATELET VOLUME 8.1 fl (7.4-10.4); PLATELET 422 x1000/uL (130-400); RED BLOOD CELL COUNT 3.59 mill/uL (4.2-5.4); RED CELL DISTRIBUTION WIDTH 16.3 % (11.6-14.6); WHITE BLOOD COUNT 5.9 x1000/uL (4.5-11.0)
[2023-05-28 23:05] LABS: DIFFERENTIAL COMMENT 1
[2023-05-28 23:08] LABS: INR 1.2; PROTHROMBIN TIME 12.7 sec (9.6-11.0)
[2023-05-28 23:14] LABS: ALANINE AMINOTRANSFERASE 28 IU/L (10-49); ALBUMIN 3.7 g/dL (3.2-4.8); ASPARTATE AMINOTRANSFERASE 29 IU/L (<34); BILIRUBIN TOTAL 0.8 mg/dL (0.1-1.0); CALCIUM 8.7 mg/dL (8.7-10.4); CARBON DIOXIDE 31 mEq/L (21-32); CHLORIDE 107 mEq/L (98-107); CREATININE 1.9 mg/dL (0.6-1.0); GLUCOSE 85 mg/dL (70-105); PROTEIN TOTAL 5.9 g/dL (6.0-8.3); SODIUM 146 mEq/L (136-145); UREA NITROGEN BLOOD 24 mg/dL (9-23)
[2023-05-28 23:20] LABS: TROPONIN I HIGH SENSITIVITY 40 ng/L (3.0-34)
[2023-05-28 23:36] LABS: ANISOCYTOSIS 1+; PLATELET ESTIMATE INCREASED
[2023-05-28 23:37] LABS: HYPOCHROMASIA 1+
[2023-05-28] MEDS ORDERED: FURO-151 MT (23:58)
[2023-05-28] MEDS ORDERED: COR12 MT (23:58)
== END 2023-05-29 00:16 | disposition home or self-care (01) ==
LOC: ER 19:47 → EDBEDREQ 21:34 → ER 05-29 00:16 → CANBEDREQ 05-30 10:17
DX: S99.921A Unspecified injury of right foot, initial encounter (principal); I49.9 Cardiac arrhythmia, unspecified; I48.91 Unspecified atrial fibrillation; F41.9 Anxiety disorder, unspecified; I11.0 Hypertensive heart disease with heart failure; I50.9 Heart failure, unspecified; F15.10 Other stimulant abuse, uncomplicated; Z86.73 Personal history of transient ischemic attack (TIA), and cerebral infarction without residual deficits; Z79.899 Other long term (current) drug therapy; X58.XXXA Exposure to other specified factors, initial encounter; Y93.89 Activity, other specified; Y92.89 Other specified places as the place of occurrence of the external cause; Y99.8 Other external cause status
CPT/HCPCS: 36415; 71045; 73620; 80053; 83880; 84484; 85025; 93005; 99285

== ENCOUNTER 2023-07-12 02:21 | Emergency (ER) | payer MEDICARE, OTHER ==
[~2023-07-12] VITALS: Ht 157.5 cm; Wt 60.0 kg
[~2023-07-12 02:21] MED LIST changes: -ALBU18HF2 IH; -AMLO5TAB88 PO; -COR12 PO; -FURO40TA5 PO; -IPRA3AMP9 NEB; +METO-539 MT; +TOBR5DRO47 LEFTEYE
[2023-07-12 03:25] VITALS: BP 118/94; TEMP 98
[2023-07-12 04:16] VITALS: PULSE 71; RESP 20; O2SAT 97
[2023-07-12] MEDS: IPRATROPIUM BROMIDE (0.02%) 0.5MG/2.5ML NEB HHN STA (04:16)
[2023-07-12] MEDS: ALBUTEROL (0.083%) 2.5MG/3ML NEB HHN STA (04:17)
[2023-07-12 05:28] LABS: TROPONIN I HIGH SENSITIVITY 36 ng/L (3.0-34)
== END 2023-07-12 06:20 | disposition home or self-care (01) ==
LOC: ER 02:21
DX: I11.0 Hypertensive heart disease with heart failure (principal); I50.9 Heart failure, unspecified; E11.9 Type 2 diabetes mellitus without complications; J44.1 Chronic obstructive pulmonary disease with (acute) exacerbation; Z88.0 Allergy status to penicillin; Z79.899 Other long term (current) drug therapy; Z98.890 Other specified postprocedural states; Z79.82 Long term (current) use of aspirin
CPT/HCPCS: 83880; 84484; 36415; 71045; 94640; 93005; 99285; Z7610 ×2

== ENCOUNTER 2023-08-02 13:23 | Inpatient (IN) | payer MEDICARE, OTHER ==
[~2023-08-02] VITALS: Ht 160 cm; Wt 73.0 kg
[~2023-08-02 13:23] MED LIST changes: -TOBR5DRO47 LEFTEYE
[2023-08-02 15:07] LABS: HEMATOCRIT. 34.2 % (36.0-48.0); HEMOGLOBIN. 10.7 g/dL (12.0-16.0); MEAN CORPUSCULAR HEMOGLOBIN 28.2 pg (28.0-32.0); MEAN CORPUSCULAR HGB CONC 31.2 g/dL (31.0-37.0); MEAN CORPUSCULAR VOLUME 90.5 fL (81.0-99.0); MEAN PLATELET VOLUME 11.5 fl (7.4-10.4); PLATELET 89 x1000/uL (130-400); RED BLOOD CELL COUNT 3.78 mill/uL (4.2-5.4); RED CELL DISTRIBUTION WIDTH 18.9 % (11.6-14.6); WHITE BLOOD COUNT 12.4 x1000/uL (4.5-11.0)
[2023-08-02 15:16] LABS: DIFFERENTIAL COMMENT 1
[2023-08-02 15:21] LABS: ALANINE AMINOTRANSFERASE 56 IU/L (10-49); ALBUMIN 2.6 g/dL (3.2-4.8); ASPARTATE AMINOTRANSFERASE 53 IU/L (<34); BILIRUBIN TOTAL 1.8 mg/dL (0.1-1.0); CALCIUM 8.4 mg/dL (8.7-10.4); CARBON DIOXIDE 16 mEq/L (21-32); CHLORIDE 107 mEq/L (98-107); CREATININE 2.8 mg/dL (0.6-1.0); GLUCOSE 151 mg/dL (70-105); NUCLEATED RED BLOOD CELLS 28 /100 WBC; PLATELET ESTIMATE SLIGHTLY DECREASED; POTASSIUM 4.8 mEq/L (3.5-5.1); PROTEIN TOTAL 4.9 g/dL (6.0-8.3); SODIUM 138 mEq/L (136-145); UREA NITROGEN BLOOD 88 mg/dL (9-23)
[2023-08-02] MEDS: ACETAMINOPHEN 325MG TABLET PO ONE (15:44)
[2023-08-02] MEDS ORDERED: BO1 TP (16:30)
[2023-08-02] MEDS: TRAMADOL 50MG TABLET PO ONE (16:30)
[2023-08-02] MEDS ORDERED: [UNRECOGNIZED DRUG - CODE] (16:30)
[2023-08-02] MEDS ORDERED: [UNRECOGNIZED DRUG - CODE] (16:30)
[2023-08-02] MEDS ORDERED: [UNRECOGNIZED DRUG - CODE] TP (16:30)
[2023-08-02] MEDS ORDERED: CEPH500C2 MT (16:30)
[2023-08-03] VITALS (7 sets, daily range): BP systolic 106–130; BP diastolic 74–94; PULSE 78–96; RESP 16–20; TEMP 95.1–98.6
[2023-08-03] MEDS ORDERED: DEXTROSE 50% WATER 50ML SYRINGE IV PRN (07:15)
[2023-08-03] MEDS: BLOOD SUGAR DIAGNOSTIC STRIP TEST SCH (07:20)
[2023-08-03] MEDS: INSULIN LISPRO 100 UNITS/ML SUBCUT SCH (07:50)
[2023-08-03 08:12] LABS: HEMATOCRIT. 36.6 % (36.0-48.0); HEMOGLOBIN. 11.3 g/dL (12.0-16.0); MEAN CORPUSCULAR HEMOGLOBIN 27.7 pg (28.0-32.0); MEAN CORPUSCULAR HGB CONC 30.8 g/dL (31.0-37.0); MEAN CORPUSCULAR VOLUME 89.9 fL (81.0-99.0); MEAN PLATELET VOLUME 11.5 fl (7.4-10.4); PLATELET 69 x1000/uL (130-400); RED BLOOD CELL COUNT 4.07 mill/uL (4.2-5.4); RED CELL DISTRIBUTION WIDTH 19.8 % (11.6-14.6); WHITE BLOOD COUNT 14.5 x1000/uL (4.5-11.0)
[2023-08-03 08:17] LABS: DIFFERENTIAL COMMENT 1
[2023-08-03 08:48] LABS: CALCIUM 8.3 mg/dL (8.7-10.4); CARBON DIOXIDE 22 mEq/L (21-32); CHLORIDE 108 mEq/L (98-107); CHOLESTEROL 71 mg/dL (<200); CREATININE 2.9 mg/dL (0.6-1.0); GLUCOSE 96 mg/dL (70-105); HDL CHOLESTEROL < 20 mg/dL (>65); LDL CHOLESTEROL 37 mg/dL (5-100); POTASSIUM 4.4 mEq/L (3.5-5.1); SODIUM 141 mEq/L (136-145); TRIGLYCERIDE 91 mg/dL (0-150); UREA NITROGEN BLOOD 93 mg/dL (9-23)
[2023-08-03] MEDS: METOPROLOL TARTRATE 50MG TABLET PO SCH (09:24)
[2023-08-03] MEDS: ASPIRIN 81MG TABLET PO SCH (09:24)
[2023-08-03] MEDS: VANCOMYCIN 1G PREMIX 200 ML IV NR (09:25)
[2023-08-03] MEDS ORDERED: MEROPENEM 1G/100ML 100 ML IV SCH (14:00)
[2023-08-03] MEDS: FUROSEMIDE 40MG/4ML VIAL IVP SCH (14:10)
[2023-08-03] MEDS: MEROPENEM 500MG/50ML IV SCH (14:10)
[2023-08-03 16:13] LABS: NUCLEATED RED BLOOD CELLS 6 /100 WBC; PLATELET ESTIMATE MARKEDLY DECREASED
[2023-08-03 16:14] LABS: ANISOCYTOSIS 1+
[2023-08-03] MEDS: ATORVASTATIN CALCIUM 20MG TABLET PO SCH (20:14)
[2023-08-03] MEDS: QUETIAPINE FUMARATE 25MG TABLET PO SCH (20:15)
[2023-08-03] MEDS ORDERED: NALOXONE HCL 0.4MG/ML VIAL IV PRN (21:15)
[2023-08-03] MEDS: IPRATROPIUM/ALBUTEROL 0.5-3(2.5)MG/3ML NEB HHN SCH (21:30)
[2023-08-04] VITALS (7 sets, daily range): BP systolic 94–113; BP diastolic 63–76; PULSE 60–111; RESP 18–20; TEMP 94.6–97.7
[2023-08-04] MEDS: HYDROCODONE/ACETAMINOPHEN 10/325MG TABLET PO PRN (04:56)
[2023-08-04] MEDS: APIXABAN 2.5 MG TABLET PO SCH (10:26)
[2023-08-04 17:51] LABS: HEMOGLOBIN. 10.8 g/dL (12.0-16.0); MEAN CORPUSCULAR HEMOGLOBIN 28.2 pg (28.0-32.0); MEAN CORPUSCULAR HGB CONC 29.9 g/dL (31.0-37.0); MEAN CORPUSCULAR VOLUME 94.5 fL (81.0-99.0); MEAN PLATELET VOLUME 11.8 fl (7.4-10.4); PLATELET 51 x1000/uL (130-400); RED BLOOD CELL COUNT 3.81 mill/uL (4.2-5.4); RED CELL DISTRIBUTION WIDTH 19.6 % (11.6-14.6); WHITE BLOOD COUNT 11.4 x1000/uL (4.5-11.0)
[2023-08-04 18:08] LABS: CALCIUM 7.9 mg/dL (8.7-10.4); CARBON DIOXIDE 17 mEq/L (21-32); CHLORIDE 110 mEq/L (98-107); CREATININE 2.7 mg/dL (0.6-1.0); GLUCOSE 117 mg/dL (70-105); POTASSIUM 4.7 mEq/L (3.5-5.1); SODIUM 141 mEq/L (136-145); UREA NITROGEN BLOOD 70 mg/dL (9-23)
[2023-08-04 18:26] LABS: DIFFERENTIAL COMMENT 1
[2023-08-04 19:32] LABS: ANISOCYTOSIS 1+; NUCLEATED RED BLOOD CELLS 3 /100 WBC; PLATELET ESTIMATE DECREASED
[2023-08-04] MEDS ORDERED: VANCOMYCIN 1G PREMIX 200 ML IV NR (20:00)
[2023-08-04] MEDS: VANCOMYCIN 1G PREMIX 200 ML IV NR (21:34)
[2023-08-05] VITALS (8 sets, daily range): BP systolic 96–128; BP diastolic 56–87; PULSE 54–94; RESP 18–20; TEMP 96.6–98.9; O2SAT 94–95
[2023-08-05] MEDS ORDERED: DOXY100C5 MT (11:27)
[2023-08-05] MEDS: VANCOMYCIN 1.25GM PMX (XELLIA) 250 ML IV NR (20:37)
[2023-08-06] VITALS (8 sets, daily range): BP systolic 90–126; BP diastolic 56–90; PULSE 53–116; RESP 18–20; TEMP 96.7–97.4; O2SAT 94–99
[2023-08-06 18:56] LABS: BASOPHILS % 0.2 % (0.0-2.0); EOSINOPHILS % 0.2 % (0.0-5.0); HEMATOCRIT. 37.3 % (36.0-48.0); HEMOGLOBIN. 11.3 g/dL (12.0-16.0); LYMPHOCYTES % 3.8 % (20.0-50.0); MEAN CORPUSCULAR HEMOGLOBIN 27.5 pg (28.0-32.0); MEAN CORPUSCULAR HGB CONC 30.3 g/dL (31.0-37.0); MEAN CORPUSCULAR VOLUME 90.7 fL (81.0-99.0); MEAN PLATELET VOLUME 11.9 fl (7.4-10.4); MONOCYTES % 6.6 % (2.0-8.0); NEUTROPHILS % 89.2 % (40.0-76.0); RED BLOOD CELL COUNT 4.12 mill/uL (4.2-5.4); RED CELL DISTRIBUTION WIDTH 19.7 % (11.6-14.6); WHITE BLOOD COUNT 16.7 x1000/uL (4.5-11.0)
[2023-08-06 19:05] LABS: PLATELET 45 x1000/uL (130-400)
[2023-08-06 19:06] LABS: DIFFERENTIAL COMMENT 1
[2023-08-06 19:18] LABS: ALANINE AMINOTRANSFERASE 31 IU/L (10-49); ALBUMIN 2.4 g/dL (3.2-4.8); ASPARTATE AMINOTRANSFERASE 22 IU/L (<34); BILIRUBIN TOTAL 2.4 mg/dL (0.1-1.0); CALCIUM 8.1 mg/dL (8.7-10.4); CARBON DIOXIDE 21 mEq/L (21-32); CHLORIDE 110 mEq/L (98-107); CREATININE 2.4 mg/dL (0.6-1.0); GLUCOSE 119 mg/dL (70-105); POTASSIUM 4.3 mEq/L (3.5-5.1); PROTEIN TOTAL 4.6 g/dL (6.0-8.3); SODIUM 142 mEq/L (136-145); UREA NITROGEN BLOOD 80 mg/dL (9-23)
[2023-08-06] MEDS: VANCOMYCIN 750MG PREMIX 150 ML IV NR (20:47)
[2023-08-07 04:00] VITALS: BP 111/73; PULSE 113; RESP 18; TEMP 96
[2023-08-07 08:00] VITALS: BP 99/63; PULSE 103; RESP 18; TEMP 95
[2023-08-07 12:00] VITALS: BP 101/75; PULSE 81; RESP 19; TEMP 96.7
[2023-08-07 16:00] VITALS: BP 92/73; PULSE 74; RESP 20; TEMP 95.7
[2023-08-07 20:00] VITALS: BP 98/70; PULSE 77; RESP 18; TEMP 98.1
[2023-08-07] MEDS: VANCOMYCIN 750MG PREMIX 150 ML IV NR (22:56)
[2023-08-07 23:31] VITALS: PULSE 52; RESP 20; O2SAT 95
[2023-08-08] VITALS (7 sets, daily range): BP systolic 90–132; BP diastolic 64–85; PULSE 72–104; RESP 18–21; TEMP 96.1–97.9
[2023-08-08 20:28] LABS: HEMATOCRIT. 34.5 % (36.0-48.0); HEMOGLOBIN. 10.8 g/dL (12.0-16.0); MEAN CORPUSCULAR HEMOGLOBIN 28.1 pg (28.0-32.0); MEAN CORPUSCULAR HGB CONC 31.2 g/dL (31.0-37.0); MEAN CORPUSCULAR VOLUME 90.2 fL (81.0-99.0); MEAN PLATELET VOLUME 15.9 fl (7.4-10.4); RED BLOOD CELL COUNT 3.82 mill/uL (4.2-5.4); RED CELL DISTRIBUTION WIDTH 19.3 % (11.6-14.6); WHITE BLOOD COUNT 19.2 x1000/uL (4.5-11.0)
[2023-08-08 20:32] LABS: DIFFERENTIAL COMMENT 1; PLATELET 35 x1000/uL (130-400)
[2023-08-08 20:42] LABS: CALCIUM 7.9 mg/dL (8.7-10.4); CREATININE 2.3 mg/dL (0.6-1.0); POTASSIUM 4.5 mEq/L (3.5-5.1)
[2023-08-08 22:08] LABS: ANISOCYTOSIS 1+; NUCLEATED RED BLOOD CELLS 1 /100 WBC; PLATELET ESTIMATE MARKEDLY DECREASED
[2023-08-08] MEDS: VANCOMYCIN 500MG PREMIX 100 ML IV NR (22:18)
[2023-08-09] VITALS: BP 98/67; PULSE 58; RESP 18; TEMP 96.6
[2023-08-09 04:00] VITALS: BP 110/85; PULSE 90; RESP 18; TEMP 96.7
[2023-08-09] MEDS: HYDROCODONE/ACETAMINOPHEN 10/325MG TABLET PO PRN (06:00)
[2023-08-09 08:00] VITALS: BP 99/73; PULSE 106; RESP 20; TEMP 97.4
[2023-08-09 12:00] VITALS: BP 108/84; PULSE 108; RESP 20; TEMP 96.9
[2023-08-09 16:00] VITALS: BP 110/68; PULSE 105; RESP 21; TEMP 97.2
[2023-08-09] MEDS ORDERED: NALOXONE HCL 0.4MG/ML VIAL IV PRN (16:15)
[2023-08-09 20:00] VITALS: BP 103/61; PULSE 78; RESP 20; TEMP 97
[2023-08-10] VITALS: BP 94/76; PULSE 94; RESP 20; TEMP 97
[2023-08-10 04:00] VITALS: BP 95/68; PULSE 80; RESP 20; TEMP 97
[2023-08-10 08:00] VITALS: BP 104/65; PULSE 81; RESP 20; TEMP 97.5
[2023-08-10] MEDS: FOLIC ACID/VITAMIN B COMP W-C TABLET PO SCH (09:17)
[2023-08-10 12:00] VITALS: BP 95/65; PULSE 95; RESP 20; TEMP 97.5
[2023-08-10 16:00] VITALS: BP 105/60; PULSE 64; RESP 20; TEMP 98.2
[2023-08-10 20:00] VITALS: BP 110/88; PULSE 71; RESP 18; TEMP 97
[2023-08-10 21:54] LABS: HEMATOCRIT. 31.3 % (36.0-48.0); HEMOGLOBIN. 9.4 g/dL (12.0-16.0); MEAN CORPUSCULAR HEMOGLOBIN 27.8 pg (28.0-32.0); MEAN CORPUSCULAR VOLUME 92.6 fL (81.0-99.0); MEAN PLATELET VOLUME 13.8 fl (7.4-10.4); RED BLOOD CELL COUNT 3.38 mill/uL (4.2-5.4); RED CELL DISTRIBUTION WIDTH 18.1 % (11.6-14.6); WHITE BLOOD COUNT 21.7 x1000/uL (4.5-11.0)
[2023-08-10 21:59] LABS: DIFFERENTIAL COMMENT 1; PLATELET 30 x1000/uL (130-400)
[2023-08-10 22:13] LABS: CALCIUM 7.7 mg/dL (8.7-10.4); CREATININE 2.1 mg/dL (0.6-1.0)
[2023-08-10 23:06] LABS: ANISOCYTOSIS 1+; NUCLEATED RED BLOOD CELLS 2 /100 WBC; PLATELET ESTIMATE MARKEDLY DECREASED
[2023-08-11 04:00] VITALS: BP 115/87; PULSE 66; RESP 16; TEMP 97.1
[2023-08-11 08:00] VITALS: BP 94/64; PULSE 102; RESP 18; TEMP 98.7
[2023-08-11] MEDS: LORAZEPAM 2MG/ML INJ IV NR (09:09)
[2023-08-11 12:00] VITALS: BP 92/74; PULSE 87; RESP 20; TEMP 98.6
[2023-08-11] MEDS ORDERED: MENTHOL/LANOLIN/CALAMINE/ZN OX OINT 71GM TOP PRN (15:00)
[2023-08-11 16:00] VITALS: BP 101/67; PULSE 92; RESP 20; TEMP 98.6
[2023-08-11] MEDS: NYSTATIN POWDER 15GM TOP SCH (17:00)
[2023-08-11 20:00] VITALS: BP 98/67; PULSE 67; RESP 16; TEMP 97
[2023-08-12] VITALS: BP 111/79; PULSE 91; RESP 18; TEMP 97.3
[2023-08-12 04:00] VITALS: BP 94/65; PULSE 97; RESP 16; TEMP 97.3
[2023-08-12 08:00] VITALS: BP 104/71; PULSE 86; RESP 18; TEMP 96.7
[2023-08-12 08:03] LABS: HEMATOCRIT. 28.4 % (36.0-48.0); HEMOGLOBIN. 8.9 g/dL (12.0-16.0); MEAN CORPUSCULAR HEMOGLOBIN 27.8 pg (28.0-32.0); MEAN CORPUSCULAR HGB CONC 31.4 g/dL (31.0-37.0); RED BLOOD CELL COUNT 3.21 mill/uL (4.2-5.4); RED CELL DISTRIBUTION WIDTH 18.1 % (11.6-14.6)
[2023-08-12 08:47] LABS: CALCIUM 7.8 mg/dL (8.7-10.4); CREATININE 1.9 mg/dL (0.6-1.0); POTASSIUM 4.4 mEq/L (3.5-5.1)
[2023-08-12 08:51] LABS: DIFFERENTIAL COMMENT 1
[2023-08-12 08:52] LABS: MEAN CORPUSCULAR VOLUME 88.4 fL (81.0-99.0)
[2023-08-12 10:02] LABS: NUCLEATED RED BLOOD CELLS 1 /100 WBC
[2023-08-12 10:03] LABS: ANISOCYTOSIS 2+; HYPOCHROMASIA 1+; TARGET CELLS 1+
[2023-08-12 10:05] LABS: PLATELET ESTIMATE MARKEDLY DECREASED
[2023-08-12 10:08] LABS: PLATELET 29 x1000/uL (130-400)
[2023-08-12 12:00] VITALS: BP 102/57; PULSE 83; RESP 18; TEMP 96.3
[2023-08-12] MEDS: VANCOMYCIN 1G PREMIX 200 ML IV NR (14:00)
[2023-08-12] MEDS: CEFEPIME 2,000 MG in DEXT 5% WATER 100 ML IV SCH (14:00)
[2023-08-12 16:00] VITALS: BP 86/63; PULSE 78; RESP 18; TEMP 96.1
[2023-08-12 20:00] VITALS: BP 100/83; PULSE 73; RESP 20; TEMP 96.1
[2023-08-13] VITALS: BP 94/62; PULSE 111; RESP 20; TEMP 95
[2023-08-13 04:00] VITALS: BP 84/67; PULSE 57; RESP 20; TEMP 96.3
[2023-08-13 08:00] VITALS: BP 96/48; PULSE 72; RESP 18; TEMP 96.7
[2023-08-13 08:09] LABS: HEMATOCRIT. 31.8 % (36.0-48.0); HEMOGLOBIN. 9.9 g/dL (12.0-16.0); MEAN CORPUSCULAR HEMOGLOBIN 27.8 pg (28.0-32.0); MEAN CORPUSCULAR HGB CONC 31.2 g/dL (31.0-37.0); MEAN CORPUSCULAR VOLUME 89.1 fL (81.0-99.0); RED BLOOD CELL COUNT 3.57 mill/uL (4.2-5.4); RED CELL DISTRIBUTION WIDTH 18.6 % (11.6-14.6); WHITE BLOOD COUNT 14.7 x1000/uL (4.5-11.0)
[2023-08-13 08:21] LABS: CALCIUM 7.8 mg/dL (8.7-10.4); CREATININE 1.8 mg/dL (0.6-1.0); POTASSIUM 4.2 mEq/L (3.5-5.1)
[2023-08-13 08:33] LABS: DIFFERENTIAL COMMENT 1
[2023-08-13 10:15] LABS: NUCLEATED RED BLOOD CELLS 1 /100 WBC
[2023-08-13 10:16] LABS: ANISOCYTOSIS 2+; HYPOCHROMASIA 1+
[2023-08-13 10:20] LABS: MEAN PLATELET VOLUME 13.4 fl (7.4-10.4)
[2023-08-13 10:22] LABS: PLATELET 31 x1000/uL (130-400)
[2023-08-13 10:23] LABS: PLATELET ESTIMATE MARKEDLY DECREASED
[2023-08-13 12:00] VITALS: BP 84/34; PULSE 72; RESP 18; TEMP 97.6
[2023-08-13 16:00] VITALS: BP 89/57; PULSE 65; RESP 19; TEMP 96.3
[2023-08-14 08:00] VITALS: BP 130/95; PULSE 82; RESP 20; TEMP 95.6
[2023-08-14 12:00] VITALS: BP 106/82; PULSE 109; RESP 19; TEMP 96.7
[2023-08-14 16:00] VITALS: BP 90/69; PULSE 51; RESP 20; TEMP 97.9
[2023-08-14 18:25] LABS: HEMATOCRIT. 27.8 % (36.0-48.0); HEMOGLOBIN. 8.5 g/dL (12.0-16.0); MEAN CORPUSCULAR HEMOGLOBIN 27.2 pg (28.0-32.0); MEAN CORPUSCULAR HGB CONC 30.6 g/dL (31.0-37.0); MEAN CORPUSCULAR VOLUME 88.9 fL (81.0-99.0); MEAN PLATELET VOLUME 14.7 fl (7.4-10.4); RED BLOOD CELL COUNT 3.13 mill/uL (4.2-5.4); RED CELL DISTRIBUTION WIDTH 18.4 % (11.6-14.6); WHITE BLOOD COUNT 17.1 x1000/uL (4.5-11.0)
[2023-08-14 18:29] LABS: DIFFERENTIAL COMMENT 1; PLATELET 34 x1000/uL (130-400)
[2023-08-14 18:45] LABS: CALCIUM 7.6 mg/dL (8.7-10.4); CREATININE 1.7 mg/dL (0.6-1.0); POTASSIUM 3.8 mEq/L (3.5-5.1)
[2023-08-14 19:59] LABS: ANISOCYTOSIS 1+; PLATELET ESTIMATE MARKEDLY DECREASED
[2023-08-14 20:00] VITALS: BP 101/63; PULSE 80; RESP 19; TEMP 96.2
[2023-08-14] MEDS: HYDROCODONE/ACETAMINOPHEN 5/325MG TABLET PO PRN (20:58)
[2023-08-15 01:36] VITALS: BP 130/92; PULSE 68; RESP 18; TEMP 98.7
[2023-08-15 04:00] VITALS: BP 122/94; PULSE 78; RESP 18; TEMP 97.8
[2023-08-15 06:25] LABS: CALCIUM 7.6 mg/dL (8.7-10.4); CREATININE 1.7 mg/dL (0.6-1.0)
[2023-08-15 08:00] VITALS: BP 102/63; PULSE 80; RESP 19; TEMP 97.9
[2023-08-15 12:00] VITALS: BP 93/70; PULSE 102; RESP 17; TEMP 97.5
[2023-08-15 16:00] VITALS: BP 92/60; PULSE 82; RESP 20; TEMP 97.2
[2023-08-15 20:00] VITALS: BP 90/68; PULSE 60; RESP 18; TEMP 95.6
[2023-08-16] VITALS: BP 99/52; PULSE 74; RESP 20; TEMP 97.9
[2023-08-16 04:00] VITALS: BP 126/84; PULSE 102; RESP 19; TEMP 99.2
[2023-08-16 05:55] LABS: HEMOGLOBIN. 8.1 g/dL (12.0-16.0); MEAN CORPUSCULAR HEMOGLOBIN 27.4 pg (28.0-32.0); MEAN CORPUSCULAR HGB CONC 31.2 g/dL (31.0-37.0); MEAN PLATELET VOLUME 9.4 fl (7.4-10.4); RED BLOOD CELL COUNT 2.96 mill/uL (4.2-5.4); RED CELL DISTRIBUTION WIDTH 18.4 % (11.6-14.6); WHITE BLOOD COUNT 11.9 x1000/uL (4.5-11.0)
[2023-08-16 07:40] LABS: DIFFERENTIAL COMMENT 1
[2023-08-16 07:41] LABS: PLATELET 22 x1000/uL (130-400)
[2023-08-16 12:00] VITALS: BP 82/64; PULSE 68; RESP 20; TEMP 98.2
[2023-08-16 13:02] LABS: NUCLEATED RED BLOOD CELLS 1 /100 WBC; PLATELET ESTIMATE MARKEDLY DECREASED; SMUDGE CELLS FEW
[2023-08-16 13:03] LABS: HYPOCHROMASIA 1+
[2023-08-16 13:04] LABS: ANISOCYTOSIS 2+; TEAR DROP CELLS FEW
[2023-08-16 16:00] VITALS: BP 101/69; PULSE 102; RESP 20; TEMP 98.4
[2023-08-16 20:00] VITALS: BP 104/67; PULSE 84; RESP 20; TEMP 97
[2023-08-16] MEDS: VANCOMYCIN 750MG PREMIX 150 ML IV NR (21:57)
[2023-08-17] VITALS: BP 110/72; PULSE 80; RESP 20; TEMP 97.5
[2023-08-17 04:00] VITALS: BP 105/82; PULSE 91; RESP 19; TEMP 96.4
[2023-08-17 08:00] VITALS: BP 92/61; PULSE 84; RESP 20; TEMP 97.6
[2023-08-17 12:00] VITALS: BP 101/63; PULSE 116; RESP 20; TEMP 96.4
[2023-08-17 12:08] LABS: HEMATOCRIT. 25.5 % (36.0-48.0); HEMOGLOBIN. 8.2 g/dL (12.0-16.0); MEAN CORPUSCULAR HGB CONC 32.1 g/dL (31.0-37.0); MEAN CORPUSCULAR VOLUME 87.2 fL (81.0-99.0); MEAN PLATELET VOLUME 13.2 fl (7.4-10.4); RED BLOOD CELL COUNT 2.92 mill/uL (4.2-5.4); RED CELL DISTRIBUTION WIDTH 18.6 % (11.6-14.6)
[2023-08-17 12:12] LABS: ALANINE AMINOTRANSFERASE 36 IU/L (10-49); ALBUMIN 2.2 g/dL (3.2-4.8); ASPARTATE AMINOTRANSFERASE 30 IU/L (<34); BILIRUBIN TOTAL 1.6 mg/dL (0.1-1.0); CALCIUM 7.7 mg/dL (8.7-10.4); CARBON DIOXIDE 23 mEq/L (21-32); CHLORIDE 102 mEq/L (98-107); CREATININE 1.7 mg/dL (0.6-1.0); GLUCOSE 92 mg/dL (70-105); POTASSIUM 3.9 mEq/L (3.5-5.1); PROTEIN TOTAL 4.5 g/dL (6.0-8.3); SODIUM 133 mEq/L (136-145); UREA NITROGEN BLOOD 73 mg/dL (9-23)
[2023-08-17 12:25] LABS: DIFFERENTIAL COMMENT 1
[2023-08-17 12:29] LABS: PLATELET 33 x1000/uL (130-400)
[2023-08-17 13:14] LABS: NUCLEATED RED BLOOD CELLS 1 /100 WBC; PLATELET ESTIMATE MARKEDLY DECREASED
[2023-08-17 13:15] LABS: HYPOCHROMASIA 1+
[2023-08-17 13:16] LABS: ANISOCYTOSIS 2+
[2023-08-17 16:00] VITALS: BP 91/68; PULSE 42; RESP 20; TEMP 96.5
[2023-08-17] MEDS ORDERED: NALOXONE HCL 0.4MG/ML VIAL IV PRN (18:45)
[2023-08-17 20:00] VITALS: BP 142/118; PULSE 50; RESP 15; TEMP 97.5
[2023-08-17] MEDS ORDERED: IPRATROPIUM/ALBUTEROL 0.5-3(2.5)MG/3ML NEB HHN PRN (20:45)
[2023-08-17] MEDS: CEFEPIME 2,000 MG in DEXT 5% WATER 100 ML IV SCH (20:47)
[2023-08-17 21:12] LABS: BG BASE EXCESS -5.2 mmol/L (-2.0-2.0); BG CARBOXYHEMOGLOBIN 0.7 % (0.5-1.5); BG DEOXYHEMOGLOBIN 0.2 % (0.0-5.0); BG FRACTION INSPIRED OXYGEN 100; BG HCO3 ACT 19.4 mmol/L (22.0-26.0); BG METHEMOGLOBIN 0.3 % (0.0-1.5); BG OXYGEN SATURATION 99.8 % (92.0-98.5); BG OXYHEMOGLOBIN 98.8 % (94.0-97.0); BG PCO2 34.1 mmHg (35.0-45.0); BG PH 7.373 (7.350-7.450); BG PO2 426.3 mmHg (75.0-100.0); BG SAMPLE SITE LEFT RADIAL; BG TOTAL HEMOGLOBIN 8.5 g/dL (12.0-18.0); BG VENT MODE MASK - NRB
[2023-08-17] MEDS: FUROSEMIDE 40MG/4ML VIAL IVP NR (21:13)
[2023-08-17] MEDS: NITROGLYCERIN 0.4MG TABLET SL SL NR (21:13)
[2023-08-17] MEDS ORDERED: FUROSEMIDE 40MG/4ML VIAL IVP SCH (21:15)
[2023-08-18] VITALS (8 sets, daily range): BP systolic 74–127; BP diastolic 45–89; PULSE 72–108; RESP 14–27; TEMP 96.3–97
[2023-08-18 00:53] LABS: CREATINE KINASE MB FRACTION 16.7 ng/mL (0.5-3.6)
[2023-08-18 01:27] LABS: TROPONIN I HIGH SENSITIVITY 39 ng/L (3.0-34)
[2023-08-18 06:52] LABS: CREATININE 1.8 mg/dL (0.6-1.0)
[2023-08-18 08:02] LABS: HEMATOCRIT. 27.1 % (36.0-48.0); HEMOGLOBIN. 8.5 g/dL (12.0-16.0); MEAN CORPUSCULAR HEMOGLOBIN 27.6 pg (28.0-32.0); MEAN CORPUSCULAR HGB CONC 31.2 g/dL (31.0-37.0); MEAN CORPUSCULAR VOLUME 88.3 fL (81.0-99.0); MEAN PLATELET VOLUME 15.5 fl (7.4-10.4); RED BLOOD CELL COUNT 3.07 mill/uL (4.2-5.4); RED CELL DISTRIBUTION WIDTH 18.2 % (11.6-14.6); WHITE BLOOD COUNT 12.3 x1000/uL (4.5-11.0)
[2023-08-18 08:04] LABS: DIFFERENTIAL COMMENT 1
[2023-08-18 09:46] LABS: NUCLEATED RED BLOOD CELLS 5 /100 WBC; PLATELET ESTIMATE MARKEDLY DECREASED
[2023-08-18 09:48] LABS: ANISOCYTOSIS 2+
[2023-08-18] MEDS: SODIUM CHLORIDE 0.9% 500 ML IV NR (11:55)
[2023-08-18 13:40] LABS: BG BASE EXCESS -8.7 mmol/L (-2.0-2.0); BG CARBOXYHEMOGLOBIN 0.3 % (0.5-1.5); BG DEOXYHEMOGLOBIN 0.7 % (0.0-5.0); BG FRACTION INSPIRED OXYGEN 80; BG HCO3 ACT 15.5 mmol/L (22.0-26.0); BG METHEMOGLOBIN 0.4 % (0.0-1.5); BG OXYGEN SATURATION 99.3 % (92.0-98.5); BG OXYHEMOGLOBIN 98.6 % (94.0-97.0); BG PCO2 27.6 mmHg (35.0-45.0); BG PH 7.368 (7.350-7.450); BG PO2 251.5 mmHg (75.0-100.0); BG SAMPLE SITE RIGHT RADIAL; BG TOTAL HEMOGLOBIN 8.5 g/dL (12.0-18.0); BG VENT MODE MASK - NRB-PARTIAL
[2023-08-18] MEDS: LORAZEPAM 2MG/ML INJ IV NR (13:54)
[2023-08-18] MEDS: MIDODRINE HCL 5MG TABLET PO SCH (17:30)
[2023-08-19] VITALS (14 sets, daily range): BP systolic 84–109; BP diastolic 58–86; PULSE 76–118; RESP 12–27; TEMP 96.5–97.5
[2023-08-19 17:50] LABS: CALCIUM 7.6 mg/dL (8.7-10.4); CREATININE 1.8 mg/dL (0.6-1.0); POTASSIUM 3.8 mEq/L (3.5-5.1)
[2023-08-19 17:51] LABS: HEMATOCRIT. 25.9 % (36.0-48.0); MEAN CORPUSCULAR HEMOGLOBIN 27.2 pg (28.0-32.0); MEAN CORPUSCULAR HGB CONC 30.9 g/dL (31.0-37.0); MEAN CORPUSCULAR VOLUME 88.1 fL (81.0-99.0); MEAN PLATELET VOLUME 12.2 fl (7.4-10.4); RED BLOOD CELL COUNT 2.94 mill/uL (4.2-5.4); RED CELL DISTRIBUTION WIDTH 18.4 % (11.6-14.6); WHITE BLOOD COUNT 15.1 x1000/uL (4.5-11.0)
[2023-08-19 17:54] LABS: DIFFERENTIAL COMMENT 1
[2023-08-19 18:00] LABS: PLATELET 47 x1000/uL (130-400)
[2023-08-19 21:36] LABS: ANISOCYTOSIS 2+; PLATELET ESTIMATE MARKEDLY DECREASED
[2023-08-19 21:37] LABS: HYPOCHROMASIA 1+
[2023-08-20] VITALS (24 sets, daily range): BP systolic 71–112; BP diastolic 38–86; PULSE 80–113; RESP 14–24; TEMP 96–97.9
[2023-08-20 06:17] LABS: CALCIUM 7.5 mg/dL (8.7-10.4); CREATININE 1.9 mg/dL (0.6-1.0); POTASSIUM 3.7 mEq/L (3.5-5.1)
[2023-08-20 06:27] LABS: HEMATOCRIT. 24.5 % (36.0-48.0); HEMOGLOBIN. 7.6 g/dL (12.0-16.0); MEAN CORPUSCULAR HEMOGLOBIN 27.8 pg (28.0-32.0); MEAN CORPUSCULAR HGB CONC 30.9 g/dL (31.0-37.0); MEAN CORPUSCULAR VOLUME 89.8 fL (81.0-99.0); MEAN PLATELET VOLUME 12.4 fl (7.4-10.4); RED BLOOD CELL COUNT 2.73 mill/uL (4.2-5.4); RED CELL DISTRIBUTION WIDTH 18.7 % (11.6-14.6); WHITE BLOOD COUNT 13.4 x1000/uL (4.5-11.0)
[2023-08-20 06:44] LABS: DIFFERENTIAL COMMENT 1; PLATELET 47 x1000/uL (130-400)
[2023-08-20 07:18] LABS: PLATELET 47 x1000/uL (130-400)
[2023-08-20] MEDS: MIDODRINE HCL 5MG TABLET PO SCH ×2 (09:45→13:02)
[2023-08-20] MEDS: SODIUM CHLORIDE 0.9% 250 ML IV SCH (11:08)
[2023-08-20 12:58] LABS: ANISOCYTOSIS 2+; NUCLEATED RED BLOOD CELLS 2 /100 WBC; PLATELET ESTIMATE MARKEDLY DECREASED
[2023-08-21] VITALS (13 sets, daily range): BP systolic 88–112; BP diastolic 66–87; PULSE 91–116; RESP 15–21; TEMP 96.4–98.5
[2023-08-21 02:33] LABS: HEMATOCRIT 26.1 % (36.0-48.0); HEMOGLOBIN 8.4 g/dL (12.0-16.0)
[2023-08-21] MEDS: MENTHOL/LANOLIN/CALAMINE/ZN OX OINT 71GM TOP SCH (18:02)
[2023-08-22] VITALS (10 sets, daily range): BP systolic 91–115; BP diastolic 68–97; PULSE 93–118; RESP 13–22; TEMP 97.3–98
[2023-08-23] VITALS (10 sets, daily range): BP systolic 101–119; BP diastolic 73–94; PULSE 94–115; RESP 14–21; TEMP 97.3–97.8
[2023-08-23 13:06] LABS: HEMATOCRIT. 27.2 % (36.0-48.0); HEMOGLOBIN. 8.4 g/dL (12.0-16.0); MEAN CORPUSCULAR HEMOGLOBIN 28.1 pg (28.0-32.0); MEAN CORPUSCULAR HGB CONC 31.1 g/dL (31.0-37.0); MEAN CORPUSCULAR VOLUME 90.5 fL (81.0-99.0); MEAN PLATELET VOLUME 12.2 fl (7.4-10.4); PLATELET 61 x1000/uL (130-400); RED CELL DISTRIBUTION WIDTH 18.7 % (11.6-14.6)
[2023-08-23 13:19] LABS: DIFFERENTIAL COMMENT 1
[2023-08-23 13:27] LABS: CALCIUM 8.2 mg/dL (8.7-10.4); CREATININE 2.1 mg/dL (0.6-1.0); POTASSIUM 3.7 mEq/L (3.5-5.1)
[2023-08-23 14:09] LABS: ANISOCYTOSIS 2+; NUCLEATED RED BLOOD CELLS 1 /100 WBC; PLATELET ESTIMATE DECREASED
== END 2023-08-23 19:54 | DRG 351 ==
LOC: ER 13:23 → 6EST 18:24 → EDBEDREQ 18:28 → EDBEDREQTM 18:28 → 5EST 08-17 22:18
PROVIDERS: ADMIT Internal Medicine; ATTEND Internal Medicine
PROC: 30233N1 Transfusion of Nonautologous Red Blood Cells into Peripheral Vein, Percutaneous Approach (ICD-10-PCS; principal; 2023-08-20)
DX: S81.802A Unspecified open wound, left lower leg, initial encounter (principal); J96.20 Acute and chronic respiratory failure, unspecified whether with hypoxia or hypercapnia; I50.23 Acute on chronic systolic (congestive) heart failure; N17.9 Acute kidney failure, unspecified; D69.6 Thrombocytopenia, unspecified; I42.9 Cardiomyopathy, unspecified; L97.822 Non-pressure chronic ulcer of other part of left lower leg with fat layer exposed; E11.22 Type 2 diabetes mellitus with diabetic chronic kidney disease; D72.829 Elevated white blood cell count, unspecified; I13.0 Hypertensive heart and chronic kidney disease with heart failure and stage 1 through stage 4 chronic kidney disease, or unspecified chronic kidney disease; F17.210 Nicotine dependence, cigarettes, uncomplicated; J44.9 Chronic obstructive pulmonary disease, unspecified; N18.9 Chronic kidney disease, unspecified; I48.91 Unspecified atrial fibrillation; F15.90 Other stimulant use, unspecified, uncomplicated; F20.9 Schizophrenia, unspecified; R26.9 Unspecified abnormalities of gait and mobility; M71.22 Synovial cyst of popliteal space [Baker], left knee; E11.51 Type 2 diabetes mellitus with diabetic peripheral angiopathy without gangrene; G89.29 Other chronic pain; Z82.49 Family history of ischemic heart disease and other diseases of the circulatory system; Z82.5 Family history of asthma and other chronic lower respiratory diseases; Z88.0 Allergy status to penicillin; Z79.4 Long term (current) use of insulin; Z91.199 Patient's noncompliance with other medical treatment and regimen due to unspecified reason; Z99.81 Dependence on supplemental oxygen; Z79.01 Long term (current) use of anticoagulants; Z99.3 Dependence on wheelchair; X58.XXXA Exposure to other specified factors, initial encounter; Y93.89 Activity, other specified; Y92.89 Other specified places as the place of occurrence of the external cause; Y99.8 Other external cause status
CPT/HCPCS: 36415; 36600; 71045; 73590; 73610; 73630; 73721; 80048; 80053; 80061; 80202; 82375; 82553; 82805; 82962; 83036; 84145; 84484; 85014; 85018; 85025; 86850; 86900; 86920; 93005; 93923; 93971; 94640; 97110; 97162; 97166; 99285; A6261; C1893; J0692; J1815; J1940; J2060; J2185; J3370; J7060; P9016